=== PATIENT | male | born 1955 | race Caucasian/White ===

== ENCOUNTER → 2016-09-14 | Outpatient (CLI) | payer BC ==
[~2016-09-14] MED LIST: ADVIN25050 INH; ASPI325T45 PO; CHOL2000 PO; GLC/500 PO; LPT10 PO; MULT-506 PO; OMEG10007 PO; TIOTCAP INH
[2016-09-14 07:59] LABS: ESTIMATED AVERAGE GLUCOSE 134 mg/dl; HA1C FLAG Normal (Normal)
[2016-09-14 08:25] LABS: ALT/SGPT 33 U/L (12-78); BLOOD UREA NITROGEN 21 mg/dl (7-18); CALCIUM 9.3 mg/dl (8.5-10.1); CARBON DIOXIDE 31 mmol/L (21-32); CHLORIDE 105 mmol/L (98-107); CHOLESTEROL 154 mg/dl (0-200); GLUCOSE 112 mg/dl (70-99); POTASSIUM 4.3 mmol/L (3.5-5.1); SODIUM 144 mmol/L (136-145); TRIGLYCERIDES 126 mg/dl (0-150); VERY LOW DENSITY LIPOPROT CALC 25 mg/dl
[2016-09-14 08:28] LABS: ALB/GLOB RATIO 1.1 (0.9-2); ALKALINE PHOSPHATASE 72 U/L (45-117); AST/SGOT 24 U/L (15-37); CHOLESTEROL/HDL RATIO 3.9; HDL CHOLESTEROL 39 mg/dl; LDL CHOLESTEROL CALCULATED 90 mg/dl
== END | disposition home or self-care (01) ==
LOC: C.LAB 07:02
PROVIDERS: ATTEND Nurse Practitioner
DX: E11.9 Type 2 diabetes mellitus without complications (principal)

== ENCOUNTER → 2016-10-05 | Outpatient (CLI) | payer BC ==
[2016-10-05 09:06] LABS: BLOOD UREA NITROGEN 22 mg/dl (7-18); BUN/CREATININE RATIO 21.5 (10-20); CALCIUM 9.3 mg/dl (8.5-10.1); CARBON DIOXIDE 30 mmol/L (21-32); CHLORIDE 103 mmol/L (98-107); GLUCOSE 117 mg/dl (70-99); POTASSIUM 4.5 mmol/L (3.5-5.1); SODIUM 143 mmol/L (136-145)
== END | disposition home or self-care (01) ==
LOC: C.LAB 07:56
PROVIDERS: ATTEND Internal Medicine
DX: I10 Essential (primary) hypertension (principal); E11.9 Type 2 diabetes mellitus without complications

== ENCOUNTER → 2016-12-06 | Outpatient (CLI) | payer BC ==
[~2016-12-06] MED LIST changes: +OPTIRAY 320 IV PRN
--- NOTE | 2016-12-06 09:39 | DIAGNOSTIC IMAGING REPORT ---
Renal arterial Doppler DUPLEX RENAL ARTERY CLINICAL HISTORY: HYPERTENSION, PT NEEDS CT AFTER, BUT IS LEAVING COMING BACK hypertension TECHNIQUE: Arterial Doppler COMPARISON STUDY: None FINDINGS: Duplicated arterial structures to the right kidney. Velocity characteristics are unremarkable. Left kidney demonstrates normal arterial velocity characteristics. Impedance characteristics bilaterally are unremarkable. IMPRESSION: No significant stenotic process within the limitations of patient body habitus Electronically signed by: Matthew Rivas M.D. 12/06/2016 9:38 AM Dictated Date/Time: 12/06/2016 9:35 AM
--- NOTE | 2016-12-06 12:21 | DIAGNOSTIC IMAGING REPORT ---
CT SCAN OF THE ABDOMEN AND PELVIS WITH IV CONTRAST CLINICAL HISTORY: Adrenal nodules. COMPARISON STUDY: Abdominal CT dated 11/27/2015 and 07/31/2015. TECHNIQUE: Following the IV administration of 119 cc of Optiray 320, CT scan of the abdomen and pelvis is performed from the lung bases to the proximal femora. Images are reviewed in the axial, sagittal, and coronal planes. IV contrast was administered without complication. Automated dose control exposure was utilized. CT DOSE: 1082.60 mGycm FINDINGS: Lung bases: The heart is normal in size noting trace pericardial effusion. There is lipomatous hypertrophy of the interatrial septum. The lung bases are clear. There is a tiny hiatal hernia. Liver: The contrast-enhanced liver is normal in size, contour, and attenuation. There is no intrahepatic biliary ductal dilatation. The hepatic veins and portal veins are patent. Gallbladder: A calcified gallstone is identified. The gallbladder is otherwise normal as imaged. Spleen: Normal in size and attenuation. Pancreas: Unremarkable. Adrenal glands: There is a 4.2 cm left adrenal nodule and a 1.5 cm right adrenal nodule. These are unchanged from prior studies when differences in measurement technique are taken into account. These are incompletely characterized on today's examination but were previously shown to represent fat-containing adenomas. Kidneys: The contrast enhanced kidneys are normal in size and without hydronephrosis. The kidneys enhance symmetrically. Scattered cortical hypodensities measure up to 11 mm likely represent cysts but are too small for definitive characterization. Cortical scarring is seen in the lower pole of left kidney. Abdominal vasculature: There is advanced atherosclerotic calcification of the abdominal aorta. The patient is status post aortobiiliac stent graft repair of an infrarenal abdominal aortic aneurysm. The residual aneurysm sac measures 5.2 cm in AP diameter and 5.7 cm in transverse diameter. Bowel: A small bowel anastomosis is identified in the anterior abdomen. No bowel obstruction is seen. There are scattered colonic diverticula without CT evidence of acute diverticulitis. Moderate fecal retention is noted in the right colon. The appendix is not identified and reported surgically absent. Peritoneum: There is no intraperitoneal free air or abdominal ascites. Lymphadenopathy: None. Pelvic viscera: The prostate gland is diminutive and heterogeneous, noting coarse calcifications. The bladder wall appears thickened, possibly related to chronic outlet obstruction. Skeletal structures: No lytic or blastic lesions are seen. IMPRESSION: 1. There are no acute infectious or inflammatory findings in the abdomen or pelvis. 2. There are bilateral adrenal nodules, unchanged dating back to 07/31/2015. These were incompletely characterized on today's examination but were previously shown to represent fat-containing adenomas. 3. Mild colonic diverticulosis without CT evidence of acute diverticulitis. 4. There are postoperative changes from aortoiliac stent graft repair of an abdominal aortic aneurysm. The residual aneurysm sac measures 5.2 x 5.7 cm. 5. Cholelithiasis. 6. Additional findings as above. Electronically signed by: Dilip Cook M.D. 12/06/2016 12:19 PM Dictated Date/Time: 12/06/2016 12:12 PM
== END | disposition home or self-care (01) ==
LOC: C.CTS 08:35
PROVIDERS: ATTEND Internal Medicine
DX: I10 Essential (primary) hypertension (principal); E27.9 Disorder of adrenal gland, unspecified; K80.20 Calculus of gallbladder without cholecystitis without obstruction

== ENCOUNTER → 2017-02-04 | Outpatient (CLI) | payer BC ==
[~2017-02-04] MED LIST changes: -OPTIRAY 320 IV PRN
[2017-02-04 09:30] LABS: BASO % 0.5 %; BASO ABS # 0.05 K/uL (0-0.2); COMPLETE YES; EOS % 1.4 %; HEMATOCRIT 48.8 % (42-52); IG% 0.6 %; LYMPH % 16.9 %; LYMPH ABS # 1.82 K/uL (1.2-3.4); MEAN CORPUSCULAR HEMOGLOBIN 31.3 pg (25-34); MONO % 7.6 %; PLATELET COUNT 310 K/uL (130-400); RED BLOOD COUNT 4.98 M/uL (4.7-6.1)
[2017-02-04 09:43] LABS: CHOLESTEROL/HDL RATIO 3.7; PROSTATE SPECIFIC ANTIGEN 0.435 ng/ml (0.000-4.000)
[2017-02-04 09:56] LABS: ESTIMATED AVERAGE GLUCOSE 143 mg/dl; HA1C FLAG Normal (Normal)
== END | disposition home or self-care (01) ==
LOC: C.LAB 07:52
PROVIDERS: ATTEND Internal Medicine
DX: E11.9 Type 2 diabetes mellitus without complications (principal); I10 Essential (primary) hypertension; E78.5 Hyperlipidemia, unspecified; Z12.5 Encounter for screening for malignant neoplasm of prostate

== ENCOUNTER → 2017-06-07 | Outpatient (CLI) | payer BC | END | disposition home or self-care (01) | LOC: C.LAB 07:33 | PROVIDERS: ATTEND Internal Medicine | DX: Z11.59 Encounter for screening for other viral diseases (principal); E11.9 Type 2 diabetes mellitus without complications ==

== ENCOUNTER → 2017-11-25 | Day surgery (SDC) | payer BC ==
[2017-11-04 11:32] VITALS: Ht 180.3 cm; Wt 109.1 kg
[~2017-11-25] VITALS: Ht 180.3 cm; Wt 109.1 kg
[~2017-11-25] MED LIST changes: -ADVIN25050 INH; -ASPI325T45 PO; +ASPI400T11 PO; +ATOR-22 PO; +IRBE1TAB50 PO; +LIDOCAINE HCL 2% 2 ML VIAL (20MG/ML) ONE; -LPT10 PO; +MIDAZOLAM HCL 1 MG/ML 2ML VIAL ONE; +MULT-1093 PO; -MULT-506 PO; +ONDANSETRON INJ 2 MG/ML 2 ML VIAL ONE; +PROPOFOL IV EMULSION 10 MG/ML 20 ML VIAL IV ONE; +SODIUM CHLORIDE 0.9% 500ML 500 ML IV ONE; +SPRIN/30 INH; +SYMIN8045 INH; +TADA20TA PO; -TIOTCAP INH; +TRAM-10 PO
--- NOTE | 2017-11-25 09:54 | Endo History and Physical ---
History & Physical Date of Service: Nov 25, 2017. Chief Complaint: Screening Referring Physician: Dr. Bourgeois History of Present Illness 62 yo CM who presents for screening colonoscopy. Past Medical History Diabetes, High Cholesterol, COPD, Other Past Surgical History Hx Cardiac Surgery: No Hx Internal Defibrillator: No Hx Pacemaker: No Hx Abdominal Surgery: Yes (COLON RESECTION WITH APPY, AAA REPAIR) Hx of Implantable Prosthesis: No Hx Post-Op Nausea and Vomiting: No Hx Cancer Surgery: No Hx Thoracic Surgery: No Hx Orthopedic: Yes (ORIF LEFT ANKLE) Hx Urinary Tract Surgery: No Family History None Social History Smoking Status: Former Smoker Hx Substance Use: No Hx Alcohol Use: Yes (RARELY) Allergies Coded Allergies: No Known Allergies (Verified , 11/25/17) Current Medications Reported Home Medications Medications Dose Route/Sig Max Daily Dose Days Date Category Cialis (Tadalafil) 20 Mg Tab 20 Mg PO UD 11/04/17 Reported Ultram (Tramadol HCl) 50 Mg Tab 50 Mg PO Q8H PRN 11/04/17 Reported Irbesartan 300 Mg Tab 1 Tab PO QAM 11/04/17 Reported Glucophage (Metformin Hcl) 500 Mg Tab 2 Tab PO QPM 11/04/17 Reported Glucophage (Metformin Hcl) 500 Mg Tab 500 Mg PO QAM 11/04/17 Reported Lipitor (Atorvastatin Calcium) 20 Mg Tab 20 Mg PO QPM 11/04/17 Reported [place]-3 (Fish Oil) 1 Ea Cap 1 Cap PO QAM 11/04/17 Reported Vitamin D3 (Cholecalciferol) 2,000 Unit Cap 2 Cap PO QAM 11/04/17 Reported Centrum Silver 50+Men (Multiple Vitamins W/ Minerals) 1 Tab Tab 1 Tab PO QAM 11/04/17 Reported Anacin 400-32 mg (Aspirin-Caffeine) 1 Tab Tab 1 Tab PO QAM 11/04/17 Reported Spiriva Handihaler (Tiotropium Placida) 30 Puff/540 Mcg Aerp 1 Cap INH QAM 11/04/17 Reported Symbicort 80-4.5 Mcg/Act (Budesonide/Formoterol Fumarate) 60 Puffs/Inhaler Aero 2 Puff INH BID 11/04/17 Reported Vital Signs Weight (Kilograms): 109.09 Height (Feet): 5 Height (Inches): 11 Date Time Temp Pulse Resp B/P (MAP) Pulse Ox O2 Delivery O2 Flow Rate FiO2 11/25/17 09:07 36.7 89 18 137/82 (100) 91 Room Air Physical Exam General Appearance: WD/WN, no apparent distress Respiratory/Chest: Auscultation: breath sounds normal Cardiovascular: Heart Auscultation: RRR Abdomen: Bowel Sounds: normal Inspection & Palpation: soft, non-distended, no tenderness, guarding & rebound Assessment and Plan Assessment: 62 yo CM who presents for screening colonoscopy. Plan: Proceed with colonoscopy.
--- NOTE | 2017-11-25 10:26 | Discharge Instructions ---
Endoscopy Patient Instructions Date / Procedure(s) Performed Nov 25, 2017. Colonoscopy Allergy Information Coded Allergies: No Known Allergies (Verified , 11/25/17) Discharge Date / Findings Nov 25, 2017. Colon polyp Internal hemorrhoids Medication Instructions Stopped Medication(s): METFORMIN OK to resume all medications today as prescribed Reported Home Medications Medications Dose Route/Sig Max Daily Dose Days Date Category Cialis (Tadalafil) 20 Mg Tab 20 Mg PO UD 11/04/17 Reported Ultram (Tramadol HCl) 50 Mg Tab 50 Mg PO Q8H PRN 11/04/17 Reported Irbesartan 300 Mg Tab 1 Tab PO QAM 11/04/17 Reported Glucophage (Metformin Hcl) 500 Mg Tab 2 Tab PO QPM 11/04/17 Reported Glucophage (Metformin Hcl) 500 Mg Tab 500 Mg PO QAM 11/04/17 Reported Lipitor (Atorvastatin Calcium) 20 Mg Tab 20 Mg PO QPM 11/04/17 Reported [place]-3 (Fish Oil) 1 Ea Cap 1 Cap PO QAM 11/04/17 Reported Vitamin D3 (Cholecalciferol) 2,000 Unit Cap 2 Cap PO QAM 11/04/17 Reported Centrum Silver 50+Men (Multiple Vitamins W/ Minerals) 1 Tab Tab 1 Tab PO QAM 11/04/17 Reported Anacin 400-32 mg (Aspirin-Caffeine) 1 Tab Tab 1 Tab PO QAM 11/04/17 Reported Spiriva Handihaler (Tiotropium Gilbert) 30 Puff/540 Mcg Aerp 1 Cap INH QAM 11/04/17 Reported Symbicort 80-4.5 Mcg/Act (Budesonide/Formoterol Fumarate) 60 Puffs/Inhaler Aero 2 Puff INH BID 11/04/17 Reported Provider Instructions Activity Restrictions - No exercising or heavy lifting for 24 hours. - Do not drink alcohol the day of the procedure. - Do not drive a car or operate machinery until the day after the procedure. - Do not make any important decisions or sign important papers in 24 hours after the procedure. Following Day: - Return to full activity which may include returning to work/school. Diet Start your diet with liquids and light foods (jello, soup, juice, toast). Then eat your usual diet if not nauseated. Treatment For Common After Affects For mild abdominal pain, bloating, or excessive gas: - Rest - Eat lightly - Lie on right side Follow-Up Information Follow-up with Dr. Bourgeois as scheduled Anesthesia Information What You Should Know You have had a procedure that required some medicine to reduce anxiety and discomfort. This treatment is called moderate sedation. After receiving the treatment, you may be sleepy, but you will be able to breathe on your own. The effects of the treatment may last for several hours. Follow these instructions along with Activity/Diet recommendations noted above: * Do NOT do anything where dizziness or clumsiness would be dangerous. * Rest quietly at home today, then you can be up and about tomorrow. * Have a responsible person stay with you the rest of today. * You may have had an I.V. today. If so, you may take the dressing off later today. Recommendations Call your doctor if: * Trouble breathing * Continuous vomiting for more than 24 hours * Temperature above 101 degrees * Severe abdominal pain or bloating * Pain not relieved by pain medicine ordered * There is increased drainage or redness from any incision * A large amount of rectal bleeding greater than 2-3 tablespoons. (If you had a polyp/s removed or have hemorrhoids, a small amount of blood - from the rectum is to be expected.) * You have any unanswered questions or concerns. IN THE EVENT OF A SERIOUS EMERGENCY, GO TO THE NEAREST EMERGENCY ROOM Your discharge instructions were prepared by provider Nicholas Campbell. Patient Instructions Signature Page Tyree Caldwell Patient (or Guardian) Signature/Date: I have read and understand the instructions given to me by my caregivers. Caregiver/RN/Doctor Signature/Date: The above-named patient and/or guardian has received patient instructions on this date. + Original Patient Signature Page (only) stays with chart. Please make copy for patient.
--- NOTE | 2017-11-25 10:34 | GI REPORT ---
Procedure Date: 11/25/2017 9:39 AM Procedure: Colonoscopy Indications: Screening for colorectal malignant neoplasm Medicines: Monitored Anesthesia Care Complications: No immediate complications. Estimated Blood Loss: Estimated blood loss: none. Procedure: Pre-Anesthesia Assessment: - Prior to the procedure, a History and Physical was performed, and patient medications and allergies were reviewed. The patient's tolerance of previous anesthesia was also reviewed. The risks and benefits of the procedure and the sedation options and risks were discussed with the patient. All questions were answered, and informed consent was obtained. Prior Anticoagulants: The patient has taken aspirin, last dose was 1 day prior to procedure. ASA Grade Assessment: III - A patient with severe systemic disease. After reviewing the risks and benefits, the patient was deemed in satisfactory condition to undergo the procedure. After I obtained informed consent, the scope was passed under direct vision. Throughout the procedure, the patient's blood pressure, pulse, and oxygen saturations were monitored continuously. The Scope was introduced through the anus and advanced to the terminal ileum. The colonoscopy was performed without difficulty. The patient tolerated the procedure well. The quality of the bowel preparation was good. The terminal ileum, ileocecal valve, appendiceal orifice, and rectum were photographed. Findings: The perianal and digital rectal examinations were normal. A 18 mm polyp was found in the sigmoid colon. The polyp was pedunculated. The polyp was removed with a hot snare. Resection and retrieval were complete. Non-bleeding internal hemorrhoids were found during retroflexion. The hemorrhoids were small. Impression: - One 18 mm polyp in the sigmoid colon, removed with a hot snare. Resected and retrieved. - Non-bleeding internal hemorrhoids. Recommendation: - Resume previous diet. - Continue present medications. - Repeat colonoscopy for surveillance based on pathology results. - Return to primary care physician as previously scheduled. Nicholas Campbell DO 11/25/2017 10:34:05 AM This report has been signed electronically. Note Initiated On: 11/25/2017 9:39 AM I attest to the content of the Intraoperative Record and orders documented therein, exceptions below
[2017-11-25 10:56] VITALS: BP 138/76; PULSE 79; O2SAT 93
--- NOTE | 2017-11-25 10:58 | Anesthesiology Progress Note ---
Anesthesia Post Op Note Date & Time Nov 25, 2017 at 10:58 Vital Signs Pain Intensity: 0 Vital Signs Past 12 Hours Date Time Temp Pulse Resp B/P (MAP) Pulse Ox O2 Delivery O2 Flow Rate FiO2 11/25/17 10:56 79 18 138/76 (96) 93 Room Air 11/25/17 10:40 85 18 97/67 (77) 93 Room Air 11/25/17 10:27 36.7 84 16 97/51 (66) 95 Room Air 11/25/17 09:07 36.7 89 18 137/82 (100) 91 Room Air Notes Mental Status: alert / awake / arousable, participated in evaluation Pt Amnestic to Procedure: Yes Nausea / Vomiting: adequately controlled Pain: adequately controlled Airway Patency, RR, SpO2: stable & adequate BP & HR: stable & adequate Hydration State: stable & adequate Anesthetic Complications: no major complications apparent
== END | disposition home or self-care (01) ==
LOC: C.GI 08:23
PROVIDERS: ATTEND Internal Medicine
DX: Z12.11 Encounter for screening for malignant neoplasm of colon (principal); D12.5 Benign neoplasm of sigmoid colon; K64.8 Other hemorrhoids; I10 Essential (primary) hypertension; J44.9 Chronic obstructive pulmonary disease, unspecified; E11.9 Type 2 diabetes mellitus without complications; Z90.89 Acquired absence of other organs; Z90.49 Acquired absence of other specified parts of digestive tract; Z98.890 Other specified postprocedural states; Z87.891 Personal history of nicotine dependence; Z79.899 Other long term (current) drug therapy; Z79.82 Long term (current) use of aspirin

== ENCOUNTER → 2017-12-13 | Outpatient (CLI) | payer BC ==
[~2017-12-13] MED LIST changes: -LIDOCAINE HCL 2% 2 ML VIAL (20MG/ML) ONE; -MIDAZOLAM HCL 1 MG/ML 2ML VIAL ONE; -ONDANSETRON INJ 2 MG/ML 2 ML VIAL ONE; -PROPOFOL IV EMULSION 10 MG/ML 20 ML VIAL IV ONE; -SODIUM CHLORIDE 0.9% 500ML 500 ML IV ONE
[2017-12-13 09:15] LABS: ALBUMIN 3.7 gm/dl (3.4-5.0); ALT/SGPT 29 U/L (12-78); BLOOD UREA NITROGEN 20 mg/dl (7-18); CALCIUM 9.3 mg/dl (8.5-10.1); CARBON DIOXIDE 28 mmol/L (21-32); CHOLESTEROL 140 mg/dl (0-200); CREATININE 0.97 mg/dl (0.60-1.40); GLUCOSE 109 mg/dl (70-99); POTASSIUM 4.2 mmol/L (3.5-5.1); SODIUM 140 mmol/L (136-145)
[2017-12-13 09:18] LABS: ALKALINE PHOSPHATASE 78 U/L (45-117); AST/SGOT 17 U/L (15-37); LDL CHOLESTEROL CALCULATED 74 mg/dl; TOTAL PROTEIN 7.4 gm/dl (6.4-8.2)
[2017-12-13 09:48] LABS: HEMOGLOBIN A1C 6.5 % (4.5-5.6)
== END | disposition home or self-care (01) ==
LOC: C.LAB 07:24
PROVIDERS: ATTEND Nurse Practitioner
DX: E11.9 Type 2 diabetes mellitus without complications (principal)

== ENCOUNTER → 2018-01-26 | Outpatient (CLI) | payer BC ==
[~2018-01-26] MED LIST changes: +OPTIRAY 320 IV PRN
--- NOTE | 2018-01-26 09:57 | DIAGNOSTIC IMAGING REPORT ---
ABDOMEN AND PELVIS CT WITH IV AND ORAL CONTRAST CT DOSE: 1385.52 mGy.cm HISTORY: E27.9 Adrenal nodule [id number] TECHNIQUE: Multiaxial CT images of the abdomen and pelvis were performed following the use of intravenous and oral contrast. A dose lowering technique was utilized adhering to the principles of ALARA. COMPARISON STUDY: Abdomen and pelvis CT 12/06/2016 and 07/31/2015. FINDINGS: No change in size or appearance of the 4.0 x 2.8 cm left adrenal gland mass. This is indeterminate on this single phase study. Mild nodular thickening of the right adrenal gland remains unchanged. Mild dependent changes at the lung bases. No pneumoperitoneum. No pneumatosis. There are few small gallstones. The liver, spleen, and pancreas are unremarkable. Focal scarring within the lower pole of the left kidney. No hydronephrosis. Subcentimeter hypodense lesions within the kidneys are too small to characterize but favor cysts. These remain unchanged. No retroperitoneal lymphadenopathy. There is again noted aortobiiliac stent graft repair of an abdominal aortic aneurysm. The aneurysm sac measures up to 5.0 x 5.0 cm. This has decreased in size in the interval. The bladder is unremarkable. Colonic diverticulosis. No bowel wall thickening or obstruction. IMPRESSION: 1. No change in the 4.0 x 2.8 cm left adrenal gland mass. This is indeterminate on this study but was previously described as a benign adenoma. 2. Slight decrease in size in the abdominal aortic aneurysm status post aortobiiliac stent graft repair. 3. No bowel wall thickening or obstruction. 4. Cholelithiasis. 5. Colonic diverticulosis. Electronically signed by: Neil Martin M.D. 01/26/2018 9:55 AM Dictated Date/Time: 01/26/2018 9:44 AM
== END | disposition home or self-care (01) ==
LOC: C.CTS 09:05
PROVIDERS: ATTEND Internal Medicine
DX: E27.9 Disorder of adrenal gland, unspecified (principal); K80.20 Calculus of gallbladder without cholecystitis without obstruction; K57.30 Diverticulosis of large intestine without perforation or abscess without bleeding

== ENCOUNTER → 2018-04-27 | Outpatient (CLI) | payer BC ==
[~2018-04-27] MED LIST changes: -OPTIRAY 320 IV PRN
[2018-04-27 16:35] LABS: BASO % 0.3 %; BASO ABS # 0.03 K/uL (0-0.2); EOS % 1.1 %; EOS ABS # 0.11 K/uL (0-0.5); HEMATOCRIT 47.6 % (42-52); HEMOGLOBIN 15.7 g/dL (14.0-18.0); IG# 0.05 K/uL (0.00-0.02); LYMPH % 23.8 %; LYMPH ABS # 2.39 K/uL (1.2-3.4); MEAN CELL VOLUME 96.6 fL (80-100); MEAN CORPUSCULAR HEMOGLOBIN 31.8 pg (25-34); MEAN PLATELET VOLUME 10.2 fL (7.4-10.4); MONO % 7.9 %; MONO ABS # 0.79 K/uL (0.11-0.59); NEUT % 66.4 %; NEUT ABS # 6.69 K/uL (1.4-6.5); PLATELET COUNT 304 K/uL (130-400); RED CELL DISTRIBUTION WIDTH SD 49.6 fL (36.4-46.3); WHITE BLOOD COUNT 10.06 K/uL (4.8-10.8)
[2018-04-27 17:07] LABS: ALBUMIN 3.8 gm/dl (3.4-5.0); ALKALINE PHOSPHATASE 82 U/L (45-117); ALT/SGPT 37 U/L (12-78); AST/SGOT 18 U/L (15-37); BLOOD UREA NITROGEN 24 mg/dl (7-18); CARBON DIOXIDE 28 mmol/L (21-32); GLUCOSE 125 mg/dl (70-99); POTASSIUM 3.8 mmol/L (3.5-5.1); SODIUM 139 mmol/L (136-145); TOTAL PROTEIN 7.5 gm/dl (6.4-8.2)
== END | disposition home or self-care (01) ==
LOC: C.LAB 14:40
PROVIDERS: ATTEND Physician Assistant Medical
DX: E11.9 Type 2 diabetes mellitus without complications (principal); I10 Essential (primary) hypertension

== ENCOUNTER 2022-08-14 17:15 | Observation (INO) ==
--- NOTE | 2022-08-14 17:31 | ED Triage Note ---
Date of Service August 14, 2022 History of Present Illness This patient was briefly evaluated while in triage. An abbreviated physical exam was performed. This patient is a 67-year-old Male with past medical history of COPD who presents to the ED for evaluation of pancreatitis. Pt. was referred by PCP after CT scan and labs and was concerned for gallstone as well as pancreatitis. Physical Exam VITALS: Vitals are noted on the nurse's note and reviewed by myself. GENERAL: This is a 67 year old male, in no acute distress, nondiaphoretic, well- developed well-nourished. SKIN: No obvious rashes, edema, erythema HEAD: Normocephalic atraumatic. EYES: Conjunctivae without injection, sclerae without icterus. NECK: No JVD. LUNGS: No retractions or accessory muscle use. MUSCULOSKELETAL: Normal gait. NEURO: Patient was alert and oriented to person place and time. No focal neurological deficits. Initial orders for labs and / or imaging were placed and patient was placed in the waiting area until a bed is available. Please see further documentation for the full ED course.
[2022-08-14] MEDS ORDERED: SODIUM CHLORIDE 0.9% 1000ML 1,000 ML IV ONE (17:32)
[2022-08-14] MEDS ORDERED: KETOROLAC TROMETHAMINE 15 MG/ML VIAL IV STA (20:20)
[2022-08-14] MEDS ORDERED: ONDANSETRON INJ 2 MG/ML 2 ML VIAL IV STA (20:20)
--- NOTE | 2022-08-14 20:21 | Ultrasound Report ---
US abdomen limited CLINICAL HISTORY: Epigastric pain, cholelithiasis on CT TECHNIQUE: Multiple real-time sonographic images of the right upper quadrant were obtained. Comparison: Comparison is made to CT abdomen pelvis 08/14/2022 FINDINGS: The liver is diffusely echogenic in appearance with poor ultrasound penetration, with normal contour, which is consistent with fatty infiltration. A 1.1 x 1.0 x 1.7 cm hypoechoic area in the left lobe i s noted. No focal mass lesions are seen. No intrahepatic ductal dilatation is seen. Linear hypere choic foci with posterior shadowing are identified layering dependently within the gallbladder, which are consistent with gallstones. The gallbladder wall is not thickened. There is no pericholecystic f luid present. A sonographic Hernandez's sign was not elicited by the battery tester and repairer. The common duct jada sures 0.4 cm in diameter at the level of the hepatic artery. The visualized portions of the pancreas appear normal. The right kidney shows normal echogenicity, cortical thickness and renal contour. The right kidney sh ows no evidence of hydronephrosis or mass. No ascites or free fluid is seen in Chanel's pouch. IMPRESSION: 1. No acute abnormalities and in particular no evidence of acute cholecystitis. 2. Partially visualized left hepatic mass, nonspecific. If further evaluation is desired, nonemergen t CT or MRI liver mass protocol is recommended. ACT 112: Negative or not required by law. Electronically signed by: Karl Ledbetter M.D. 08/14/2022 8:19 PM
--- NOTE | 2022-08-14 21:21 | History & Physical Report ---
Date of Service August 14, 2022 Assessment & Plan (1) Acute pancreatitis: Plan: 67 yo male PMHx DM2, HTN, venous insufficiency of lower extremities, COPD, HLD, AAA s/p stent presents with 2 weeks of abdominal pain. #Acute Pancreatitis -presented with 2 weeks waxing/waning abd discomfort. Sent here by PCP with findings of acute pancreatitis on CT imaging. -Etiology unclear at this time. Suspect possible gallbladder pancreatitis with findings of cholelithiasis without signs of ductal obstruction/dilation. ?furosemide induced since this was newly prescribed 2 months ago and a known cause of drug induced pancreatitis. Very rare alcohol drinker. -WBC 14. Lipase 190. TGs 223. -Abdominal US: no evidence of acute cholecystitis -CT A/P: mild acute pancreatitis, gallbladder distention with cholelithiasis, no associated upstream atrophy or ductal dilation; as a precautionary measure a one month follow-up CT examination is recommended to exclude the less likely possibility of an underlying lesion -1L bolus in ED. Will cont. NSS @ 150mls/hr. -Tylenol and Toradol for pain relief -no abx indicated at this time -consider GI consult if suspicion of gallbladder pancreatitis -will hold home lasix until further evaluation of etiology #DM2 -hold home metformin -hyperglycemic protocol, SSI ordered -repeat A1c pending #HTN -cont. home irbesartan #Venous insufficiency -hold home lasix as above #COPD -cont. home spiriva, symbicort #HLD -cont. home statin #Anxiety/depression -cont. home wellbutrin DVT ppx: lovenox FEN/GI: NPO Code Status: full Dispo: med surg (2) Venous insufficiency of both lower extremities: (3) Type II diabetes mellitus: (4) COPD (chronic obstructive pulmonary disease): (5) AAA (abdominal aortic aneurysm) without rupture: (6) Hyperlipidemia: (7) Hypertension: History of Present Illness Chief Complaint: abdominal pain Primary Care Provider: Jose Martin Bourgeois MD 67 yo male PMHx DM2, HTN, venous insufficiency of lower extremities, COPD, HLD, AAA s/p stent presents with 2 weeks of abdominal pain. He was sent here by his primary care provider with findings of acute pancreatitis on CT imaging. Shortly after Thanksgiving patient started having waxing and waning diffuse abdominal discomfort exacerbated after eating. He was in a lot of pain last night which had improved by this morning. In general he has lost his appetite since symptom onset. He has tried to tolerate liquid broths and advance diet but he been unable to do so without setback. He is passing gas but has had ongoing constipation unresolved with miralax and ducolax. Associated nausea. Denies fevers, chills, fatigue, chest pain, sob, vomiting, blood in stool, diarrhea. Very rare alcohol use, maybe has one beer a year. His mom did have a h/o gallbladder disease with subsequent cholecystectomy. Of note, pt did recently start furosemide in June 2022 for his venous insufficiency. Allergies Allergy/AdvReac Type Severity Reaction Status Date / Time No Known Allergies Allergy Verified 08/14/22 13:34 Home Medications Medication Instructions Recorded Confirmed Type cholecalciferol (vitamin D3) 50 2,000 unit PO QAM 12/23/19 08/14/22 History mcg (2,000 unit) tablet aspirin 81 mg tablet,delayed 81 mg PO QAM 01/08/21 08/14/22 History release metformin 500 mg tablet,extended 500 mg PO .COMPLEX #270 tabs 10/22/21 08/14/22 Rx release 24 hr budesonide-formoterol HFA 80 2 puff inhalation BID #10.2 grams 01/24/22 08/14/22 Rx mcg-4.5 mcg/actuation aerosol inhaler (Symbicort) irbesartan 150 mg tablet 150 mg PO QAM #90 tabs 04/05/22 08/14/22 Rx bupropion HCl 150 mg 24 hr tablet, 150 mg PO QAM #30 tabs 05/06/22 08/14/22 Rx extended release atorvastatin 20 mg tablet 20 mg PO HS #90 tabs 06/10/22 08/14/22 Rx tramadol 50 mg tablet See Rx Instructions PO Q6H PRN 06/10/22 08/14/22 Rx Pain #100 tabs furosemide 40 mg tablet 40 mg PO Q OTHER DAY 08/14/22 08/14/22 History potassium chloride 10 mEq 10 meq PO Q OTHER DAY 08/14/22 08/14/22 History capsule,extended release tiotropium bromide 18 mcg capsule 1 cap inhalation QPM 08/14/22 08/14/22 History with inhalation device (Spiriva with HandiHaler) Past Med/Surg History Medical History Adrenal nodule s/p left adrenalectomy for cortisol secreting adenoma Aneurysm AAA - 2016 - [facility] Chronic obstructive pulmonary disease WELL CONTROLLED Diabetes mellitus, type 2 NIDDM History of aortic aneurysm FOLLOWS WITH DR. GALLARDO Tubular adenoma of colon Type II diabetes mellitus Surgical History History of appendectomy History of bowel resection APPROX 20 yr ago History of cataract surgery Bilateral History of colonoscopy History of open reduction and internal fixation (ORIF) procedure left ankle History of tooth extraction Hx of total adrenalectomy left S/P AAA repair 2015 Family History Aunt Ovarian cancer Mother Diabetes Hypertension Father Diabetes Hypertension Denies family history of Prostate cancer Myocardial infarction Breast cancer Colorectal cancer Social History Smoking Status: Current some day smoker Second Hand Exposure: No; Do You Dip or Chew Tobacco: No; Tobacco Cessation Education Requested by Patient: No Hx Alcohol Use: No Hx Substance Use: No Preferred Language: Armenian Communication Ability: Effective Visual Impairment: No Limitations Corn Grinder Required: No Beliefs That Will Affect Care: None marital status: Current Living Situation: Spouse Other Information That Helps Us Care for You: No Feels Safe at Home: Yes Safety Concerns: Feels Safe At This Time caffeine: Yes Seatbelt Use: always Sunscreen Use: No Assistive Devices: None Review of Systems Review of Systems: All systems reviewed & are unremarkable except as noted in HPI & below Physical Exam Physical Exam: Constitutional: in no acute distress, pleasant, morbidly obese. Vitals as above. HEENT: No scleral injection or discharge.Moist mucous membranes. Clear oropharynx without exudate/erythema. Neck: Supple without lymphadenopathy or thyromegaly. Trachea midline. Lungs: Clear to auscultation bilaterally with good effort. Cardiac: RRR. No murmurs.2+ distal peripheral pulses. No JVD. Abdomen: Bowel sounds present. Soft. Mildly distended. Mild epigastric and RUQ tenderness. Neg [place].No guarding or rebound tenderness. No hepatosplenomegaly. MSK: No cyanosis or clubbing. Extremities motor strength 5/5. Skin: No rashes, warm, dry. Neurologic: No focal deficits. Psych: AOx3 Results & Data Results & Data ([facility]) Vital Signs (Past 12 Hours) Vital Signs Temp Pulse Resp BP Pulse Ox O2 Del Method 08/14/22 17:30 36.9 C 122 H 19 101/64 90 Room Air Laboratory Results Impressions Abdomen Ultrasound 08/14/22 17:32 US abdomen limited CLINICAL HISTORY: Epigastric pain, cholelithiasis on CT TECHNIQUE: Multiple real-time sonographic images of the right upper quadrant w ere obtained. Comparison: Comparison is made to CT abdomen pelvis 08/14/2022 FINDINGS: The liver is diffusely echogenic in appearance with poor ultrasound penetration, with normal contour, which is consistent with fatty infiltration. A 1.1 x 1.0 x 1.7 cm hypoechoic area in the left lobe is noted. No focal mass lesions are seen. No intrahepatic ductal dilatation is seen. Linear hyperechoic foci with posterior shadowing are identified layering dependently within the gallbladder, which are consistent with gallstones. The gallbladder wall is not thickened. There is no pericholecystic fluid present. A sonographic Hernandez's sign was not elicited by the marine habitat resource specialist. The common duct measures 0.4 cm in diameter at the level of the hepatic artery. The visualized portions of the pancreas appear normal. The right kidney shows normal echogenicity, cortical thickness and renal contour. The right kidney shows no evidence of hydronephrosis or mass. No ascites or free fluid is seen in Chanel's pouch. IMPRESSION: 1. No acute abnormalities and in particular no evidence of acute cholecystitis. 2. Partially visualized left hepatic mass, nonspecific. If further evaluation is desired, nonemergent CT or MRI liver mass protocol is recommended. ACT 112: Negative or not required by law. Electronically signed by: Karl Ledbetter M.D. 08/14/2022 8:19 PM Supervising Physician Co-Signing Physician Notes Attending addendum: I have physically seen this patient, have supervised the medical residents activities, and agree with the H&P unless as otherwise noted. Assessment and Plan: Acute pancreatitis- Different etiologies including gallbladder associated, medication induced furosemide Lipase 190 upon admission, follow serially along with LFTs, which were on admission normal Abdominal ultrasound no evidence of acute cholecystitis CT abdomen pelvis shows mild acute pancreatitis gallbladder distention with cholelithiasis Status post 1 L normal saline bolus in the ED and will continue 150 mils per hour MRCP if symptoms persist and/or progress Diabetes mellitus- Hold metformin Patient Accu-Cheks with SSI Hypertension- Continue irbesartan Venous insufficiency- Hold furosemide Remaining orders and notations as noted Resident Activity Tracking Resident Involvement: Resident Care Provided Care Provided: Adult [facility]
[2022-08-14] MEDS ORDERED: ONDANSETRON INJ 2 MG/ML 2 ML VIAL IV PRN (23:01)
[2022-08-14] MEDS ORDERED: GLUCOSE 40% GEL 15 GM TUBE PO PRN (23:01)
[2022-08-14] MEDS ORDERED: ACETAMINOPHEN 325 MG TAB PO PRN (23:01)
[2022-08-14] MEDS ORDERED: KETOROLAC TROMETHAMINE 15 MG/ML VIAL IV PRN (23:01)
[2022-08-14] MEDS ORDERED: CARBOHYDRATES FOR HYPOGLYCEMIA PO PRN (23:01)
[2022-08-14] MEDS ORDERED: DEXTROSE 50% 50 ML SYRINGE IV PRN (23:01)
[2022-08-14] MEDS ORDERED: GLUCAGON FOR INJ 1 MG VIAL SQ PRN (23:01)
[2022-08-14] MEDS ORDERED: GLUCOSE 10 TAB/TUBE PO PRN (23:01)
[2022-08-14] MEDS: SODIUM CHLORIDE 0.9% 1000ML 1,000 ML IV SCH (23:22)
[2022-08-14] MEDS ORDERED: Nursing to Pharmacy Communication SCH (23:30)
[2022-08-15] MEDS: INSULIN ASPART PER UNIT SC SCH ×3 (00:17→14:53)
[2022-08-15] MEDS: ENOXAPARIN INJ 40 MG/0.4 ML SYR SQ SCH ×2 (00:54→21:45)
--- NOTE | 2022-08-15 02:56 | Emergency Department Note ---
History of Present Illness General Chief Complaint: GI Assessment Stated Complaint: PANCREATITIS, REFERRED BY DOC, Time Seen by Provider: 08/14/22 20:16 History of Present Illness Provider Complaint: abdominal pain Onset (ago): 3 day(s) Pain Consistency: constant Location: epigastric Radiation: none Severity: moderate Maximum Pain Intensity: 8 Current Pain Intensity: 8 Quality: + stabbing and + sharp Relieved By: + nothing Exacerbated By: + eating Context: no foreign travel, no possible food poisoning, no sick contacts, no recent antibiotic use, no recent surgery/procedure or no recent injury Associated Symptoms: + nausea; no vomiting, no diarrhea, no fever, no chills, no constipation, no dysuria, no hematemesis, no hematochezia, no hematuria, no anorexia and no headache Home Medications Medication Instructions Recorded Confirmed Type cholecalciferol (vitamin D3) 50 2,000 unit PO QAM 12/23/19 08/14/22 History mcg (2,000 unit) tablet aspirin 81 mg tablet,delayed 81 mg PO QAM 01/08/21 08/14/22 History release metformin 500 mg tablet,extended 500 mg PO .COMPLEX #270 tabs 10/22/21 08/14/22 Rx release 24 hr budesonide-formoterol HFA 80 2 puff inhalation BID #10.2 grams 01/24/22 08/14/22 Rx mcg-4.5 mcg/actuation aerosol inhaler (Symbicort) irbesartan 150 mg tablet 150 mg PO QAM #90 tabs 04/05/22 08/14/22 Rx bupropion HCl 150 mg 24 hr tablet, 150 mg PO QAM #30 tabs 05/06/22 08/14/22 Rx extended release atorvastatin 20 mg tablet 20 mg PO HS #90 tabs 06/10/22 08/14/22 Rx tramadol 50 mg tablet See Rx Instructions PO Q6H PRN 06/10/22 08/14/22 Rx Pain #100 tabs furosemide 40 mg tablet 40 mg PO Q OTHER DAY 08/14/22 08/14/22 History potassium chloride 10 mEq 10 meq PO Q OTHER DAY 08/14/22 08/14/22 History capsule,extended release tiotropium bromide 18 mcg capsule 1 cap inhalation QPM 08/14/22 08/14/22 History with inhalation device (Spiriva with HandiHaler) Allergies Allergy/AdvReac Type Severity Reaction Status Date / Time No Known Allergies Allergy Verified 08/14/22 13:34 Past Med/Surg History Medical History 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 GALLARDO Tubular adenoma of colon Type II diabetes mellitus Surgical History History of appendectomy History of bowel resection APPROX 20 yr ago History of cataract surgery Bilateral History of colonoscopy History of open reduction and internal fixation (ORIF) procedure left ankle History of tooth extraction Hx of total adrenalectomy left S/P AAA repair 2015 Family History Aunt Ovarian cancer Mother Diabetes Hypertension Father Diabetes Hypertension Denies family history of Prostate cancer Myocardial infarction Breast cancer Colorectal cancer Social History Smoking Status: Current some day smoker Second Hand Exposure: No; Do You Dip or Chew Tobacco: No; Tobacco Cessation Education Requested by Patient: No Hx Alcohol Use: No Hx Substance Use: No Preferred Language: Romanian Communication Ability: Effective Visual Impairment: No Limitations Kettle Cook Required: No Beliefs That Will Affect Care: None marital status: Current Living Situation: Spouse Other Information That Helps Us Care for You: No Feels Safe at Home: Yes Safety Concerns: Feels Safe At This Time caffeine: Yes Seatbelt Use: always Sunscreen Use: No Assistive Devices: Denture - Upper and Glasses Review of Systems A total of 10 systems reviewed and were otherwise negative Physical Exam Vital Signs: Vital Signs - 24 hr 08/14/22 17:30 08/14/22 21:16 Temperature 36.9 C Temperature Source Temporal Artery Sc an Pulse Rate 122 H Pulse Rate [Apical ] 110 H Respiratory Rate 19 20 Respiratory Effort / Characteristics Non-Labored Sponta neous Non-Labored Respiratory Depth Normal Normal Blood Pressure 101/64 Blood Pressure [Le ft Arm] 107/74 Blood Pressure Saundra n 76 Blood Pressure Saundra n [Left Arm] 85 Pulse Oximetry 90 99 Oxygen Delivery Me thod Room Air Room Air Sepsis Recent Feve r Within 48 Hours No Sepsis New/Unexpla ined Change in Men nanette Status N/A Sepsis Action Take n by Nursing No Action Required Physical Exam: Physical Exam GENERAL: He is oriented to person, place, and time. He appears well-developed and well-nourished. He does not appear distressed. HENT: Exam performed. - Head: Normocephalic and atraumatic. - Right Ear: External ear normal. No mastoid tenderness. - Left Ear: External ear normal. No mastoid tenderness. - Mouth/Throat: The oropharynx is clear and moist. No trismus in the jaw. No dental abscesses or uvula swelling. No oropharyngeal exudate or tonsillar abscesses. EYES: Conjunctivae and EOM are normal. Pupils are equal, round, and reactive to light. Right eye exhibits no discharge. Left eye exhibits no discharge. No scleral icterus. NECK: Normal range of motion. Neck supple. No JVD present. No spinous process tenderness present. No carotid bruit present. No rigidity. No tracheal deviation and normal range of motion present. No Brudzinski's sign and no Kernig's sign noted. CV: Normal rate, regular rhythm, normal heart sounds and intact distal pulses. There is no peripheral edema. Palpable radial pulses bue. PULM/CHEST: Effort normal and breath sounds normal. No respiratory distress. No stridor. He has no wheezes. He has no rales. - Chest Wall: He exhibits no tenderness. ABD: The abdomen is soft. Bowel sounds are normal. He has no distension. No mass is present. There is no tenderness. There is no rebound, no guarding, no Hernandez's sign and no tenderness at McBurney's point. Rovsig negative. MUSC/SKEL: Normal range of motion. There is no peripheral edema, tenderness or deformity. LYMPH: No cervical adenopathy. NEURO: He is alert and oriented to person, place, and time. He has normal strength. No cranial nerve deficit or sensory deficit. Coordination and gait normal. GCS eye subscore is 4. GCS verbal subscore is 5. GCS motor subscore is 6. Cerebellar tests wnl. SKIN: Skin is warm and dry. He is not diaphoretic. PSYCH: He has a normal mood and affect. Behavior is normal. Judgment and thought content normal. Course Course 2016: The patient was evaluated in room C4. A complete history and physical exam was performed Administered Medications Enoxaparin Sodium (Enoxaparin Inj 40 Mg/0.4 Ml Syr) 40 mg SQ PM ORALIA Stop: 09/13/22 23:00 Last Admin: 08/15/22 00:54 Dose: 40 mg Documented By: DINA Sodium Chloride (Nss 1000ml) 1,000 mls @ 150 mls/hr IV .Q6H40M ORALIA Stop: 09/13/22 20:29 Last Admin: 08/14/22 23:22 Dose: 150 mls/hr Documented By: DINA Insulin Aspart (Insulin Aspart Per Unit) 0 units SC Q6 ORALIA Stop: 09/14/22 00:00 Last Admin: 08/15/22 00:17 Dose: Not Given Documented By: DINA Co-signed By: JOAN Discontinued Medications Sodium Chloride (Nss 1000ml) 1,000 mls @ 999 mls/hr IV .Q1H1M ONE Stop: 08/14/22 18:32 Last Infusion: 08/14/22 23:20 Dose: 0 mls/hr Documented By: Admin: 08/14/22 20:51 Dose: 999 mls/hr Documented By: ISADORA Ketorolac Tromethamine (Ketorolac Tromethamine 15 Mg/Ml Vial) 15 mg IV NOW STA Stop: 08/14/22 20:21 Last Admin: 08/14/22 20:51 Dose: 15 mg Documented By: ISADORA Ondansetron HCl (Ondansetron Inj 2 Mg/Ml 2 Ml Vial) 4 mg IV NOW STA Stop: 08/14/22 20:21 Last Admin: 08/14/22 20:51 Dose: 4 mg Documented By: ISADORA Medical Decision Making Laboratory Data Lab Results 08/14/22 Range/Units 21:35 SARS-CoV-2, RNA, NAAT NEGATIVE (NEGATIVE) Imaging Data Radiologist's Impression: Abdomen Ultrasound 08/14/22 17:32 US abdomen limited CLINICAL HISTORY: Epigastric pain, cholelithiasis on CT TECHNIQUE: Multiple real-time sonographic images of the right upper quadrant were obtained. Comparison: Comparison is made to CT abdomen pelvis 08/14/2022 FINDINGS: The liver is diffusely echogenic in appearance with poor ultrasound penetration, with normal contour, which is consistent with fatty infiltration. A 1.1 x 1.0 x 1.7 cm hypoechoic area in the left lobe is noted. No focal mass lesions are seen. No intrahepatic ductal dilatation is seen. Linear hyperechoic foci with posterior shadowing are identified layering dependently within the gallbladder, which are consistent with gallstones. The gallbladder wall is not thickened. There is no pericholecystic fluid present. A sonographic Hernandez's sign was not elicited by the director radio news. The common duct measures 0.4 cm in diameter at the level of the hepatic artery. The visualized portions of the pancreas appear normal. The right kidney shows normal echogenicity, cortical thickness and renal contour. The right kidney shows no evidence of hydronephrosis or mass. No ascites or free fluid is seen in Chanel's pouch. IMPRESSION: 1. No acute abnormalities and in particular no evidence of acute cholecystitis. 2. Partially visualized left hepatic mass, nonspecific. If further evaluation is desired, nonemergent CT or MRI liver mass protocol is recommended. ACT 112: Negative or not required by law. Electronically signed by: Karl Ledbetter M.D. 08/14/2022 8:19 PM [facility] Narrative Cardiac monitoring: An order was placed for continuous cardiac monitoring. The monitor shows a rate of 90 with sinus rhythm EMR reviewed. Patient had lab work done today outpatient today which showed lipase of 190 AST ALT alkaline phosphatase within normal limits. Leukocytosis of 14.29. Patient also had a CT scan of the abdomen which showed pancreatitis. There is gallbladder distention with cholelithiasis no evidence of cholecystitis. [facility]. Impression & Plan Acute pancreatitis Discharge Plan Visit Data Chief Complaint: GI Assessment Stated Complaint: PANCREATITIS, REFERRED BY DOC, ED Provider: Jim Henry Discharge Problem: Acute pancreatitis Patient Disposition: Admitted As Inpatient Discharge Instructions Interventions: ED Discharge Assessment Last Done: 08/14/22 22:56 : Acute pancreatitis Qualifiers: Pancreatitis type: unspecified pancreatitis type Acute pancreatitis complication: unspecified Qualified Code(s): K85.90 - Acute pancreatitis without necrosis or infection, unspecified
[2022-08-15 06:08] LABS: Basophils # (auto) 0.05 K/uL (0-0.2); Basophils % (auto) 0.5 %; Eosinophils % (auto) 0.9 %; Hematocrit (blood only) 54.3 % (40.1-51.0); Hemoglobin 17.8 g/dl (14.0-18.0); Immature Granulocytes # (auto) 0.06 K/uL (0.00-0.02); Immature Granulocytes % (auto) 0.6 %; Lymphocytes # (auto) 1.79 K/uL (1.2-3.4); Lymphocytes % (auto) 16.9 %; Mean Corpuscular Hemoglobin 30.6 pg (25.0-34.0); Mean Corpuscular Hgb Conc 32.8 g/dL (32.0-36.0); Mean Corpuscular Volume 93.3 fL (80.0-100.0); Mean Platelet Volume 9.5 fL (9.4-12.4); Monocytes # (auto) 0.97 K/uL (0.24-0.82); Monocytes % (auto) 9.2 %; Neutrophils # (auto) 7.62 K/uL (1.4-6.5); Neutrophils % (auto) 71.9 %; Platelet Count 261 K/uL (130-400); RDW Coefficient of Variation 14.2 % (11.5-14.5); RDW Standard Deviation 48.9 fL (36.4-46.3); Red Blood Count 5.82 M/uL (4.63-6.08); White Blood Count 10.59 K/ul (4.8-10.8)
[2022-08-15] MEDS: SODIUM CHLORIDE 0.9% 1000ML 1,000 ML IV SCH ×2 (06:12→12:57)
[2022-08-15 06:31] LABS: Albumin Globulin Ratio 1.3 (0.9-2); BUN Creatinine Ratio 26.6 (10-20); Bilirubin,Total 0.8 mg/dl (0.2-1.0); Calcium 9.6 mg/dl (8.5-10.1); Creatinine Clr Calc Pharmacy 83.6 ml/min; Est GFR (African American) 82.1 ml/min; Est GFR (Non-African American) 70.9 ml/min; Globulin 3.1 gm/dl (2.5-4.0); Potassium 4.5 mmol/L (3.5-5.1); Total Protein 7.1 gm/dl (6.0-8.3)
[2022-08-15] MEDS ORDERED: INSULIN ASPART PER UNIT SC SCH (07:30)
[2022-08-15 08:00] LABS: Estimated Average Glucose 157 mg/dl; Hemoglobin A1C 7.1 % (4.5-5.6)
[2022-08-15] MEDS: buPROPion XL 150 MG TABCR PO SCH (09:35)
[2022-08-15] MEDS: IRBESARTAN 150 MG TAB PO SCH (09:36)
[2022-08-15] MEDS: UMECLIDINIUM BROMIDE 62.5MCG/BLISTER 7 PUFFS/INHALER INH SCH (11:31)
[2022-08-15] MEDS: FLUTICASONE/VILANTEROL 100/25MCG 14 PUFFS/INHALER INH SCH (11:31)
--- NOTE | 2022-08-15 15:14 | Hospitalist Progress Note ---
Date of Service August 15, 2022 Assessment & Plan (1) Acute pancreatitis: Plan: Mild elevation of lipase to 180. Start full liquid diet. Expect discharge by tomorrow Constipation new onsetcontinue MiraLAX at home. Admits to not eating fibers much. Will start now (2) Type II diabetes mellitus: Plan: Stop sliding scale insulin blood sugars 103, 108. Start metformin extended release 500 mg daily which is home dose (3) COPD (chronic obstructive pulmonary disease): Plan: Oxygen saturations marginal at 91%. Not needing oxygen. Continue home inhalers (4) Hypertension: Plan: Well-controlled on irbesartan On Lasix 40 mg every other day since June after seen by cardiology for venous insufficiency of his legs. Continue. Normal renal function (5) Hyperlipidemia: Plan: fasting lipid panel : 07/26,Triglycerides 223 LDL 70 (6) Nicotine dependence: Plan: Counseled to stop smoking. Says he smokes when he is stressed but since skilled nursing, the stress has gone down. denies depressed mood. Will readdress at discharge Plan Anticipate discharge by tomorrow afternoon. Admission and Anticipated Discharge Date Admission Date: August 14, 2022 Subjective seen at 1330 h No complaints. Complains of being thirsty. Denies abdominal pain.excited about plan to start liquids. Had had abdominal pain for over 10 days and was attributing it to constipation. Took MiraLAX and Dulcolax suppository at home which caused to him to have a bowel movement. Usually not constipated. Does not drink any alcohol. Smokes 5 to 6 cigarettes a day. Denies any shortness of breath/dizziness/nausea or vomiting. No chest pain. Physical Exam Physical Exam: Pleasant alert male, cheerful and conversant, looks well, obese Head and neck moist oral mucosa, anicteric sclerae Chest is clear to auscultation Abdomen distended, nontender [employer] grossly intact Extremities no edema Results & Data Results & Data ([facility]) Vital Signs (Past 12 Hours) Vital Signs Temp Pulse Resp BP BP Pulse Ox O2 Del Method 08/15/22 12:44 36.6 C 80 18 122/64 92 Room Air 08/15/22 11:00 36.7 C 90 18 111/62 91 Room Air 08/15/22 09:50 Room Air 08/15/22 07:29 36.6 C 86 20 115/71 90 Room Air Laboratory Results Abnormal lab results 08/14/22 08/15/22 08/15/22 Range/Units 23:52 05:45 05:45 Hct 54.3 H (40.1-51.0) % RDW Std Deviation 48.9 H (36.4-46.3) fL Neut # (Auto) 7.62 H (1.4-6.5) K/uL [place] # (Auto) 0.97 H (0.24-0.82) K/uL Immature Gran # (Auto) 0.06 H (0.00-0.02) K/uL Sodium 135 L (136-145) mmol/L BUN 29 H (6-23) mg/dl BUN/Creatinine Ratio 26.6 H (10-20) Glucose 105 H (70-99(Fasting)) mg/dl POC Glucose 103 H (70-99) mg/dl Hemoglobin A1c (4.5-5.6) % Lipase 188 H (11-82) U/L 08/15/22 08/15/22 Range/Units 05:45 06:03 Hct (40.1-51.0) % RDW Std Deviation (36.4-46.3) fL Neut # (Auto) (1.4-6.5) K/uL [place] # (Auto) (0.24-0.82) K/uL Immature Gran # (Auto) (0.00-0.02) K/uL Sodium (136-145) mmol/L BUN (6-23) mg/dl BUN/Creatinine Ratio (10-20) Glucose (70-99(Fasting)) mg/dl POC Glucose 103 H (70-99) mg/dl Hemoglobin A1c 7.1 H (4.5-5.6) % Lipase (11-82) U/L Medications Administered Home Medications Medication Instructions Recorded Confirmed Last Taken cholecalciferol (vitamin D3) 50 2,000 unit PO QAM 12/23/19 08/14/22 01/13/21 mcg (2,000 unit) tablet aspirin 81 mg tablet,delayed 81 mg PO QAM 01/08/21 08/14/22 01/12/21 release metformin 500 mg tablet,extended 500 mg PO .COMPLEX #270 tabs 10/22/21 08/14/22 Unknown release 24 hr budesonide-formoterol HFA 80 2 puff inhalation BID #10.2 grams 01/24/22 08/14/22 Unknown mcg-4.5 mcg/actuation aerosol inhaler (Symbicort) irbesartan 150 mg tablet 150 mg PO QAM #90 tabs 04/05/22 08/14/22 Unknown bupropion HCl 150 mg 24 hr tablet, 150 mg PO QAM #30 tabs 05/06/22 08/14/22 Unknown extended release atorvastatin 20 mg tablet 20 mg PO HS #90 tabs 06/10/22 08/14/22 Unknown tramadol 50 mg tablet See Rx Instructions PO Q6H PRN 06/10/22 08/14/22 Unknown Pain #100 tabs furosemide 40 mg tablet 40 mg PO Q OTHER DAY 08/14/22 08/14/22 Unknown potassium chloride 10 mEq 10 meq PO Q OTHER DAY 08/14/22 08/14/22 Unknown capsule,extended release tiotropium bromide 18 mcg capsule 1 cap inhalation QPM 08/14/22 08/14/22 Unknown with inhalation device (Spiriva with HandiHaler) Active Medications Generic Name Dose Route Start Last Admin Trade Name Freq PRN Reason Stop Dose Admin Bupropion HCl 150 mg 08/15/22 09:00 08/15/22 09:35 Bupropion Xl 150 Mg Tabcr PO 09/14/22 08:59 150 mg QAM ORALIA Administration Enoxaparin Sodium 40 mg 08/14/22 23:45 08/15/22 00:54 Enoxaparin Inj 40 Mg/0.4 Ml Syr SQ 09/13/22 23:00 40 mg PM ORALIA Administration Fluticasone/Vilanterol 1 puffs 08/15/22 09:00 08/15/22 11:31 Fluticasone/Vilanterol 100/25mcg 14 Puffs/Inhaler INH 09/14/22 08:59 Not Given DAILY ORALIA Irbesartan 150 mg 08/15/22 09:00 08/15/22 09:36 Irbesartan 150 Mg Tab PO 09/14/22 08:59 150 mg QAM ORALIA Administration Umeclidinium [place] 1 puffs 08/15/22 09:00 08/15/22 11:31 Umeclidinium [place] 62.5mcg/Blister 7 Puffs/Inhaler INH 09/14/22 08:59 Not Given QAM ORALIA PG Care Time/CCT Total # of Minutes Spent Total Time Spent with Patient: Total time spent is greater than 50% in coordination of care (as documented) at patient's floor/unit and/or counseling patient: Coding Level of Care Code 36802 Subseq Hosp Care Lvl 3 Diagnoses Acute pancreatitis K85.90 Acute pancreatitis complication: unspecified Pancreatitis type: unspecified pancreatitis type Type II diabetes mellitus E11.9 COPD (chronic obstructive pulmonary disease) J44.9 Hypertension I10 Hyperlipidemia E78.5 Nicotine dependence F17.200 (1) Acute pancreatitis Acute pancreatitis complication: unspecified Pancreatitis type: unspecified pancreatitis type Qualified Code(s): K85.90 - Acute pancreatitis without necrosis or infection, unspecified
[2022-08-15] MEDS: metFORMIN HCL ER 500 MG TABCR PO SCH (17:39)
[2022-08-15] MEDS ORDERED: ATORVASTATIN 20 MG TAB PO SCH (21:00)
--- NOTE | 2022-08-15 22:55 | Billing Data ---
Date of Service August 15, 2022 Coding Level of Care Code INT OBSERVATION CARE 70M LVL 3
[2022-08-16] MEDS: IRBESARTAN 150 MG TAB PO SCH (08:06)
[2022-08-16] MEDS: buPROPion XL 150 MG TABCR PO SCH (08:06)
[2022-08-16] MEDS: UMECLIDINIUM BROMIDE 62.5MCG/BLISTER 7 PUFFS/INHALER INH SCH (08:07)
[2022-08-16] MEDS: FLUTICASONE/VILANTEROL 100/25MCG 14 PUFFS/INHALER INH SCH (08:08)
[2022-08-16] MEDS: metFORMIN HCL ER 500 MG TABCR PO SCH (16:47)
--- NOTE | 2022-08-16 16:47 | Discharge Summary ---
Date of Service August 16, 2022 Admission HPI Per Admitting Provider 67 yo male PMHx DM2, HTN, venous insufficiency of lower extremities, COPD, HLD, AAA s/p stent presents with 2 weeks of abdominal pain. He was sent here by his primary care provider with findings of acute pancreatitis on CT imaging. Shortly after Thanksgiving patient started having waxing and waning diffuse abdominal discomfort exacerbated after eating. He was in a lot of pain last night which had improved by this morning. In general he has lost his appetite since symptom onset. He has tried to tolerate liquid broths and advance diet but he been unable to do so without setback. He is passing gas but has had ongoing constipation unresolved with miralax and ducolax. Associated nausea. Denies fevers, chills, fatigue, chest pain, sob, vomiting, blood in stool, diarrhea. Very rare alcohol use, maybe has one beer a year. His mom did have a h/o gallbladder disease with subsequent cholecystectomy. Of note, pt did recently start furosemide in June 2022 for his venous insufficiency. Principal Diagnosis Acute pancreatitis mild Discharge Exam seen at 10:30 AM and then again around 4 PM after lunch. He had tolerated lunch well. He has been ambulating. No nausea/vomiting or abdominal pain. Has no baseline dyspnea on exertion. And neck moist tongue Chest clear to auscultation Extremities no edema Abdomen obese, distended nontender Discharge Data Allergies Allergy/AdvReac Type Severity Reaction Status Date / Time No Known Allergies Allergy Verified 08/14/22 13:34 Consultations 08/14/22 20:39 ED Decision to Admit Stat Ordered Studies 08/14/22 17:32 US abdomen limited Stat Hospital Course (1) Acute pancreatitis: 67 yo male PMHx DM2, HTN, venous insufficiency of lower extremities, COPD, HLD, AAA s/p stent presents with 2 weeks of abdominal pain. #Acute Pancreatitis -presented with 2 weeks waxing/waning abd discomfort. Sent here by PCP with findings of acute pancreatitis on CT imaging. -Etiology unclear at this time. Suspect possible gallbladder pancreatitis with findings of cholelithiasis without signs of ductal obstruction/dilation. ?furosemide induced since this was newly prescribed 2 months ago and a known cause of drug induced pancreatitis. Very rare alcohol drinker. -WBC 14. Lipase 190. TGs 223. -Abdominal US: no evidence of acute cholecystitis -CT A/P: mild acute pancreatitis, gallbladder distention with cholelithiasis, no associated upstream atrophy or ductal dilation; as a precautionary measure a one month follow-up CT examination is recommended to exclude the less likely possibility of an underlying lesion -1L bolus in ED. Will cont. NSS @ 150mls/hr. #DM2 Home metformin resumed this /9 Hemoglobin A1c 7.1% #HTN -cont. home irbesartan #Venous insufficiency Home Lasix resumed at discharge #COPD -cont. home spiriva, symbicort Denies dyspnea on exertion with daily activities #HLD -cont. home statin Last lipid profile was in July with triglycerides about 220 #Anxiety/depression -cont. home wellbutrin # Nicotine dependence (2) Venous insufficiency of both lower extremities: (3) Type II diabetes mellitus: (4) COPD (chronic obstructive pulmonary disease): (5) AAA (abdominal aortic aneurysm) without rupture: (6) Hyperlipidemia: (7) Hypertension: Plan As above I spoke with him about smoking cessation. He stated that he was under stress and smokes 2 cigarettes a day. His PCP is aware. Does not want to discuss smoking. Does not drink alcohol at all. No illicit drug use Total Time Total Time Spent Total Time Spent (In Minutes): 45 Discharge Plan Discharge Items Patient Disposition: Home - Self-Care Reason For Visit: ACUTE PANCREATITIS Discharge Diagnosis: Acute pancreatitis Activity: Resume your previous activity Non-emergency contact: Primary Care Provider Call non-emergency contact if: you have any medication questions Follow-up/Referrals: Jose Martin Bourgeois MD [Primary Care Provider] - Diet: Carb Consistent or DM2 and Heart Healthy Addtl Attending Provider Instructions: See your PCP in 1 week to 10 days Pending Studies at Discharge: No Stand-Alone Forms: Smoking Cessation Medications and DC Order Prescriptions: Continued metformin 500 mg tablet extended release 24 hr 500 mg PO .COMPLEX Qty: 270 3RF Rx Instructions: 500 mg PO ; Take one tablet in the morning and then 2 tablets in the evening Symbicort 80-4.5 mcg/actuation HFA aerosol inhaler 2 puff INHALATION BID Qty: 10.2 5RF irbesartan 150 mg tablet 150 mg PO QAM Qty: 90 3RF bupropion HCl 150 mg tablet extended release 24 hr 150 mg PO QAM Qty: 30 5RF atorvastatin 20 mg tablet 20 mg PO HS Qty: 90 3RF tramadol 50 mg tablet See Rx Instructions PO Q6H PRN (Reason: Pain) Qty: 100 3RF Dose Instruction: 1-2 tablets PO Q6H PRN; Rx Instructions: 1-2 tablets PO Q6H PRN; cholecalciferol (vitamin D3) 50 mcg (2,000 unit) tablet 2,000 unit PO QAM aspirin 81 mg Tablet,Delayed Release (Dr/Ec) 81 mg PO QAM furosemide 40 mg tablet 40 mg PO Q OTHER DAY Rx Instructions: today is day to be taken but did not have it potassium chloride 10 mEq capsule, extended release 10 meq PO Q OTHER DAY Rx Instructions: Take every other day on days that lasix is taken. Spiriva with HandiHaler 18 mcg capsule, w/inhalation device 1 cap INH QPM Rx Instructions: puncture 1 cap using device; one dose = 2 inhalations Discharge Orders: Discharge Order (Routine); Ordered 08/16/22 Ordered By: Roc Foss/Other Patient Handouts: Managing Type 2 Diabetes Admission Data Admit Date/Time: 08/14/22 21:39 Attending Provider: Roc Hough Admit Provider: Jad Coffey Primary Care Provider: Jose Martin Bourgeois Other Providers: Danielito Blackwell Coding Level of Care Code D/C DAY MANAGEMENT >30 MINS Diagnoses Acute pancreatitis K85.90 Acute pancreatitis complication: unspecified Pancreatitis type: unspecified pancreatitis type Venous insufficiency of both lower extremities I87.2 Type II diabetes mellitus E11.9 COPD (chronic obstructive pulmonary disease) J44.9 AAA (abdominal aortic aneurysm) without rupture I71.4 Hyperlipidemia E78.5 Hypertension I10
== END 2022-08-16 18:22 | disposition home or self-care (01) ==
LOC: 3N 17:15 → ED 17:15 → SUATTDRO 21:39 → 3N 22:56

== ENCOUNTER 2023-01-23 20:42 | Inpatient (IN) ==
[2023-01-23] MEDS ORDERED: NITROGLYCERIN 2% OINTMENT 30GM TUBE EXT STA (21:02)
[2023-01-23] MEDS ORDERED: ALBUT/IPRATROP 3MG/0.5MG NEB 3 ML VIAL NEB STA (21:02)
[2023-01-23] MEDS ORDERED: CEFEPIME 2,000 MG/20 ML VIAL IV STA (21:02)
[2023-01-23] MEDS ORDERED: FUROSEMIDE 40 MG/4 ML VIAL IV ONE (21:02)
[2023-01-23] MEDS ORDERED: methylPREDNISolone 125 MG/2 ML VIAL IV STA (21:07)
--- NOTE | 2023-01-23 21:07 | Emergency Department Note ---
Impression & Plan Hypoxia, CHF (congestive heart failure), SOB (shortness of breath), Edema, Hypomagnesemia, Hypocalcemia ED Provider Note NAME: MERCEDES FARMER AGE: 67 SEX: M : 1955 ARRIVES VIA: Walk-In INFORMANT: [Patient] ED PROVIDER(S): [Dilip Manjarrez MD] CHIEF COMPLAINT: Short of breath HISTORY OF PRESENT ILLNESS: The patient is a 67-year-old male with COPD. He does not wear oxygen. The patient states that he had the flu a few weeks ago and seemed to recover. In the last week, he has noticed some increasing shortness of breath with exertion and even at rest. His legs are more swollen and now his abdomen is swollen. He has not really been coughing more. There has been no fever. The patient is taking his medications as prescribed. The patient states that this is the worst swelling he has ever had to his legs. He states he has never had abdominal swelling. The patient was wondering if he might have pneumonia. PMHx/PSHx: See Below SOCIAL HISTORY: See Below. PHYSICAL EXAM: GENERAL: Patient is in moderate respiratory distress. HEENT: No acute trauma, normocephalic atraumatic, mucous membranes moist, no nasal congestion. NECK: No stridor, no adenopathy, no meningismus, trachea is midline. LUNGS: Moderate respiratory distress, increased respiratory rate, speaks in short sentences. Markedly diminished breath sounds bilaterally with some crackles and wheeze bilaterally. HEART: Distant heart tones, mildly tachycardic, no obvious murmur. Regular rhythm. ABDOMEN: Soft, nontender, bowel sounds positive, no peritonitis. There is some abdominal wall edema seen. EXTREMITIES: No cyanosis. Marked bilateral pedal edema with some bilateral lower leg erythema/warmth. No drainage. NEUROLOGIC: Oriented x 3, no acute motor or sensory deficits, no focal weakness. SKIN: No jaundice, no diaphoresis. DIFFERENTIAL DIAGNOSIS: CHF, pneumonia, bronchitis, exacerbation of COPD, fluid overload, renal failure, anemia, RI, cellulitis, bacteremia, among others. EMERGENCY DEPARTMENT COURSE/PROCEDURES: Prior/Outside records reviewed: None. ECG per my interpretation: Indication was shortness of breath. The ECG shows what appears to be a sinus tachycardia with significant baseline artifact. The rate is 103. There is an incomplete right bundle branch block. No obvious ST elevation, no PVCs. The QTc is 429. Compared to an ECG from 23 August 2015, significant changes have occurred. Continuous Cardiac Monitoring per my interpretation: An order was placed for continuous cardiac monitoring. The monitor shows a rate of 102 with sinus tachycardia. Critical Care Note: I have personally spent 55 minutes of critical care time in the direct management of this patient. This includes bedside care, interpretation of diagnostic studies, and testing, discussion with consultants, patient, and family members, and other required patient management activities. This 55 minutes is in excess of all separately billable procedures. MEDICAL DECISION MAKING: There is no leukocytosis. No anemia. Platelet count was normal at 278. INR slightly high at 1.2. No renal failure. Lactic acid level was not elevated making severe sepsis less likely. Calcium and magnesium were both quite low. No worrisome liver enzyme elevation. BNP was elevated consistent with CHF and fluid overload. Chest x-ray per my review does show CHF. No pneumothorax or pneumonia. ECG shows significant artifact but the rhythm appears to be sinus. Cardiac enzyme testing x1 is not consistent with acute cardiac injury. Urinalysis does not show infection. Respiratory bio fire was completely negative. On exam, the patient appeared quite short of breath. He had diminished breath sounds. There was marked bilateral pedal edema and some abdominal edema. The patient was aggressively managed. He was given nitroglycerin paste, IV So keturah-Medrol, IV Lasix. He received IV cefepime. He was given a DuoNeb. He received IV calcium and IV magnesium. The patient is improved, he seems more comfortable. He is in need of a hospital stay given his findings. I spoke with the patient and his family, I spoke with case management, the on-c all hospitalist was consulted. In short, the dyspnea seems primarily to be secondary to CHF and fluid overload. I do think the fluid has flared his COPD. DISPOSITION: The patient's presentation and findings warrant a hospital stay. 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 GALLARDO Tubular adenoma of colon Type II diabetes mellitus Surgical History History of appendectomy History of bowel resection APPROX 20 yr ago History of cataract surgery Bilateral History of colonoscopy History of open reduction and internal fixation (ORIF) procedure left ankle History of tooth extraction Hx of total adrenalectomy left S/P AAA repair 2016 Family History Aunt Ovarian cancer Mother Diabetes Hypertension Father Diabetes Hypertension Denies family history of Prostate cancer Myocardial infarction Breast cancer Colorectal cancer Social History Smoking Status: Former smoker Second Hand Exposure: No; Do You Dip or Chew Tobacco: No; Hx Alcohol Use: No Hx Substance Use: No Preferred Language: Macedonian Communication Ability: Effective Visual Impairment: No Limitations 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 Beliefs That Will Affect Care: None marital status: Current Living Situation: Spouse Feels Safe at Home: Yes Diet: regular caffeine: Yes Seatbelt Use: always Sunscreen Use: No Assistive Devices: None Allergies Allergies Allergy/AdvReac Type Severity Reaction Status Date / Time No Known Allergies Allergy Verified 01/23/23 22:15 Home Meds Home Medications Medication Instructions Recorded Confirmed cholecalciferol (vitamin D3) 50 2,000 unit PO QAM 12/23/19 01/23/23 mcg (2,000 unit) tablet aspirin 81 mg tablet,delayed 81 mg PO QAM 01/08/21 01/23/23 release furosemide 40 mg tablet 40 mg PO Q OTHER DAY 08/14/22 01/23/23 potassium chloride 10 mEq 10 meq PO Q OTHER DAY 08/14/22 01/23/23 capsule,extended release tramadol 50 mg tablet 50 - 100 mg PO Q6H PRN Pain 01/23/23 01/23/23 Previous Rx's Medication Instructions Recorded irbesartan 150 mg tablet 150 mg PO QAM #90 tabs 04/05/22 atorvastatin 20 mg tablet 20 mg PO HS #90 tabs 06/10/22 fluticasone fur. 200 mcg-umeclid 1 inh inhalation DAILY #1 inhaler 10/21/22 62.5 mcg-vilant 25 mcg inhalat.powder (Trelegy Ellipta) metformin 500 mg tablet,extended 500 mg PO .COMPLEX #270 tabs 11/11/22 release 24 hr bupropion HCl 150 mg 24 hr tablet, 150 mg PO QAM #30 tabs 11/12/22 extended release empagliflozin 10 mg tablet 10 mg PO DAILY #30 tabs 11/19/22 (Jardiance) Results & Data (ED) Vital Signs Vital Signs - 24 hr 01/23/23 20:45 01/23/23 21:06 01/23/23 21:21 Temperature 36.7 C Temperature Source Temporal Artery Scan Pulse Rate 112 H 101 H Pulse Rate from SpO2 Sensor Respiratory Rate 22 Respiratory Effort / Characteristics Non-Labored Spontaneous Respiratory Depth Normal Respiratory Pattern Blood Pressure 128/75 Blood Pressure Mean 92 Blood Pressure Position Sitting Pulse Oximetry 73 L 95 Oxygen Delivery Method Room Air Oxymask Oxygen Flow Rate 6 Sepsis Recent Fever Within 48 Hours No Sepsis New/Unexplained Change in Mental Status No Sepsis Action Taken by Nursing Physician Notified 01/23/23 21:02 01/23/23 21:02 01/23/23 21:04 Temperature Temperature Source Pulse Rate 102 H Pulse Rate from SpO2 Sensor 102 H Respiratory Rate 30 H Respiratory Effort / Characteristics Accessory Muscle Use Labored Short of Breath Respiratory Depth Respiratory Pattern Tachypnea Blood Pressure Blood Pressure Mean Blood Pressure Position Pulse Oximetry 96 Oxygen Delivery Method Room Air Nasal Cannula Oxymask Oxygen Flow Rate 6 Sepsis Recent Fever Within 48 Hours Sepsis New/Unexplained Change in Mental Status Sepsis Action Taken by Nursing 01/23/23 21:11 01/23/23 21:11 01/23/23 21:15 Temperature Temperature Source Pulse Rate 101 H Pulse Rate from SpO2 Sensor 101 H Respiratory Rate 25 H Respiratory Effort / Characteristics Respiratory Depth Respiratory Pattern Blood Pressure 107/82 122/72 Blood Pressure Mean 90 88 Blood Pressure Position Pulse Oximetry 97 Oxygen Delivery Method Oxygen Flow Rate Sepsis Recent Fever Within 48 Hours Sepsis New/Unexplained Change in Mental Status Sepsis Action Taken by Nursing 01/23/23 21:15 01/23/23 21:30 01/23/23 21:30 Temperature Temperature Source Pulse Rate 108 H 91 H Pulse Rate from SpO2 Sensor 100 H 92 H Respiratory Rate 25 H 25 H Respiratory Effort / Characteristics Respiratory Depth Respiratory Pattern Blood Pressure 114/73 Blood Pressure Mean 86 Blood Pressure Position Pulse Oximetry 96 97 Oxygen Delivery Method Oxygen Flow Rate Sepsis Recent Fever Within 48 Hours Sepsis New/Unexplained Change in Mental Status Sepsis Action Taken by Nursing 01/23/23 21:45 01/23/23 21:45 01/23/23 22:00 Temperature Temperature Source Pulse Rate 88 Pulse Rate from SpO2 Sensor 91 H Respiratory Rate 17 Respiratory Effort / Characteristics Respiratory Depth Respiratory Pattern Blood Pressure 114/73 114/74 Blood Pressure Mean 86 87 Blood Pressure Position Pulse Oximetry 96 Oxygen Delivery Method Oxygen Flow Rate Sepsis Recent Fever Within 48 Hours Sepsis New/Unexplained Change in Mental Status Sepsis Action Taken by Nursing 01/23/23 22:00 01/23/23 22:15 01/23/23 22:15 Temperature Temperature Source Pulse Rate 93 H 86 Pulse Rate from SpO2 Sensor 93 H 87 Respiratory Rate 26 H 21 Respiratory Effort / Characteristics Respiratory Depth Respiratory Pattern Blood Pressure 121/72 Blood Pressure Mean 88 Blood Pressure Position Pulse Oximetry 96 96 Oxygen Delivery Method Oxygen Flow Rate Sepsis Recent Fever Within 48 Hours Sepsis New/Unexplained Change in Mental Status Sepsis Action Taken by Nursing 01/23/23 22:30 01/23/23 22:30 01/23/23 22:45 Temperature Temperature Source Pulse Rate 85 Pulse Rate from SpO2 Sensor 86 Respiratory Rate 19 Respiratory Effort / Characteristics Respiratory Depth Respiratory Pattern Blood Pressure 115/69 131/84 Blood Pressure Mean 84 99 Blood Pressure Position Pulse Oximetry 96 Oxygen Delivery Method Oxygen Flow Rate Sepsis Recent Fever Within 48 Hours Sepsis New/Unexplained Change in Mental Status Sepsis Action Taken by Nursing 01/23/23 22:45 01/23/23 23:00 01/23/23 23:00 Temperature Temperature Source Pulse Rate 86 89 Pulse Rate from SpO2 Sensor 86 86 Respiratory Rate 22 27 H Respiratory Effort / Characteristics Respiratory Depth Respiratory Pattern Blood Pressure 133/75 Blood Pressure Mean 94 Blood Pressure Position Pulse Oximetry 92 98 Oxygen Delivery Method Oxygen Flow Rate Sepsis Recent Fever Within 48 Hours Sepsis New/Unexplained Change in Mental Status Sepsis Action Taken by Nursing 01/23/23 23:15 01/23/23 23:15 01/23/23 23:30 Temperature Temperature Source Pulse Rate 92 H Pulse Rate from SpO2 Sensor 90 Respiratory Rate 23 Respiratory Effort / Characteristics Respiratory Depth Respiratory Pattern Blood Pressure 128/82 145/96 H Blood Pressure Mean 97 112 Blood Pressure Position Pulse Oximetry 93 Oxygen Delivery Method Oxygen Flow Rate Sepsis Recent Fever Within 48 Hours Sepsis New/Unexplained Change in Mental Status Sepsis Action Taken by Nursing 01/23/23 23:30 01/23/23 23:45 01/23/23 23:45 Temperature Temperature Source Pulse Rate 97 H 88 Pulse Rate from SpO2 Sensor 93 H 93 H Respiratory Rate 22 23 Respiratory Effort / Characteristics Respiratory Depth Respiratory Pattern Blood Pressure 126/79 Blood Pressure Mean 94 Blood Pressure Position Pulse Oximetry 93 90 Oxygen Delivery Method Oxygen Flow Rate Sepsis Recent Fever Within 48 Hours Sepsis New/Unexplained Change in Mental Status Sepsis Action Taken by Nursing 01/24/23 00:00 01/24/23 00:00 Temperature Temperature Source Pulse Rate 97 H Pulse Rate from SpO2 Sensor 97 H Respiratory Rate 25 H Respiratory Effort / Characteristics Respiratory Depth Respiratory Pattern Blood Pressure 142/88 H Blood Pressure Mean 106 Blood Pressure Position Pulse Oximetry 92 Oxygen Delivery Method Oxygen Flow Rate Sepsis Recent Fever Within 48 Hours Sepsis New/Unexplained Change in Mental Status Sepsis Action Taken by Care Home Medications Current Medication List: was personally reviewed by me Laboratory Data Attestation: I reviewed the patient's lab results. 01/23/23 21:10 01/23/23 22:30 Lab Results 01/23/23 01/23/23 01/23/23 Range/Units 21:10 21:10 21:10 WBC 8.97 (4.8-10.8) K/ul RBC 6.06 (4.70-6.10) M/uL Hgb 17.5 (14.0-18.0) g/dl POC Hgb (14.0-18.0) g/dl Hct 57.8 H (42.0-52.0) % POC Hct (42-52) % MCV 95.4 (80.0-100.0) fL MCH 28.9 (25.0-34.0) pg MCHC 30.3 L (32.0-36.0) g/dL RDW Std Deviation 53.3 H (36.4-46.3) fL RDW Coeff of Brooks 15.7 H (11.5-14.5) % Plt Count 278 (130-400) K/uL MPV 9.6 (9.4-12.4) fL Immature Gran % (Auto) 0.2 % Neut % (Auto) 80.8 % Lymph % (Auto) 8.9 % [place] % (Auto) 9.4 % Eos % (Auto) 0.4 % Baso % (Auto) 0.3 % Neut # (Auto) 7.24 H (1.40-6.50) K/uL Lymph # (Auto) 0.80 L (1.2-3.4) K/uL [place] # (Auto) 0.84 H (0.11-0.59) K/uL Eos # (Auto) 0.04 (0-0.50) K/uL Baso # (Auto) 0.03 (0-0.2) K/uL Immature Gran # (Auto) 0.02 (0.01-0.20) K/uL PT INR APTT PTT Ratio POC Sodium (135-144) mmol/L Sodium Cancelled POC Potassium (3.3-5.0) mmol/L Potassium Cancelled POC Chloride (101-112) mmol/L Chloride Cancelled Carbon Dioxide Cancelled POC Total CO2 (24-31) mmol/L Anion Gap Cancelled POC Anion Gap (16-25) mmol/L POC BUN (7-18) mg/dl BUN Cancelled Creatinine Cancelled POC Creatinine (0.6-1.3) mg/dl Est Cr Clr Drug Dosing Cancelled Est GFR ( Amer) Cancelled Est GFR (Non-Af Amer) Cancelled BUN/Creatinine Ratio Cancelled Glucose Cancelled POC Glucose (other) (70-99) mg/dl Lactate (0.4-2.0) mmol/L Calcium Cancelled POC Ioniz Calcium Sasha (1.12-1.32) mmol/l Magnesium Cancelled Total Bilirubin Cancelled AST Cancelled ALT Cancelled Alkaline Phosphatase Cancelled Troponin I High Sens Cancelled B-Natriuretic Peptide 644 H (0-100) pg/ml Total Protein Cancelled Albumin Cancelled Globulin Cancelled Albumin/Globulin Ratio Cancelled Urine Color Urine Appearance (Clear) Urine pH (4.5-7.5) Ur Specific [place] (1.000-1.030) Urine Protein (Negative) Urine Glucose (UA) (Negative) Urine Ketones (Negative) Urine Blood (Negative) Urine Nitrite (Negative) Urine Bilirubin (Negative) Urine Urobilinogen (Negative) Ur Leukocyte Esterase (Negative) Urine WBC (Auto) (0-5) /hpf Urine RBC (Auto) (0-4) /hpf U Hyaline Cast (Auto) (0-5) /lpf U Epithel Cells (Auto) (0-5) /lpf Urine Bacteria (Auto) (Negative) Adenovirus (PCR) (NotDetected) B. pertussis DNA (PCR) (NotDetected) B.parapertussis DNA PCR (NotDetected) C. pneumoniae DNA (PCR) (NotDetected) Coronavirus OC43 (PCR) (NotDetected) Coronavirus HKU1 (PCR) (NotDetected) Coronavirus 229E (PCR) (NotDetected) SARS-CoV-2 (PCR) (NotDetected) Coronavirus NL63 (PCR) (NotDetected) Human Metapneumovir PCR (NotDetected) Influenza Type A (PCR) (NotDetected) Influenza Type B (PCR) (NotDetected) M. pneumoniae (PCR) (NotDetected) Parainfluenza 1 (PCR) (NotDetected) Parainfluenza 2 (PCR) (NotDetected) Parainfluenza 3 (PCR) (NotDetected) Parainfluenza 4 (PCR) (NotDetected) RSV (PCR) (NotDetected) Entero/Rhino (PCR) (NotDetected) 01/23/23 01/23/23 01/23/23 Range/Units 21:10 21:10 21:11 WBC (4.8-10.8) K/ul RBC (4.70-6.10) M/uL Hgb (14.0-18.0) g/dl POC Hgb (14.0-18.0) g/dl Hct (42.0-52.0) % POC Hct (42-52) % MCV (80.0-100.0) fL MCH (25.0-34.0) pg MCHC (32.0-36.0) g/dL RDW Std Deviation (36.4-46.3) fL RDW Coeff of Brooks (11.5-14.5) % Plt Count (130-400) K/uL MPV (9.4-12.4) fL Immature Gran % (Auto) % Neut % (Auto) % Lymph % (Auto) % [place] % (Auto) % Eos % (Auto) % Baso % (Auto) % Neut # (Auto) (1.40-6.50) K/uL Lymph # (Auto) (1.2-3.4) K/uL [place] # (Auto) (0.11-0.59) K/uL Eos # (Auto) (0-0.50) K/uL Baso # (Auto) (0-0.2) K/uL Immature Gran # (Auto) (0.01-0.20) K/uL PT Cancelled INR Cancelled APTT Cancelled PTT Ratio Cancelled POC Sodium (135-144) mmol/L Sodium POC Potassium (3.3-5.0) mmol/L Potassium POC Chloride (101-112) mmol/L Chloride Carbon Dioxide POC Total CO2 (24-31) mmol/L Anion Gap POC Anion Gap (16-25) mmol/L POC BUN (7-18) mg/dl BUN Creatinine POC Creatinine (0.6-1.3) mg/dl Est Cr Clr Drug Dosing Est GFR ( Amer) Est GFR (Non-Af Amer) BUN/Creatinine Ratio Glucose POC Glucose (other) (70-99) mg/dl Lactate 1.9 (0.4-2.0) mmol/L Calcium POC Ioniz Calcium Sasha (1.12-1.32) mmol/l Magnesium Total Bilirubin AST ALT Alkaline Phosphatase Troponin I High Sens B-Natriuretic Peptide (0-100) pg/ml Total Protein Albumin Globulin Albumin/Globulin Ratio Urine Color Urine Appearance (Clear) Urine pH (4.5-7.5) Ur Specific [place] (1.000-1.030) Urine Protein (Negative) Urine Glucose (UA) (Negative) Urine Ketones (Negative) Urine Blood (Negative) Urine Nitrite (Negative) Urine Bilirubin (Negative) Urine Urobilinogen (Negative) Ur Leukocyte Esterase (Negative) Urine WBC (Auto) (0-5) /hpf Urine RBC (Auto) (0-4) /hpf U Hyaline Cast (Auto) (0-5) /lpf U Epithel Cells (Auto) (0-5) /lpf Urine Bacteria (Auto) (Negative) Adenovirus (PCR) Not Detected (NotDetected) B. pertussis DNA (PCR) Not Detected (NotDetected) B.parapertussis DNA PCR Not Detected (NotDetected) C. pneumoniae DNA (PCR) Not Detected (NotDetected) Coronavirus OC43 (PCR) Not Detected (NotDetected) Coronavirus HKU1 (PCR) Not Detected (NotDetected) Coronavirus 229E (PCR) Not Detected (NotDetected) SARS-CoV-2 (PCR) Not Detected (NotDetected) Coronavirus NL63 (PCR) Not Detected (NotDetected) Human Metapneumovir PCR Not Detected (NotDetected) Influenza Type A (PCR) Not Detected (NotDetected) Influenza Type B (PCR) Not Detected (NotDetected) M. pneumoniae (PCR) Not Detected (NotDetected) Parainfluenza 1 (PCR) Not Detected (NotDetected) Parainfluenza 2 (PCR) Not Detected (NotDetected) Parainfluenza 3 (PCR) Not Detected (NotDetected) Parainfluenza 4 (PCR) Not Detected (NotDetected) RSV (PCR) Not Detected (NotDetected) Entero/Rhino (PCR) Not Detected (NotDetected) 01/23/23 01/23/23 01/23/23 Range/Units 22:30 22:45 23:01 WBC (4.8-10.8) K/ul RBC (4.70-6.10) M/uL Hgb (14.0-18.0) g/dl POC Hgb 19.4 H (14.0-18.0) g/dl Hct (42.0-52.0) % POC Hct 57 H (42-52) % MCV (80.0-100.0) fL MCH (25.0-34.0) pg MCHC (32.0-36.0) g/dL RDW Std Deviation (36.4-46.3) fL RDW Coeff of Brooks (11.5-14.5) % Plt Count (130-400) K/uL MPV (9.4-12.4) fL Immature Gran % (Auto) % Neut % (Auto) % Lymph % (Auto) % [place] % (Auto) % Eos % (Auto) % Baso % (Auto) % Neut # (Auto) (1.40-6.50) K/uL Lymph # (Auto) (1.2-3.4) K/uL [place] # (Auto) (0.11-0.59) K/uL Eos # (Auto) (0-0.50) K/uL Baso # (Auto) (0-0.2) K/uL Immature Gran # (Auto) (0.01-0.20) K/uL PT INR APTT PTT Ratio POC Sodium 137 (135-144) mmol/L Sodium 142 POC Potassium 4.8 (3.3-5.0) mmol/L Potassium 3.0 L POC Chloride 98 L (101-112) mmol/L Chloride 115 H Carbon Dioxide 25 POC Total CO2 30 (24-31) mmol/L Anion Gap 2 L POC Anion Gap 15.0 L (16-25) mmol/L POC BUN 30 H (7-18) mg/dl BUN 23 Creatinine 0.66 POC Creatinine 1.1 (0.6-1.3) mg/dl Est Cr Clr Drug Dosing Not Reportable Est GFR ( Amer) 117.6 Est GFR (Non-Af Amer) 101.5 BUN/Creatinine Ratio 34.8 H Glucose 76 POC Glucose (other) 102 H (70-99) mg/dl Lactate (0.4-2.0) mmol/L Calcium 5.0 L* POC Ioniz Calcium Sasha 1.12 (1.12-1.32) mmol/l Magnesium 0.9 L* Total Bilirubin 0.5 AST 12 L ALT 12 Alkaline Phosphatase 54 Troponin I High Sens 7.8 B-Natriuretic Peptide (0-100) pg/ml Total Protein 3.4 L Albumin 1.9 L Globulin 1.5 L Albumin/Globulin Ratio 1.3 Urine Color Yellow Urine Appearance Clear (Clear) Urine pH 5.5 (4.5-7.5) Ur Specific [place] 1.016 (1.000-1.030) Urine Protein 1+ H (Negative) Urine Glucose (UA) Negative (Negative) Urine Ketones Negative (Negative) Urine Blood Negative (Negative) Urine Nitrite Negative (Negative) Urine Bilirubin Negative (Negative) Urine Urobilinogen Negative (Negative) Ur Leukocyte Esterase 1+ H (Negative) Urine WBC (Auto) 5-10 H (0-5) /hpf Urine RBC (Auto) 0-4 (0-4) /hpf U Hyaline Cast (Auto) 1-5 (0-5) /lpf U Epithel Cells (Auto) 5-10 H (0-5) /lpf Urine Bacteria (Auto) Negative (Negative) Adenovirus (PCR) (NotDetected) B. pertussis DNA (PCR) (NotDetected) B.parapertussis DNA PCR (NotDetected) C. pneumoniae DNA (PCR) (NotDetected) Coronavirus OC43 (PCR) (NotDetected) Coronavirus HKU1 (PCR) (NotDetected) Coronavirus 229E (PCR) (NotDetected) SARS-CoV-2 (PCR) (NotDetected) Coronavirus NL63 (PCR) (NotDetected) Human Metapneumovir PCR (NotDetected) Influenza Type A (PCR) (NotDetected) Influenza Type B (PCR) (NotDetected) M. pneumoniae (PCR) (NotDetected) Parainfluenza 1 (PCR) (NotDetected) Parainfluenza 2 (PCR) (NotDetected) Parainfluenza 3 (PCR) (NotDetected) Parainfluenza 4 (PCR) (NotDetected) RSV (PCR) (NotDetected) Entero/Rhino (PCR) (NotDetected) 01/23/23 Range/Units 23:06 WBC (4.8-10.8) K/ul RBC (4.70-6.10) M/uL Hgb (14.0-18.0) g/dl POC Hgb (14.0-18.0) g/dl Hct (42.0-52.0) % POC Hct (42-52) % MCV (80.0-100.0) fL MCH (25.0-34.0) pg MCHC (32.0-36.0) g/dL RDW Std Deviation (36.4-46.3) fL RDW Coeff of Brooks (11.5-14.5) % Plt Count (130-400) K/uL MPV (9.4-12.4) fL Immature Gran % (Auto) % Neut % (Auto) % Lymph % (Auto) % [place] % (Auto) % Eos % (Auto) % Baso % (Auto) % Neut # (Auto) (1.40-6.50) K/uL Lymph # (Auto) (1.2-3.4) K/uL [place] # (Auto) (0.11-0.59) K/uL Eos # (Auto) (0-0.50) K/uL Baso # (Auto) (0-0.2) K/uL Immature Gran # (Auto) (0.01-0.20) K/uL PT 13.2 H INR 1.2 H APTT 27.9 PTT Ratio 1.0 POC Sodium (135-144) mmol/L Sodium POC Potassium (3.3-5.0) mmol/L Potassium POC Chloride (101-112) mmol/L Chloride Carbon Dioxide POC Total CO2 (24-31) mmol/L Anion Gap POC Anion Gap (16-25) mmol/L POC BUN (7-18) mg/dl BUN Creatinine POC Creatinine (0.6-1.3) mg/dl Est Cr Clr Drug Dosing Est GFR ( Amer) Est GFR (Non-Af Amer) BUN/Creatinine Ratio Glucose POC Glucose (other) (70-99) mg/dl Lactate (0.4-2.0) mmol/L Calcium POC Ioniz Calcium Sasha (1.12-1.32) mmol/l Magnesium Total Bilirubin AST ALT Alkaline Phosphatase Troponin I High Sens B-Natriuretic Peptide (0-100) pg/ml Total Protein Albumin Globulin Albumin/Globulin Ratio Urine Color Urine Appearance (Clear) Urine pH (4.5-7.5) Ur Specific [place] (1.000-1.030) Urine Protein (Negative) Urine Glucose (UA) (Negative) Urine Ketones (Negative) Urine Blood (Negative) Urine Nitrite (Negative) Urine Bilirubin (Negative) Urine Urobilinogen (Negative) Ur Leukocyte Esterase (Negative) Urine WBC (Auto) (0-5) /hpf Urine RBC (Auto) (0-4) /hpf U Hyaline Cast (Auto) (0-5) /lpf U Epithel Cells (Auto) (0-5) /lpf Urine Bacteria (Auto) (Negative) Adenovirus (PCR) (NotDetected) B. pertussis DNA (PCR) (NotDetected) B.parapertussis DNA PCR (NotDetected) C. pneumoniae DNA (PCR) (NotDetected) Coronavirus OC43 (PCR) (NotDetected) Coronavirus HKU1 (PCR) (NotDetected) Coronavirus 229E (PCR) (NotDetected) SARS-CoV-2 (PCR) (NotDetected) Coronavirus NL63 (PCR) (NotDetected) Human Metapneumovir PCR (NotDetected) Influenza Type A (PCR) (NotDetected) Influenza Type B (PCR) (NotDetected) M. pneumoniae (PCR) (NotDetected) Parainfluenza 1 (PCR) (NotDetected) Parainfluenza 2 (PCR) (NotDetected) Parainfluenza 3 (PCR) (NotDetected) Parainfluenza 4 (PCR) (NotDetected) RSV (PCR) (NotDetected) Entero/Rhino (PCR) (NotDetected) Administered Medications Magnesium Sulfate/Dextrose (Magnesium Sulfate / D5w) 1 gm in 100 mls @ 100 mls/hr IV Q1H ORALIA Stop: 01/24/23 01:36 Last Admin: 01/23/23 23:51 Dose: 100 mls/hr Documented By: ISADORA Discontinued Medications Albuterol (Albut/Ipratrop 3mg/0.5mg Neb 3 Ml Vial) 3 ml NEB NOW STA; Protocol Stop: 01/23/23 21:03 Last Admin: 01/23/23 21:15 Dose: 3 ml Documented By: ISADORA Furosemide (Furosemide 40 Mg/4 Ml Vial) 40 mg IV ONE ONE Stop: 01/23/23 21:03 Last Admin: 01/23/23 22:48 Dose: 40 mg Documented By: ISADORA Cefepime HCl (Maxipime) 2,000 mg in 20 mls @ 5 mls/min IV NOW STA; Protocol Stop: 01/23/23 21:05 Last Admin: 01/23/23 21:15 Dose: 5 mls/min Documented By: ISADORA Calcium Gluconate () 1,000 mg in 60 mls @ 240 mls/hr IV NOW STA Stop: 01/23/23 23:50 Last Infusion: 01/24/23 00:07 Dose: 0 mls/hr Documented By: Admin: 01/23/23 23:51 Dose: 240 mls/hr Documented By: ISADORA Methylprednisolone (Methylprednisolone 125 Mg/2 Ml Vial) 60 mg IV NOW STA Stop: 01/23/23 21:08 Last Admin: 01/23/23 21:15 Dose: 60 mg Documented By: ISADORA Nitroglycerin (Nitroglycerin 2% Ointment 30gm Tube) 1 inch EXT NOW STA Stop: 01/23/23 21:03 Last Admin: 01/23/23 21:14 Dose: 1 inch Documented By: ISADORA Imaging Data Attestation: I personally reviewed and interpreted this imaging study as follows: My Impression: Chest x-ray: Per my review, there is CHF. No pneumonia or pneumothorax. Discharge Plan Visit Data Chief Complaint: Shortness of Breath/Dyspnea Stated Complaint: LOW O2,LEGS ARE SWELLING ED Provider: Dilip Manjarrez Discharge Problem: Hypoxia, CHF (congestive heart failure), SOB (shortness of breath), Edema, H ypomagnesemia, Hypocalcemia Patient Disposition: Admitted As Inpatient Condition: Serious Forms Stand Alone Forms: My [facility] Prescriptions Prescriptions: No Action irbesartan 150 mg tablet 150 mg PO QAM Qty: 90 3RF atorvastatin 20 mg tablet 20 mg PO HS Qty: 90 3RF Trelegy Ellipta 200-62.5-25 mcg blister with device 1 inh inhalation DAILY Qty: 1 5RF metformin 500 mg tablet extended release 24 hr 500 mg PO .COMPLEX Qty: 270 3RF Hold Instructions: due to pancreatitis Rx Instructions: 500 mg PO ; Take one tablet in the morning and then 2 tablets in the evening bupropion HCl 150 mg tablet extended release 24 hr 150 mg PO QAM Qty: 30 5RF Jardiance 10 mg tablet 10 mg PO DAILY Qty: 30 5RF Rx Instructions: PER PT "STOPPED TAKING ABOUT A WEEK AGO, ? SIDE EFFECT FROM MED CAUSING LEGS TO SWELL". cholecalciferol (vitamin D3) 50 mcg (2,000 unit) tablet 2,000 unit PO QAM aspirin 81 mg Tablet,Delayed Release (Dr/Ec) 81 mg PO QAM tramadol 50 mg tablet 50 - 100 mg PO Q6H PRN (Reason: Pain) Rx Instructions: 1-2 tablets PO Q6H PRN; furosemide 40 mg tablet 40 mg PO Q OTHER DAY Hold Instructions: due to pancreatitis potassium chloride 10 mEq capsule, extended release 10 meq PO Q OTHER DAY Rx Instructions: Take every other day on days that lasix is taken. Referrals Referrals: Jose Martin Bourgeois MD [Primary Care Provider] -
[2023-01-23 21:40] LABS: Basophils # (auto) 0.03 K/uL (0-0.2); Basophils % (auto) 0.3 %; Eosinophils # (auto) 0.04 K/uL (0-0.50); Eosinophils % (auto) 0.4 %; Hematocrit (blood only) 57.8 % (42.0-52.0); Hemoglobin 17.5 g/dl (14.0-18.0); Immature Granulocytes # (auto) 0.02 K/uL (0.01-0.20); Immature Granulocytes % (auto) 0.2 %; Lymphocytes % (auto) 8.9 %; Mean Corpuscular Hemoglobin 28.9 pg (25.0-34.0); Mean Corpuscular Hgb Conc 30.3 g/dL (32.0-36.0); Mean Corpuscular Volume 95.4 fL (80.0-100.0); Mean Platelet Volume 9.6 fL (9.4-12.4); Monocytes # (auto) 0.84 K/uL (0.11-0.59); Monocytes % (auto) 9.4 %; Neutrophils # (auto) 7.24 K/uL (1.40-6.50); Neutrophils % (auto) 80.8 %; Platelet Count 278 K/uL (130-400); RDW Coefficient of Variation 15.7 % (11.5-14.5); RDW Standard Deviation 53.3 fL (36.4-46.3); Red Blood Count 6.06 M/uL (4.70-6.10); White Blood Count 8.97 K/ul (4.8-10.8)
[2023-01-23 22:31] LABS: Adenovirus PCR Not Detected (NotDetected); Bordetella parapertussis PCR Not Detected (NotDetected); Bordetella pertussis PCR Not Detected (NotDetected); Chlamydia pneumoniae PCR Not Detected (NotDetected); Coronavirus 229E PCR Not Detected (NotDetected); Coronavirus CoV-2 (COVID19)PCR Not Detected (NotDetected); Coronavirus HKU1 PCR Not Detected (NotDetected); Coronavirus NL63 PCR Not Detected (NotDetected); Coronavirus OC43PCR Not Detected (NotDetected); Human Metapneumovirus PCR Not Detected (NotDetected); Influenza A PCR Not Detected (NotDetected); Influenza B PCR Not Detected (NotDetected); Mycoplasma pneumoniae PCR Not Detected (NotDetected); Parainfluenza Virus 1 PCR Not Detected (NotDetected); Parainfluenza Virus 2 PCR Not Detected (NotDetected); Parainfluenza Virus 3 PCR Not Detected (NotDetected); Parainfluenza Virus 4 PCR Not Detected (NotDetected); Respiratory Syncytial VirusPCR Not Detected (NotDetected); Rhinovirus/Enterovirus PCR Not Detected (NotDetected)
[2023-01-23 23:14] LABS: iSTAT Creatinine 1.1 mg/dl (0.6-1.3); iSTAT Hemoglobin 19.4 g/dl (14.0-18.0); iSTAT Ionized Calcium 1.12 mmol/l (1.12-1.32); iSTAT Potassium 4.8 mmol/L (3.3-5.0)
[2023-01-23 23:28] LABS: Appearance Urine Clear (Clear); Bacteria Urine Automated Negative (Negative); Bilirubin Urine Negative (Negative); Blood Urine Negative (Negative); Color Urine Yellow; Glucose Urine UA Negative (Negative); Ketones Urine Negative (Negative); Leukocyte Esterase Urine 1+ (Negative); Nitrite Urine Negative (Negative); Protein Urine 1+ (Negative); RBC Urine Automated 0-4 /hpf (0-4); Specific Gravity Urine 1.016 (1.000-1.030); Urobilinogen Urine Negative (Negative); pH Urine 5.5 (4.5-7.5)
[2023-01-23 23:29] LABS: Alanine Aminotransferase 12 U/L (7-52); Albumin Globulin Ratio 1.3 (0.9-2); Albumin Level 1.9 gm/dl (3.4-5.0); Alkaline Phosphatase 54 U/L (34-104); Anion Gap 2 (3-11); Aspartate Aminotransferase 12 U/L (13-39); BUN Creatinine Ratio 34.8 (10-20); Bilirubin,Total 0.5 mg/dl (0.2-1.0); Blood Urea Nitrogen 23 mg/dl (6-23); Carbon Dioxide 25 mmol/L (21-32); Chloride 115 mmol/L (98-107); Est GFR (African American) 117.6 ml/min; Est GFR (Non-African American) 101.5 ml/min; Globulin 1.5 gm/dl (2.5-4.0); Glucose 76 mg/dl (70-99(Fasting)); Magnesium 0.9 mg/dl (1.7-2.4); Sodium 142 mmol/L (136-145); Total Protein 3.4 gm/dl (6.0-8.3); Troponin I High Sensitivity 7.8 pg/ml (0-20)
[2023-01-23] MEDS ORDERED: CALCIUM GLUCONATE 1,000 MG/60 ML BAG IV STA (23:36)
[2023-01-23 23:51] LABS: INR 1.2 (0.9-1.1); Partial Thromboplastin Time 27.9 Seconds (21.0-31.0); Prothrombin Time 13.2 Seconds (9.0-12.0)
[2023-01-23] MEDS: MAGNESIUM SULFATE / D5W 1 GM/100 ML BAG IV SCH (23:51)
[2023-01-24] MEDS: MAGNESIUM SULFATE / D5W 1 GM/100 ML BAG IV SCH (01:00)
[2023-01-24] MEDS ORDERED: ENOXAPARIN INJ 40 MG/0.4 ML SYR SQ ONE (02:38)
[2023-01-24] MEDS ORDERED: traMADol HCL 50 MG TABLET PO PRN (03:56)
[2023-01-24] MEDS ORDERED: NITROGLYCERIN SL 0.4 MG/TAB TAB SL PRN (03:56)
[2023-01-24] MEDS ORDERED: ALUMINUM/MAGNESIUM SUSP 30 ML UDC PO PRN (03:56)
[2023-01-24] MEDS ORDERED: ACETAMINOPHEN 325 MG TAB PO PRN (03:56)
--- NOTE | 2023-01-24 04:44 | History & Physical Report ---
Date of Service January 24, 2023 Assessment & Plan (1) CHF (congestive heart failure): Plan: Patient presents to ED with complaints of worsening lower extremity edema accompanied by worsening shortness of breath with exertion. Physical examination in the ED shows evidence of volume overload with bilateral lower extremity edema and significant weight gain. proBNP elevated in the ED at 644 Initial troponin not elevated and EKG does not show evidence of acute ischemia. Chest x-ray preliminary report shows evidence of volume overload . Initiate CHF protocol with strict input output monitoring Patient given IV Lasix in the ED to promote diuresis Low-salt diet with close monitoring of input and output check transthoracic echo to assess EF and trend cardiac enzymes Cardiology input and close telemetry monitoring Patient has significant lower extremity with erythema-check Doppler ultrasound bilateral lower extremities to rule out DVT (2) COPD (chronic obstructive pulmonary disease): Plan: Patient presents with acute worsening of exertional dyspnea Patient is underlying history of COPD but has predominant CHF findings with minimal COPD exacerbation findings Continue bronchodilator treatment Patient given IV steroids in ED (3) Hypocalcemia: Plan: Patient found to have significant hypocalcemia with serum calcium level at 5 u maira initial arrival along with low albumin level of 1.9 Patient given IV calcium in the ED and repeat calcium level improved to 9.4 Patient also given magnesium supplement in the ED as well Continue to monitor levels in a.m. (4) Hypomagnesemia: Plan: Patient found to have low magnesium of 0.9 in the ED Patient given IV magnesium for supplementation Recheck levels in a.m. (5) Hypokalemia: Plan: Potassium level upon initial presentation ED was 3 Patient given potassium replacement recheck levels in a.m. With ongoing IV diuretic therapy continue to monitor potassium levels daily (6) Hyperlipidemia: Plan: Continue statin therapy with Lipitor (7) Hypertension: Plan: continue home dose of angiotensin receptor kelsi irbesartan daily Monitor blood pressure trend and titrate meds as tolerated (8) Type II diabetes mellitus: Plan: Patient will be placed on sliding scale coverage with short acting insulin based on fingerstick monitoring Hold oral hypoglycemics while inpatient Check hemoglobin A1c level Admission and Anticipated Discharge Date Admission Date: January 24, 2023 History of Present Illness Chief Complaint: Patient presents to ED with complaints of worsening shortness of breath Primary Care Provider: Jose Martin Bourgeois MD This is a 66-year-old male with past medical history significant for underlying COPD, type 2 diabetes mellitus, hyperlipidemia, hypertension, CHF who presents to the emergency department complaints of worsening shortness of breath over the past week. Patient reports that has been having increasing exertional dyspnea associated with increased swelling in his lower extremities. Patient had reported developing flulike symptoms about 3 to 4 weeks ago and has been recovering subsequent to this. However patient reported that over the last week he developed increasing shortness of breath that worsens with exertion. The lower extremity edema has been involving both his extremities and patient has been having weight gains with fatigue even with minor exertion. The symptoms are worsened over the past 24 hours and hence patient presents to ED for further evaluation. Patient otherwise denies any fevers or chills. No chest pain reported. Patient reports that his lower extremity has been swollen and has been uncomfortable . Patient admits to taking his medications as prescribed. Patient was evaluated in the ED and found to have evidence of bilateral lower extremity edema along with elevated proBNP and was given a dose of IV Lasix along with bronchodilators. Patient being admitted for further management of his acute CHF. Allergies Allergy/AdvReac Type Severity Reaction Status Date / Time No Known Allergies Allergy Verified 01/23/23 22:15 Home Medications Medication Instructions Recorded Confirmed Type cholecalciferol (vitamin D3) 50 2,000 unit PO QAM 12/23/19 01/23/23 History mcg (2,000 unit) tablet aspirin 81 mg tablet,delayed 81 mg PO QAM 01/08/21 01/23/23 History release irbesartan 150 mg tablet 150 mg PO QAM #90 tabs 04/05/22 01/23/23 Rx atorvastatin 20 mg tablet 20 mg PO HS #90 tabs 06/10/22 01/23/23 Rx furosemide 40 mg tablet 40 mg PO Q OTHER DAY 08/14/22 01/23/23 History potassium chloride 10 mEq 10 meq PO Q OTHER DAY 08/14/22 01/23/23 History capsule,extended release fluticasone fur. 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 GALLARDO Tubular adenoma of colon Type II diabetes mellitus Surgical History History of appendectomy History of bowel resection APPROX 20 yr ago History of cataract surgery Bilateral History of colonoscopy History of open reduction and internal fixation (ORIF) procedure left ankle History of tooth extraction Hx of total adrenalectomy left S/P AAA repair 2015 Family History Aunt Ovarian cancer Mother Diabetes Hypertension Father Diabetes Hypertension Denies family history of Prostate cancer Myocardial infarction Breast cancer Colorectal cancer Social History Smoking Status: Current some day smoker Cigarettes Per Day: 1-5; Second Hand Exposure: No; Do You Dip or Chew Tobacco: No; Hx Alcohol Use: No Hx Substance Use: No Preferred Language: Macedonian Communication Ability: Effective Visual Impairment: No Limitations 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 Cardiac-no palpitations, no chest pain, no syncope GI-no nausea, vomiting, diarrhea, melena, hematochezia -no urinary retention, no urinary incontinence, no dysuria, no hematuria Musculoskeletal-no joint pain, no muscle tenderness Skin-no bruising, no rashes, no pruritus Neuro-no isolated weakness, no paresthesia, no weakness Psych-no depression, no anxiety Physical Exam Physical Exam: Head and ENT no thyroid enlargement trachea midline Cardiovascular S1-S2 are normal no S3 Lungs bilateral air entry fair no wheezing Abdomen soft nondistended positive bowel sounds no rebound tenderness Extremity shows 2+ bilateral lower extreme edema extending up to the knee with erythematous changes Neurologically no focal deficits Skin shows no cyanosis Results & Data Results & Data Vital Signs (Past 12 Hours) Vital Signs Temp Pulse Pulse Resp BP BP Pulse Ox 01/24/23 04:09 37 C 99 H 16 145/84 H 92 01/24/23 03:56 37 C 99 H 16 145/84 H 92 01/24/23 03:56 01/24/23 02:45 88 17 94 01/24/23 02:45 123/69 01/24/23 02:30 91 H 16 93 01/24/23 02:30 135/73 01/24/23 02:15 87 19 90 01/24/23 02:15 110/74 01/24/23 02:00 92 H 19 93 01/24/23 02:00 124/71 01/24/23 01:45 89 17 01/24/23 01:45 122/69 01/24/23 01:30 94 H 22 01/24/23 01:30 130/78 01/24/23 01:15 89 19 01/24/23 01:15 122/74 01/24/23 01:00 100 H 24 89 L 01/24/23 01:00 135/91 01/24/23 00:45 93 H 19 91 01/24/23 00:45 125/74 01/24/23 00:30 104 H 17 90 01/24/23 01:04 97 H 01/24/23 00:15 90 23 125/81 93 01/24/23 00:00 97 H 25 H 92 01/24/23 00:00 142/88 H 01/23/23 23:45 88 23 90 01/23/23 23:45 126/79 01/23/23 23:30 97 H 22 93 01/23/23 23:30 145/96 H 01/23/23 23:15 92 H 23 93 01/23/23 23:15 128/82 01/23/23 23:00 89 27 H 98 01/23/23 23:00 133/75 01/23/23 22:45 86 22 92 01/23/23 22:45 131/84 01/23/23 22:30 85 19 96 01/23/23 22:30 115/69 01/23/23 22:15 86 21 96 01/23/23 22:15 121/72 01/23/23 22:00 93 H 26 H 96 01/23/23 22:00 114/74 01/23/23 21:45 88 17 96 01/23/23 21:45 114/73 01/23/23 21:30 91 H 25 H 97 01/23/23 21:30 114/73 01/23/23 21:15 108 H 25 H 96 01/23/23 21:15 122/72 01/23/23 21:11 101 H 25 H 97 01/23/23 21:11 107/82 01/23/23 21:04 102 H 30 H 96 01/23/23 21:02 01/23/23 21:21 95 01/23/23 21:06 101 H 01/23/23 20:45 36.7 C 112 H 22 128/75 73 L Pulse Ox O2 Del Method O2 Del Method O2 Flow Rate O2 Flow Rate 01/24/23 04:09 Oxymask 6 01/24/23 03:56 Nasal Cannula 6 01/24/23 03:56 92 Oxymask 6 01/24/23 02:45 01/24/23 02:45 01/24/23 02:30 01/24/23 02:30 01/24/23 02:15 01/24/23 02:15 01/24/23 02:00 01/24/23 02:00 01/24/23 01:45 01/24/23 01:45 01/24/23 01:30 01/24/23 01:30 01/24/23 01:15 01/24/23 01:15 01/24/23 01:00 01/24/23 01:00 01/24/23 00:45 01/24/23 00:45 01/24/23 00:30 01/24/23 01:04 01/24/23 00:15 01/24/23 00:00 01/24/23 00:00 01/23/23 23:45 01/23/23 23:45 01/23/23 23:30 01/23/23 23:30 01/23/23 23:15 01/23/23 23:15 01/23/23 23:00 01/23/23 23:00 01/23/23 22:45 01/23/23 22:45 01/23/23 22:30 01/23/23 22:30 01/23/23 22:15 01/23/23 22:15 01/23/23 22:00 01/23/23 22:00 01/23/23 21:45 01/23/23 21:45 01/23/23 21:30 01/23/23 21:30 01/23/23 21:15 01/23/23 21:15 01/23/23 21:11 01/23/23 21:11 01/23/23 21:04 01/23/23 21:02 Room Air, Nasal Cannula, Oxymask 6 01/23/23 21:21 Oxymask 6 01/23/23 21:06 01/23/23 20:45 Room Air Laboratory Results Short CBC 01/23/23 Range/Units 21:10 WBC 8.97 (4.8-10.8) K/ul Hgb 17.5 (14.0-18.0) g/dl Hct 57.8 H (42.0-52.0) % Plt Count 278 (130-400) K/uL BMP 01/23/23 01/23/23 21:10 22:30 Sodium Cancelled 142 Potassium Cancelled 3.0 L Chloride Cancelled 115 H Carbon Dioxide Cancelled 25 BUN Cancelled 23 Creatinine Cancelled 0.66 Glucose Cancelled 76 Calcium Cancelled 5.0 L* Liver Function 01/23/23 01/23/23 Range/Units 21:10 22:30 Total Bilirubin Cancelled 0.5 AST Cancelled 12 L ALT Cancelled 12 Alkaline Phosphatase Cancelled 54 Albumin Cancelled 1.9 L Urine 01/23/23 Range/Units 22:45 Urine Color Yellow Urine Appearance Clear (Clear) Urine pH 5.5 (4.5-7.5) Ur Specific [place] 1.016 (1.000-1.030) Urine Protein 1+ H (Negative) Urine Glucose (UA) Negative (Negative) Diagnostic Findings Chest x-ray preliminary report shows evidence of pulmonary vascular congestion Code Status & VTE Plan VTE Prophylaxis Plan VTE Prophylaxis will be ordered: Yes PG Care Time/CCT Total # of Minutes Spent Total Time Spent with Patient: Total time spent is greater than 50% in coordination of care (as documented) at patient's floor/unit and/or counseling patient: Coding Level of Care Code 31947 INT INP/OBS CARE 2MIN Diagnoses CHF (congestive heart failure) I50.9 Heart failure chronicity: acute Heart failure type: unspecified COPD (chronic obstructive pulmonary disease) J44.9 Hypocalcemia E83.51 Hypomagnesemia E83.42 Hypokalemia E87.6 Hyperlipidemia E78.5 Hypertension I10 Type II diabetes mellitus E11.9 (1) CHF (congestive heart failure) Heart failure chronicity: acute Heart failure type: unspecified Qualified Code(s): I50.9 - Heart failure, unspecified
--- NOTE | 2023-01-24 05:07 | Ultrasound Report ---
Exam(s): US VENOUS BILATERAL LOWER EXTREMITIES EXAM: US Duplex Bilateral Lower Extremities Veins CLINICAL HISTORY: Reason for exam: le erythema and swelling. TECHNIQUE: Real-time duplex ultrasound scan of the bilateral lower extremity veins integrating B-mode two-dimensional vascular structure, Doppler spectral analysis, color flow Doppler imaging and compression. COMPARISON: No relevant prior studies available. FINDINGS: Right deep veins: Unremarkable. No DVT in the right common femoral, femoral, proximal deep femoral or popliteal veins. The veins demonstrate normal color flow, are normally compressible, with normal phasic flow and/or augmentation response. Right superficial veins: Unremarkable. No thrombus in the visualized right great saphenous vein. Left deep veins: Unremarkable. No DVT in the left common femoral, femoral, proximal deep femoral or popliteal veins. The veins demonstrate normal color flow, are normally compressible, with normal phasic flow and/or augmentation response. Left superficial veins: Unremarkable. No thrombus in the visualized left great saphenous vein. Soft tissues: No acute findings. No popliteal cyst. IMPRESSION: Normal bilateral lower extremity duplex venous ultrasound. Electronically signed by: Julio Mercer MD 01/24/23 05:06 AM
[2023-01-24] MEDS ORDERED: DEXTROSE 50% 50 ML SYRINGE IV PRN (05:16)
[2023-01-24] MEDS ORDERED: PHARMACY GLYCEMIC MGMT CONSULT PRN (05:16)
[2023-01-24] MEDS ORDERED: CARBOHYDRATES FOR HYPOGLYCEMIA PO PRN (05:16)
[2023-01-24] MEDS ORDERED: GLUCAGON FOR INJ 1 MG VIAL SQ PRN (05:16)
[2023-01-24] MEDS ORDERED: GLUCOSE 10 TAB/TUBE PO PRN (05:16)
[2023-01-24] MEDS ORDERED: GLUCOSE 40% GEL 15 GM TUBE PO PRN (05:16)
[2023-01-24] MEDS: HEPARIN SOD 5,000 UNIT/0.5 ML VIAL SQ SCH ×3 (05:38→20:41)
--- NOTE | 2023-01-24 07:20 | Hospitalist Progress Note ---
Date of Service January 24, 2023 Assessment & Plan (1) CHF (congestive heart failure): Plan: Clinically appears hypervolemic proBNP elevated in the ED at 644 Initial troponin not elevated and EKG does not show evidence of acute ischemia. Chest x-ray preliminary report shows evidence of volume overload . TTE with grade 1 diastolic dysfunction, EF= 55-60% LE Doppler negative for DVT Continue to monitor I/Os Continue Lasix, will reevaluate kidney function tomorrow morning and dose Lasix based on kidney function Cardiology consulted, appreciate recommendations Continue to monitor on telemetry (2) COPD (chronic obstructive pulmonary disease): Plan: Exam consistent with acute exacerbation of COPD Will continue Solu-Medrol at 50mg IV daily Continue with home inhaler regimen (3) Hypocalcemia: Plan: Patient found to have significant hypocalcemia with serum calcium level at 5 upon initial arrival along with low albumin level of 1.9 Patient given IV calcium in the ED and repeat calcium level improved to 9.4 Will continue to trend (4) Hypomagnesemia: Plan: Patient found to have low magnesium of 0.9 in the ED Patient given IV magnesium for supplementation Continue to trend (5) Hypokalemia: Plan: Hypokalemic on presentation Repleted Continue to trend Goal of Mg=2, K= 4 (6) Hyperlipidemia: Plan: Continue statin therapy with Lipitor (7) Hypertension: Plan: continue home dose of angiotensin receptor kelsi irbesartan daily (8) Type II diabetes mellitus: Plan: Hold oral hypoglycemics while inpatient SSI Glycemic Consult, appreciate recommendations Hemoglobin A1c= 7.3 Admission and Anticipated Discharge Date Admission Date: January 24, 2023 Supervising Physician Co-Signing Physician Notes ATTESTATION I also saw the patient and confirmed bridges portions of the history and exam. I agree with the impression and plan in the resident documentation, and as summarized below. Upon our early afternoon exam, the patient is semireclined in bed with family at bedside. He reports little improved ease of breathing this afternoon compared to yesterday. He also notes that his lower extremities are slightly less edematous when compared to yesterday. In talking today, it sounds as if he has had a gradual increase of lower extremity edema over the past 3 weeks or so. He has been on varying doses of Lasix as an outpatient, which sound to have been adjusted due to his renal function. Despite the addition of diuretics, he has gained somewhere around 40 pounds since his admission earlier this year for pancreatitis. In terms of diet, really no changes; salt intake seems about the same. He also has a history of COPD, and he has noted some audible wheezing. EXAM 106/67, 85, 18, 36.5, 94% on OxyMask at 4 L/min He is pleasant and alert. No acute distress. Lungs are tight with diffuse wheezing; limited air exchange Heart is regular Extremities with bilateral pitting edema above the knees; erythema of the bilateral lower extremities, but nontender DATA Labs Hemoglobin 16.8, platelet count 266 Sodium 139, potassium 4.7, BUN 26, creatinine 1.02 Hemoglobin A1c 7.3% Imaging Chest x-ray dated 01/24/2023 shows cardiomegaly with interstitial pulmonary edema, small right and trace left pleural effusions. Lower extremity Dopplers completed 01/24/2023 demonstrate no DVT Micro Blood cultures dated 01/23/2023 show no growth IMPRESSION & PLAN Clear there is in a lot of a COPD exacerbation based on his lung exam. Not quite sure why he is so hypervolemic, disproportionate to what I would expect in looking at his echocardiogram; his edema seems more peripheral than central. COPD, acute exacerbation Lung exam is consistent with acute exacerbation; decreased air movement with wheezing Resume IV steroids Continue home inhaler regimen CHF, lower extremity edema He has had about 40 pound weight gain in a relatively short period of time Echocardiogram completed today shows preserved systolic function, minimal diastolic dysfunction He had 1+ protein on admission urinalysis; 2+ protein on previous urinalysis; creatinine 1.02 Continue diuresis Consult cardiology (they had seen him for similar in outpatient office last month) Additional per resident documentation Subjective Saw Tyree at bedside this morning. Doing well. Improvement in LE edema. Still notes dyspnea, especially with exertion. Review of Systems Review of Systems: As per above Physical Exam Physical Exam: Constitutional: well-appearing, no acute distress HEENT: NCAT, no conjunctival injection CV: regular rhythm, no murmur appreciated, extremities well-perfused, 2+ LE past knees Resp: Diminished breath sounds with diffuse wheezing GI: soft, mildly distended, nontender, BS normoactive MSK: no gross deformities appreciated Skin: warm, dry, no rash appreciated. LE mild erythematous B/L without any open wounds Neuro: alert, oriented, no focal neurologic deficit appreciated Results & Data Results & Data Vital Signs (Past 12 Hours) Vital Signs Temp Pulse Pulse Resp BP BP Pulse Ox 01/24/23 05:08 91 H 01/24/23 03:50 01/24/23 04:09 37 C 99 H 16 145/84 H 92 01/24/23 03:56 37 C 99 H 16 145/84 H 92 01/24/23 03:56 01/24/23 02:45 88 17 94 01/24/23 02:45 123/69 01/24/23 02:30 91 H 16 93 01/24/23 02:30 135/73 01/24/23 02:15 87 19 90 01/24/23 02:15 110/74 01/24/23 02:00 92 H 19 93 01/24/23 02:00 124/71 01/24/23 01:45 89 17 01/24/23 01:45 122/69 01/24/23 01:30 94 H 22 01/24/23 01:30 130/78 01/24/23 01:15 89 19 01/24/23 01:15 122/74 01/24/23 01:00 100 H 24 89 L 01/24/23 01:00 135/91 01/24/23 00:45 93 H 19 91 01/24/23 00:45 125/74 01/24/23 00:30 104 H 17 90 01/24/23 01:04 97 H 01/24/23 00:15 90 23 125/81 93 01/24/23 00:00 97 H 25 H 92 01/24/23 00:00 142/88 H 01/23/23 23:45 88 23 90 01/23/23 23:45 126/79 01/23/23 23:30 97 H 22 93 01/23/23 23:30 145/96 H 01/23/23 23:15 92 H 23 93 01/23/23 23:15 128/82 01/23/23 23:00 89 27 H 98 01/23/23 23:00 133/75 01/23/23 22:45 86 22 92 01/23/23 22:45 131/84 01/23/23 22:30 85 19 96 01/23/23 22:30 115/69 01/23/23 22:15 86 21 96 01/23/23 22:15 121/72 01/23/23 22:00 93 H 26 H 96 01/23/23 22:00 114/74 01/23/23 21:45 88 17 96 01/23/23 21:45 114/73 01/23/23 21:30 91 H 25 H 97 01/23/23 21:30 114/73 01/23/23 21:15 108 H 25 H 96 01/23/23 21:15 122/72 01/23/23 21:11 101 H 25 H 97 01/23/23 21:11 107/82 01/23/23 21:04 102 H 30 H 96 01/23/23 21:02 01/23/23 21:21 95 01/23/23 21:06 101 H 01/23/23 20:45 36.7 C 112 H 22 128/75 73 L Pulse Ox O2 Del Method O2 Del Method O2 Flow Rate O2 Flow Rate 01/24/23 05:08 01/24/23 03:50 Oxymask 6 01/24/23 04:09 Oxymask 6 01/24/23 03:56 Nasal Cannula 6 01/24/23 03:56 92 Oxymask 6 01/24/23 02:45 01/24/23 02:45 01/24/23 02:30 01/24/23 02:30 01/24/23 02:15 01/24/23 02:15 01/24/23 02:00 01/24/23 02:00 01/24/23 01:45 01/24/23 01:45 01/24/23 01:30 01/24/23 01:30 01/24/23 01:15 01/24/23 01:15 01/24/23 01:00 01/24/23 01:00 01/24/23 00:45 01/24/23 00:45 01/24/23 00:30 01/24/23 01:04 01/24/23 00:15 01/24/23 00:00 01/24/23 00:00 01/23/23 23:45 01/23/23 23:45 01/23/23 23:30 01/23/23 23:30 01/23/23 23:15 01/23/23 23:15 01/23/23 23:00 01/23/23 23:00 01/23/23 22:45 01/23/23 22:45 01/23/23 22:30 01/23/23 22:30 01/23/23 22:15 01/23/23 22:15 01/23/23 22:00 01/23/23 22:00 01/23/23 21:45 01/23/23 21:45 01/23/23 21:30 01/23/23 21:30 01/23/23 21:15 01/23/23 21:15 01/23/23 21:11 01/23/23 21:11 01/23/23 21:04 01/23/23 21:02 Room Air, Nasal Cannula, Oxymask 6 01/23/23 21:21 Oxymask 6 01/23/23 21:06 01/23/23 20:45 Room Air Resident Activity Tracking Resident Involvement: Resident Care Provided Care Provided: Adult Hospital Medicine (1) CHF (congestive heart failure) Heart failure chronicity: acute Heart failure type: diastolic Qualified Code(s): I50.31 - Acute diastolic (congestive) heart failure
--- NOTE | 2023-01-24 08:02 | XRay Report ---
XR chest 1V portable CLINICAL HISTORY: Dyspnea. COMPARISON STUDY: Chest CT January 02, 2015. Chest radiograph June 02, 2018. FINDINGS: There is no pneumothorax. Small right and trace left pleural effusions are present. Bibasil ar airspace opacities are noted. There is cardiomegaly with interstitial pulmonary edema. IMPRESSION: 1. Cardiomegaly with interstitial pulmonary edema. 2. Small right and trace left pleural effusions with bibasilar opacities which could reflect pneumoni a or atelectasis. Radiographic follow-up to ensure resolution is recommended. ACT 112: Negative or not required by law. Electronically signed by: Krishan Garcia M.D. 01/24/2023 7:59 AM
[2023-01-24] MEDS: buPROPion XL 150 MG TABCR PO SCH (08:12)
[2023-01-24] MEDS: ASPIRIN 81 MG ECTAB PO SCH (08:12)
[2023-01-24] MEDS: CHOLECALCIFEROL 1,000 UNITS 25 MCG TAB PO SCH (08:13)
[2023-01-24] MEDS: UMECLIDINIUM/VILANTEROL 62.5/25MCG 7 PUFFS/INHALER INH SCH (08:13)
[2023-01-24] MEDS: LOSARTAN POTASSIUM 50 MG TAB PO SCH (08:13)
[2023-01-24] MEDS: FLUTICASONE FUROATE 200MCG 14 PUFFS/INHALER INH SCH (08:13)
[2023-01-24] MEDS: FUROSEMIDE INJ 20 MG/2 ML VIAL IV SCH ×2 (08:14→13:06)
[2023-01-24] MEDS: INSULIN ASPART PER UNIT CHARGE SC SCH ×4 (08:15→20:29)
[2023-01-24] MEDS ORDERED: NON-FORMULARY MEDICATION (Fluticasone-Umeclidin-Vilanter [Trelegy Ellipta] 200-62.5-25 mcg INH SCH (09:00)
[2023-01-24] MEDS ORDERED: IRBESARTAN 150 MG TAB PO SCH (09:00)
[2023-01-24 10:29] LABS: Basophils # (auto) 0.01 K/uL (0-0.2); Basophils % (auto) 0.2 %; Hematocrit (blood only) 54.6 % (42.0-52.0); Hemoglobin 16.8 g/dl (14.0-18.0); Immature Granulocytes # (auto) 0.03 K/uL (0.01-0.20); Immature Granulocytes % (auto) 0.5 %; Lymphocytes # (auto) 0.42 K/uL (1.2-3.4); Lymphocytes % (auto) 6.4 %; Mean Corpuscular Hemoglobin 29.3 pg (25.0-34.0); Mean Corpuscular Hgb Conc 30.8 g/dL (32.0-36.0); Mean Corpuscular Volume 95.1 fL (80.0-100.0); Mean Platelet Volume 9.4 fL (9.4-12.4); Monocytes # (auto) 0.73 K/uL (0.11-0.59); Monocytes % (auto) 11.1 %; Neutrophils # (auto) 5.39 K/uL (1.40-6.50); Neutrophils % (auto) 81.8 %; Platelet Count 266 K/uL (130-400); RDW Coefficient of Variation 15.2 % (11.5-14.5); Red Blood Count 5.74 M/uL (4.70-6.10); White Blood Count 6.58 K/ul (4.8-10.8)
[2023-01-24 10:48] LABS: Estimated Average Glucose 163 mg/dl; Hemoglobin A1C 7.3 % (4.5-5.6)
[2023-01-24 10:53] LABS: Albumin Globulin Ratio 1.3 (0.9-2); Albumin Level 3.6 gm/dl (3.4-5.0); BUN Creatinine Ratio 25.5 (10-20); Bilirubin,Total 0.6 mg/dl (0.2-1.0); Calcium 9.1 mg/dl (8.6-10.3); Creatinine Clr Calc Pharmacy 98.2 ml/min; Est GFR (Non-African American) 76.8 ml/min; Globulin 2.8 gm/dl (2.5-4.0); Magnesium 1.7 mg/dl (1.7-2.4); Potassium 4.7 mmol/L (3.5-5.1); Total Protein 6.4 gm/dl (6.0-8.3); Troponin I High Sensitivity 11.8 pg/ml (0-20)
--- NOTE | 2023-01-24 11:12 | XCELERA ---
[id number]
--- NOTE | 2023-01-24 11:27 | Pharmacy Report ---
Pharmacy Glycemic Short Note 2 - Date of Service January 24, 2023 - Glycemic Short BSG Results (Last 24 hours): 01/23/23 01/23/23 01/23/23 21:10 22:30 23:01 Glucose Cancelled 76 POC Glucose POC Glucose (other) 102 H 01/24/23 01/24/23 01/24/23 03:56 07:35 10:13 Glucose 64 L POC Glucose 115 H 128 H POC Glucose (other) 01/24/23 11:06 Glucose POC Glucose 75 POC Glucose (other) OUTPATIENT ANTIDIABETIC REGIMEN: * Jardiance 10 mg PO daily * Metformin 500 mg PO qAM, 1000 mg PO qPM HbA1c: 7.3% (01/24/23) ASSESSMENT: * DN is a 67 year old male who presented to ED overnight with worsening shortness of breath * Pertinent PMH includes T2DM, CHF, and COPD * Received 60 mg IV Solu-medrol x 1 yesterday, no ongoing steroids at this time * BSGs have been on low-side thus far, received 3 units of insulin at breakfast, which resulted in a lunchtime BSG of 75 mg/dL * Will hold further carb coverage and utilize CF only until upward trend noted PLAN FOR INPATIENT GLYCEMIC CONTROL: * Hold outpatient oral diabetes medications * Basal insulin * hold * Bolus insulin * NovoLog per scale ACHS or Q6hrs while NPO * Goal Range: Low 110 mg/dL - High 140 mg/dL * Correction Factor: 35 mg/dL/unit * Hold carb coverage at this time
[2023-01-24] MEDS ORDERED: methylPREDNISolone 50 MG in SYRINGE 0 ML IV SCH (15:00)
--- NOTE | 2023-01-24 15:23 | Electrocardiogram Report ---
Test Reason : Blood Pressure : / mmHG Vent. Rate : 103 BPM Atrial Rate : 103 BPM P-R Int : 184 ms QRS Dur : 114 ms QT Int : 328 ms P-R-T Axes : 084 130 -62 degrees QTc Int : 429 ms Sinus tachycardia Possible Left atrial enlargement Right axis deviation Incomplete right bundle branch block Possible Right ventricular hypertrophy Abnormal ECG Confirmed by Jose Martin Damico ([id number]) on 01/24/2023 3:23:25 PM Referred By: REFERRED SELF Confirmed By:Serg Damico
[2023-01-24] MEDS: ATORVASTATIN 20 MG TAB PO SCH (20:41)
[2023-01-25] MEDS: methylPREDNISolone 40 MG in SYRINGE 0 ML IV SCH ×3 (03:16→20:22)
[2023-01-25] MEDS: HEPARIN SOD 5,000 UNIT/0.5 ML VIAL SQ SCH ×3 (05:23→20:23)
[2023-01-25 06:39] LABS: Hemoglobin 17.1 g/dl (14.0-18.0); Mean Corpuscular Hemoglobin 28.9 pg (25.0-34.0); Mean Corpuscular Hgb Conc 31.1 g/dL (32.0-36.0); Mean Corpuscular Volume 93.1 fL (80.0-100.0); Mean Platelet Volume 9.9 fL (9.4-12.4); Platelet Count 263 K/uL (130-400); RDW Coefficient of Variation 15.4 % (11.5-14.5); Red Blood Count 5.91 M/uL (4.70-6.10); White Blood Count 6.45 K/ul (4.8-10.8)
[2023-01-25 07:09] LABS: BUN Creatinine Ratio 28.6 (10-20); Calcium 9.3 mg/dl (8.6-10.3); Est GFR (African American) 110.4 ml/min; Est GFR (Non-African American) 95.2 ml/min; Magnesium 1.6 mg/dl (1.7-2.4); Potassium 4.8 mmol/L (3.5-5.1)
--- NOTE | 2023-01-25 07:23 | Hospitalist Progress Note ---
Date of Service January 25, 2023 Assessment & Plan (1) CHF (congestive heart failure): Plan: HFpEF - Clinically appears hypervolemic - proBNP elevated in the ED at 644 - Initial troponin not elevated and EKG does not show evidence of acute ischemia. - TTE with grade 1 diastolic dysfunction, EF= 55-60% - LE Doppler negative for DVT - Continue to monitor I/Os , so far this admission net negative 6L - Continue Lasix, will reevaluate kidney function tomorrow morning and dose Lasix based on kidney function - Continue to monitor on telemetry COPD - Exam consistent with acute exacerbation of COPD - Will continue Solu-Medrol at 40mg IV daily - Continue with home inhaler regimen Hypocalcemia - Patient found to have significant hypocalcemia with serum calcium level at 5 upon initial arrival along with low albumin level of 1.9 - Patient given IV calcium in the ED and repeat calcium level improved to 9.3 - Will continue to trend Hypomagnesemia - Mg= 1.6 this morning - Repleted - Will continue to trend Hypokalemia - Present on presentation, resolved - Continue to trend HLD - continue statin HTN - continue home ARB, losartan on formulary DM2 - Hold oral hypoglycemics while inpatient - SSI - Glycemic Consult, appreciate recommendations - Hemoglobin A1c= 7.3 (2) COPD (chronic obstructive pulmonary disease): (3) Hypocalcemia: (4) Hypomagnesemia: (5) Hypokalemia: (6) Hyperlipidemia: (7) Hypertension: (8) Type II diabetes mellitus: Admission and Anticipated Discharge Date Admission Date: January 24, 2023 Supervising Physician Co-Signing Physician Notes ATTESTATION I also saw the patient and confirmed bridges portions of the history and exam. I agree with the impression and plan in the resident documentation, and as summarized below. He feels subjective further decrease in his lower extremity edema. Breathing is about the same. Maybe a little bit more tired today overall. EXAM 122/65, 85, 18, 36.6, 90% on nasal cannula at 4 L/min This morning weight 119.6 kg, down from 123.9 yesterday (although there are multiple weights yesterday, 118.388 kg and 123.9 kg) Lungs still fairly tight, global wheezing, similar to modest improvements compared to yesterday's lung exam Heart regular rate Extremities with bilateral edema, proximal to knees; skin seems less taunt when compared to yesterday. Erythema seems less; no warmth or tenderness. DATA Labs Hemoglobin 17.1 Potassium 4.8, BUN 22, creatinine 0.77 Hemoglobin A1c 7.3% Imaging Chest x-ray dated 01/24/2023 shows cardiomegaly with interstitial pulmonary edema, small right and trace left pleural effusions. Lower extremity Dopplers completed 01/24/2023 demonstrate no DVT Echocardiogram performed 01/24/2023 shows normal left ventricular systolic function without segmental wall motion abnormalities, grade 1 diastolic dysfunction, impaired relaxation which may be normal for age. Micro Blood cultures dated 01/23/2023 show no growth at 24 hours IMPRESSION & PLAN COPD, acute exacerbation Lung exam is consistent with acute exacerbation; decreased air movement with wheezing Continue IV steroids Continue home inhaler regimen CHF, lower extremity edema He has had about 40 pound weight gain in a relatively short period of time Echocardiogram completed yesterday shows preserved systolic function, minimal diastolic dysfunction He had 1+ protein on admission urinalysis; 2+ protein on previous urinalysis; creatinine 1.02 Continue diuresis (he is just shy of -6 L this admission) Renal function preserved Daily BMP Additional per resident documentation Subjective Doing well today. Notes continued improvement in LE edema. Denies dyspnea, chest pain. Appetite is good. Review of Systems Review of Systems: As per above Physical Exam Physical Exam: Constitutional: well-appearing, no acute distress HEENT: NCAT, no conjunctival injection CV: regular rhythm, no murmur appreciated, extremities well-perfused, 2+ LE to mid ramirez Resp: Diminished breath sounds with diffuse wheezing GI: soft, mildly distended, nontender, BS normoactive MSK: no gross deformities appreciated Skin: warm, dry, no rash appreciated. LE mild erythematous B/L without any open wounds Neuro: alert, oriented, no focal neurologic deficit appreciated Results & Data Results & Data Vital Signs (Past 12 Hours) Vital Signs Temp Pulse Pulse Resp BP Pulse Ox O2 Del Method 01/25/23 07:16 36.5 C 91 H 18 145/78 H 91 Nasal Cannula 01/25/23 03:44 36.6 C 88 20 121/76 92 Nasal Cannula 01/24/23 23:00 97 H 01/24/23 22:46 36.9 C 89 20 118/68 91 Nasal Cannula 01/24/23 19:36 36.9 C 94 H 20 130/71 90 Nasal Cannula O2 Flow Rate 01/25/23 07:16 5 01/25/23 03:44 4 01/24/23 23:00 01/24/23 22:46 4 01/24/23 19:36 4 Resident Activity Tracking Resident Involvement: Resident Care Provided Care Provided: Adult Hospital Medicine (1) CHF (congestive heart failure) Heart failure chronicity: acute Heart failure type: diastolic Qualified Code(s): I50.31 - Acute diastolic (congestive) heart failure
[2023-01-25] MEDS: INSULIN ASPART PER UNIT CHARGE SC SCH ×4 (08:22→20:20)
[2023-01-25] MEDS: MAGNESIUM SULFATE / D5W 1 GM/100 ML BAG IV SCH ×2 (08:33→10:42)
[2023-01-25] MEDS: ASPIRIN 81 MG ECTAB PO SCH (08:34)
[2023-01-25] MEDS: CHOLECALCIFEROL 1,000 UNITS 25 MCG TAB PO SCH (08:34)
[2023-01-25] MEDS: FLUTICASONE FUROATE 200MCG 14 PUFFS/INHALER INH SCH (08:35)
[2023-01-25] MEDS: LOSARTAN POTASSIUM 50 MG TAB PO SCH (08:35)
[2023-01-25] MEDS: buPROPion XL 150 MG TABCR PO SCH (08:35)
[2023-01-25] MEDS: UMECLIDINIUM/VILANTEROL 62.5/25MCG 7 PUFFS/INHALER INH SCH (08:36)
[2023-01-25 10:59] LABS: Appearance Urine Clear (Clear); Bilirubin Urine Negative (Negative); Blood Urine Negative (Negative); Color Urine Yellow; Glucose Urine UA Negative (Negative); Ketones Urine Negative (Negative); Leukocyte Esterase Urine Negative (Negative); Nitrite Urine Negative (Negative); Protein Urine Negative (Negative); Specific Gravity Urine 1.014 (1.000-1.030); Urobilinogen Urine Negative (Negative); pH Urine 5.5 (4.5-7.5)
[2023-01-25] MEDS ORDERED: FUROSEMIDE INJ 20 MG/2 ML VIAL IV ONE (13:00)
[2023-01-25] MEDS: guaiFENesin 600 MG TABCR PO PRN (15:58)
[2023-01-25] MEDS: LANTUS PER UNIT CHARGE SC SCH (20:21)
[2023-01-25] MEDS: ATORVASTATIN 20 MG TAB PO SCH (20:23)
[2023-01-26] MEDS: methylPREDNISolone 40 MG in SYRINGE 0 ML IV SCH ×3 (03:03→19:52)
[2023-01-26] MEDS: HEPARIN SOD 5,000 UNIT/0.5 ML VIAL SQ SCH ×3 (05:08→19:53)
[2023-01-26 06:52] LABS: Hematocrit (blood only) 52.6 % (42.0-52.0); Hemoglobin 16.1 g/dl (14.0-18.0); Mean Corpuscular Hgb Conc 30.6 g/dL (32.0-36.0); Mean Corpuscular Volume 94.8 fL (80.0-100.0); Mean Platelet Volume 9.3 fL (9.4-12.4); Platelet Count 271 K/uL (130-400); RDW Standard Deviation 52.1 fL (36.4-46.3); Red Blood Count 5.55 M/uL (4.70-6.10); White Blood Count 6.58 K/ul (4.8-10.8)
--- NOTE | 2023-01-26 07:07 | Hospitalist Progress Note ---
Date of Service January 26, 2023 Assessment & Plan (1) CHF (congestive heart failure): Plan: HFpEF - Clinically appears hypervolemic - proBNP elevated in the ED at 644 - Initial troponin not elevated and EKG does not show evidence of acute ischemia. - TTE with grade 1 diastolic dysfunction, EF= 55-60% - LE Doppler negative for DVT - Continue to monitor I/Os , so far this admission net negative 8.5L - Continue Lasix, plan to increase to 20mg BID as long as kidneys continue to tolerate - Cardiology consulted, appreciate recommendations - Restart Jardiance - will consider starting spironolactone - Continue to monitor on telemetry COPD - Exam consistent with acute exacerbation of COPD - Will continue Solu-Medrol at 40mg IV q8 - Continue with home inhaler regimen - DuoNebs - Incentive spirometry, flutter valve Hypocalcemia - Patient found to have significant hypocalcemia with serum calcium level at 5 upon initial arrival along with low albumin level of 1.9 - Patient given IV calcium in the ED and repeat calcium level improved to 9.3 - Will continue to trend Hypomagnesemia - Mg= 1.6 this morning - Repleted - Will continue to trend Hypokalemia - Present on presentation, resolved - Continue to trend HLD - continue statin HTN - continue home ARB, losartan on formulary DM2 - continue to hold metformin, restart Jardiance - SSI - Glycemic Consult, appreciate recommendations - Hemoglobin A1c= 7.3 (2) COPD (chronic obstructive pulmonary disease): (3) Hypocalcemia: (4) Hypomagnesemia: (5) Hypokalemia: (6) Hyperlipidemia: (7) Hypertension: (8) Type II diabetes mellitus: Admission and Anticipated Discharge Date Admission Date: January 24, 2023 Supervising Physician Co-Signing Physician Notes ATTESTATION I also saw the patient and confirmed bridges portions of the history and exam. I agree with the impression and plan in the resident documentation, and as sum marized below. He continues to diurese quite impressively; he is down another 2 kg in 24 hours and cumulative negative balance of -7.5 L this admission. EXAM 133/73, 66, 20, 36.6, 91% on nasal cannula at 4 L/min This morning's weight is 117.7, down from 119.6 yesterday, and 123.9 the day previous. Alert and oriented. No distress appreciated. Lungs with generalized wheezing, slightly improved compared to yesterday Heart regular DATA Labs Hemoglobin 16.1 Sodium 140, potassium 4.7, BUN 21, creatinine 0.72 Imaging No new imaging As noted previously, echocardiogram performed 01/24/2023 shows normal left ventricular systolic function without segmental wall motion abnormalities, grade 1 diastolic dysfunction, impaired relaxation which may be normal for age. Micro Blood cultures dated 01/23/2023 show no growth at 48 hours IMPRESSION & PLAN COPD, acute exacerbation Lung exam is consistent with acute exacerbation; decreased air movement with wheezing Continue IV steroids; consider transition to p.o. prednisone tomorrow Continue home inhaler regimen CHF, lower extremity edema Continues to diurese well, -1.5 L since admission He has had about 40 pound weight gain in a relatively short period of time Increase Lasix to 40 mg IV every morning, 20 mg every afternoon Daily BMP Additional per resident documentation Subjective Doing well this morning. States that his dyspnea is improving, able to walk around room. LE edema has been improving. Pain in legs is also improving. Review of Systems Review of Systems: As per above Physical Exam Physical Exam: Constitutional: well-appearing, no acute distress HEENT: NCAT, no conjunctival injection CV: regular rhythm, no murmur appreciated, extremities well-perfused, 2+ LE to mid ramirez Resp: Diminished breath sounds with diffuse wheezing GI: soft, mildly distended, nontender, BS normoactive MSK: no gross deformities appreciated Skin: warm, dry, no rash appreciated. LE mild erythematous B/L without any open wounds; improving Neuro: alert, oriented, no focal neurologic deficit appreciated Results & Data Results & Data Vital Signs (Past 12 Hours) Vital Signs Temp Pulse Pulse Resp BP Pulse Ox O2 Del Method 01/26/23 03:22 36.6 C 68 18 117/68 91 Nasal Cannula 01/25/23 23:00 75 01/25/23 23:05 36.7 C 76 16 114/61 91 Nasal Cannula 01/25/23 19:51 36.9 C 93 H 20 115/54 L 91 Nasal Cannula 01/25/23 19:06 Nasal Cannula O2 Flow Rate 01/26/23 03:22 4 01/25/23 23:00 01/25/23 23:05 4 01/25/23 19:51 4 01/25/23 19:06 4 Resident Activity Tracking Resident Involvement: Resident Care Provided Care Provided: Adult Hospital Medicine (1) CHF (congestive heart failure) Heart failure chronicity: acute Heart failure type: diastolic Qualified Code(s): I50.31 - Acute diastolic (congestive) heart failure
[2023-01-26 07:24] LABS: Anion Gap 3 (3-11); BUN Creatinine Ratio 29.2 (10-20); Blood Urea Nitrogen 21 mg/dl (6-23); Calcium 9.3 mg/dl (8.6-10.3); Carbon Dioxide 42 mmol/L (21-32); Chloride 95 mmol/L (98-107); Creatinine Clr Calc Pharmacy 135.5 ml/min; Est GFR (African American) 113.5 ml/min; Est GFR (Non-African American) 97.9 ml/min; Glucose 133 mg/dl (70-99(Fasting)); Magnesium 1.7 mg/dl (1.7-2.4); Sodium 140 mmol/L (136-145)
[2023-01-26] MEDS ORDERED: ALBUT/IPRATROP 3MG/0.5MG NEB 3 ML VIAL NEB PRN (07:34)
[2023-01-26] MEDS: INSULIN ASPART PER UNIT CHARGE SC SCH ×4 (08:09→21:44)
[2023-01-26] MEDS: FLUTICASONE FUROATE 200MCG 14 PUFFS/INHALER INH SCH (08:14)
[2023-01-26] MEDS: UMECLIDINIUM/VILANTEROL 62.5/25MCG 7 PUFFS/INHALER INH SCH (08:15)
[2023-01-26] MEDS: LOSARTAN POTASSIUM 50 MG TAB PO SCH (08:17)
[2023-01-26] MEDS: CHOLECALCIFEROL 1,000 UNITS 25 MCG TAB PO SCH (08:17)
[2023-01-26] MEDS: ASPIRIN 81 MG ECTAB PO SCH (08:17)
[2023-01-26] MEDS: buPROPion XL 150 MG TABCR PO SCH (08:17)
[2023-01-26] MEDS: guaiFENesin 600 MG TABCR PO PRN ×2 (08:38→19:52)
--- NOTE | 2023-01-26 10:05 | Cardiology Consultation ---
Date of Consultation January 26, 2023 Assessment & Plan (1) CHF (congestive heart failure): (2) SOB (shortness of breath): (3) Edema: (4) Right bundle branch block: Plan 1. Shortness of breath: He appears to have had an element of pulmonary vascular congestion at the time of admission. He underwent aggressive diuresis with significant improvement in his breathing. Still some element of dyspnea, likely associated with his known COPD. 2. Edema: He continues to have an element of significant edema. He reports having increasing abdominal girth and a firm belly previously. This is improved since he has been in the hospital. Likely combination of known venous insufficiency and diastolic heart failure. Perhaps an element of cor pulmonale as well. 3. Heart failure with preserved ejection fraction: He seems to have had an element of pulmonary vascular congestion which would imply some diastolic heart failure. Unclear precipitant. No history consistent with an arrhythmia. Blood pressure appears to be well controlled. No dietary indiscretion by report. No ischemic event. I would restart the patient's Jardiance I will continue diuresis, 20 mg of Lasix intravenous daily seems to be working well I would consider starting spironolactone as he approaches euvolemia provided his potassium also is a little lower He would likely also benefit from conservative measures such as leg elevation, compression stockings or Feliz wrap. History of Present Illness Reason for Consultation: Edema, shortness of breath Requesting Physician: Librado Attending Physician: Bishop Williamson, History of Present Illness The patient is a 67-year-old gentleman with a history of an abdominal aortic aneurysm status post endovascular repair who also suffers from lower extremity venous insufficiency. The patient apparently had been doing quite well with r espect to lower extremity edema until approximately 1 week prior to admission. He did notice progressive worsening of lower extremity edema, thigh edema and increasing abdominal girth. This was eventually followed by worsening shortness of breath as well. He had some associated weight gain. He was noted by family members to be short of breath and was advised to go to the emergency room for evaluation. At the hospital he was discovered to have significant edema in an element of pulmonary vascular congestion. Over the past several days he has undergone a diuresis with improvement in his symptoms. Patient states that his breathing is nearly back to normal. Before admission the patient is able ambulate only a few feet before becoming quite short of breath. He denied any associated dizziness or palpitation. He was noticing some minor chest pressure at the time of admission which appears to have resolved with diuresis. Generally speaking he does not have any chest pain on exertion. He denies any change in his diet. He does most of the cooking himself. He does have a pulse oximeter at home and did report some elevated heart rate just prior to admission. However, his heart rate was only around 100 beats per minute by report. Normally he is around 70 beats per minute. Allergies Allergy/AdvReac Type Severity Reaction Status Date / Time No Known Allergies Allergy Verified 01/23/23 22:15 Home Medications Medication Instructions Recorded Confirmed Type cholecalciferol (vitamin D3) 50 2,000 unit PO QAM 12/23/19 01/23/23 History mcg (2,000 unit) tablet aspirin 81 mg tablet,delayed 81 mg PO QAM 01/08/21 01/23/23 History release irbesartan 150 mg tablet 150 mg PO QAM #90 tabs 04/05/22 01/23/23 Rx atorvastatin 20 mg tablet 20 mg PO HS #90 tabs 06/10/22 01/23/23 Rx furosemide 40 mg tablet 40 mg PO Q OTHER DAY 08/14/22 01/23/23 History potassium chloride 10 mEq 10 meq PO Q OTHER DAY 08/14/22 01/23/23 History capsule,extended release fluticasone fur. 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 GALLARDO Tubular adenoma of colon Type II diabetes mellitus Surgical History History of appendectomy History of bowel resection APPROX 20 yr ago History of cataract surgery Bilateral History of colonoscopy History of open reduction and internal fixation (ORIF) procedure left ankle History of tooth extraction Hx of total adrenalectomy left S/P AAA repair 2015 Family History Aunt Ovarian cancer Mother Diabetes Hypertension Father Diabetes Hypertension Denies family history of Prostate cancer Myocardial infarction Breast cancer Colorectal cancer Social History Smoking Status: Current some day smoker Cigarettes Per Day: 1-5; Second Hand Exposure: No; Do You Dip or Chew Tobacco: No; Hx Alcohol Use: No Hx Substance Use: No Preferred Language: Romanian Communication Ability: Effective Visual Impairment: No Limitations Teacher Tutor Required: No Beliefs That Will Affect Care: None marital status: Current Living Situation: Alone Current Living Situation Comment: alone, children check on patient often Feels Safe at Home: Yes Diet: regular caffeine: Yes Seatbelt Use: always Sunscreen Use: No Assistive Devices: Denture - Upper and Glasses Review of Systems Review of Systems: Per HPI. No recent constitutional symptoms such as fevers or chills. Physical Exam Physical Exam: The patient is alert and oriented. Mood and affect appeared normal. He answered all questions appropriately. HEENT: Pupils are equal and reactive to light and accommodation. Extraocular movements are intact. The sclerae are anicteric. Neuro: Cranial nerves intact Neck: Patient's neck is supple. Lungs: Poor air movement overall. No rales. No expiratory wheezing. Prolonged expiratory phase. Cardiac: Heart demonstrates a regular rate and rhythm. Normal S1 and S2. No murmurs on examination. Pulses: The patient has palpable radial pulses bilaterally that are equal in intensity Extremities: There was no evidence of hypoperfusion. There is no cyanosis or clubbing. Severe lower extremity edema to the thighs. Skin: I did not appreciate any rashes on examination today. Results & Data Vital Signs (Past 12 Hours) Vital Signs Temp Pulse Pulse Resp BP Pulse Ox O2 Del Method 01/26/23 07:37 36.6 C 78 20 133/73 91 Nasal Cannula 01/26/23 07:41 66 01/26/23 03:22 36.6 C 68 18 117/68 91 Nasal Cannula 01/25/23 23:00 75 01/25/23 23:05 36.7 C 76 16 114/61 91 Nasal Cannula O2 Flow Rate 01/26/23 07:37 4 01/26/23 07:41 01/26/23 03:22 4 01/25/23 23:00 01/25/23 23:05 4 Laboratory Results Abnormal Lab Results 01/25/23 01/25/23 01/25/23 11:17 16:31 20:19 WBC RBC Hgb Hct MCV MCH MCHC RDW Std Deviation RDW Coeff of Brooks Plt Count MPV Sodium Potassium Chloride Carbon Dioxide Anion Gap BUN Creatinine Est Cr Clr Drug Dosing Est GFR ( Amer) Est GFR (Non-Af Amer) BUN/Creatinine Ratio Glucose POC Glucose 137 H 160 H 123 H Calcium Magnesium Urine Color Urine Appearance Urine pH Ur Specific [place] Urine Protein Urine Glucose (UA) Urine Ketones Urine Blood Urine Nitrite Urine Bilirubin Urine Urobilinogen Ur Leukocyte Esterase 01/25/23 01/26/23 01/26/23 Unknown 05:26 05:26 WBC 6.58 RBC 5.55 Hgb 16.1 Hct 52.6 H MCV 94.8 MCH 29.0 MCHC 30.6 L RDW Std Deviation 52.1 H RDW Coeff of Brooks 15.0 H Plt Count 271 MPV 9.3 L Sodium 140 Potassium TNP Chloride 95 L Carbon Dioxide 42 H* Anion Gap 3 BUN 21 Creatinine 0.72 Est Cr Clr Drug Dosing 135.5 Est GFR ( Amer) 113.5 Est GFR (Non-Af Amer) 97.9 BUN/Creatinine Ratio 29.2 H Glucose 133 H POC Glucose Calcium 9.3 Magnesium 1.7 Urine Color Yellow Urine Appearance Clear Urine pH 5.5 Ur Specific [place] 1.014 Urine Protein Negative Urine Glucose (UA) Negative Urine Ketones Negative Urine Blood Negative Urine Nitrite Negative Urine Bilirubin Negative Urine Urobilinogen Negative Ur Leukocyte Esterase Negative 01/26/23 01/26/23 07:33 08:40 WBC RBC Hgb Hct MCV MCH MCHC RDW Std Deviation RDW Coeff of Brooks Plt Count MPV Sodium Potassium 4.7 Chloride Carbon Dioxide Anion Gap BUN Creatinine Est Cr Clr Drug Dosing Est GFR ( Amer) Est GFR (Non-Af Amer) BUN/Creatinine Ratio Glucose POC Glucose 147 H Calcium Magnesium Urine Color Urine Appearance Urine pH Ur Specific [place] Urine Protein Urine Glucose (UA) Urine Ketones Urine Blood Urine Nitrite Urine Bilirubin Urine Urobilinogen Ur Leukocyte Esterase Diagnostic Findings Echocardiogram performed 01/24/2023: Normal LV systolic function with ejection fraction of 55-60%. Stage I diastolic dysfunction. Mildly dilated right ventricle with normal function. Mild tricuspid regurgitation. Increased IVC diameter. PG Care Time/CCT Total # of Minutes Spent Total Time Spent with Patient: Total time spent is greater than 50% in coordination of care (as documented) at patient's floor/unit and/or counseling patient: Coding Level of Care Code 03395 INT INP/OBS CARE 75MIN Diagnoses CHF (congestive heart failure) I50.31 Heart failure chronicity: acute Heart failure type: diastolic SOB (shortness of breath) R06.02 Edema R60.9 Edema type: unspecified Right bundle branch block I45.10 (1) CHF (congestive heart failure) Heart failure chronicity: acute Heart failure type: diastolic Qualified Code(s): I50.31 - Acute diastolic (congestive) heart failure (3) Edema Edema type: unspecified Qualified Code(s): R60.9 - Edema, unspecified
[2023-01-26] MEDS ORDERED: FUROSEMIDE INJ 20 MG/2 ML VIAL IV ONE (13:10)
[2023-01-26] MEDS: ATORVASTATIN 20 MG TAB PO SCH (19:52)
[2023-01-26] MEDS: LANTUS PER UNIT CHARGE SC SCH (21:44)
[2023-01-27] MEDS: methylPREDNISolone 40 MG in SYRINGE 0 ML IV SCH ×3 (02:24→19:57)
[2023-01-27] MEDS: HEPARIN SOD 5,000 UNIT/0.5 ML VIAL SQ SCH ×3 (04:44→19:56)
--- NOTE | 2023-01-27 07:35 | Hospitalist Progress Note ---
Date of Service January 27, 2023 Assessment & Plan (1) CHF (congestive heart failure): Plan: HFpEF - Clinically appears hypervolemic - proBNP elevated in the ED at 644 - Initial troponin not elevated and EKG does not show evidence of acute ischemia. - TTE with grade 1 diastolic dysfunction, EF= 55-60% - LE Doppler negative for DVT - Continue to monitor I/Os , so far this admission net negative 8.5L - Continue Lasix 20mg BID as long as kidneys continue to tolerate - Restart Jardiance - will consider starting spironolactone once closer to d/c - Continue to monitor on telemetry COPD - Exam consistent with acute exacerbation of COPD - Will continue Solu-Medrol at 40mg IV q8 - Continue with home inhaler regimen -Elevated bicarb on labs, could be secondary to COPD. RACHELLE also possibility, will need sleep study as an OP - Has PFTs scheduled for 03/2023 - DuoNebs - Incentive spirometry, flutter valve Hypocalcemia - Patient found to have significant hypocalcemia with serum calcium level at 5 upon initial arrival along with low albumin level of 1.9 - Patient given IV calcium in the ED and repeat calcium level improved to 9.3 - Will continue to trend Hypomagnesemia - Mg= 1.6 this morning - Repleted - Will continue to trend Hypokalemia - Present on presentation, resolved - Continue to trend HLD - continue statin HTN - continue home ARB, losartan on formulary DM2 - continue to hold metformin, restart Jardiance - SSI - Glycemic Consult, appreciate recommendations - Hemoglobin A1c= 7.3 (2) COPD (chronic obstructive pulmonary disease): (3) Hypocalcemia: (4) Hypomagnesemia: (5) Hypokalemia: (6) Hyperlipidemia: (7) Hypertension: (8) Type II diabetes mellitus: Admission and Anticipated Discharge Date Admission Date: January 24, 2023 Supervising Physician Co-Signing Physician Notes I personally examined the patient and verified all bridges points of history and exam, discussed case, and agree with decision making with Dr Pavon Feeling better than whenever he came in. Still requiring oxygen. Does not recall ever being tested for sleep apneadoes relate that he has COPD but does not think it is very bad. Relates he had PFTs years ago, has them scheduled for early March. Vitals noted, in general he is awake and alert pleasant no distress. HEENT normocephalic atraumatic mucous membranes moist. Breathing unlabored no accessory muscle use good effort, still on 4L acute hypoxic respiratory failureappears to be predominantly acute diastolic CHF, also possible elements of COPD. Continue to diurese for now, PFTs pending, workup for RACHELLE/OHS (sleep study as outpt unless ABG/overnight pulse ox obviate the need) otherwise as above Subjective Tyree states that he is feeling better. Shortness of breath improving. Edema in legs has also improved. Review of Systems Review of Systems: As per above Physical Exam Physical Exam: Constitutional: well-appearing, no acute distress HEENT: NCAT, no conjunctival injection CV: regular rhythm, no murmur appreciated, extremities well-perfused, 2+ LE to mid ramirez Resp: Diminished breath sounds with diffuse wheezing GI: soft, mildly distended, nontender, BS normoactive MSK: no gross deformities appreciated Skin: warm, dry, no rash appreciated. LE mild erythematous B/L without any open wounds; improving Neuro: alert, oriented, no focal neurologic deficit appreciated Results & Data Results & Data Vital Signs (Past 12 Hours) Vital Signs Temp Pulse Pulse Resp BP Pulse Ox O2 Del Method 01/27/23 03:03 36.7 C 81 18 133/82 95 Nasal Cannula 01/26/23 23:00 78 01/26/23 23:10 37.1 C 70 20 146/76 H 92 Nasal Cannula 01/26/23 19:50 Nasal Cannula O2 Flow Rate 01/27/23 03:03 4.0 01/26/23 23:00 01/26/23 23:10 4.0 01/26/23 19:50 4 Resident Activity Tracking Resident Involvement: Resident Care Provided Care Provided: Adult Hospital Medicine (1) CHF (congestive heart failure) Heart failure chronicity: acute Heart failure type: diastolic Qualified Code(s): I50.31 - Acute diastolic (congestive) heart failure
[2023-01-27 07:41] LABS: Hematocrit (blood only) 56.4 % (42.0-52.0); Hemoglobin 17.1 g/dl (14.0-18.0); Mean Corpuscular Hemoglobin 28.9 pg (25.0-34.0); Mean Corpuscular Hgb Conc 30.3 g/dL (32.0-36.0); Mean Corpuscular Volume 95.3 fL (80.0-100.0); Mean Platelet Volume 9.4 fL (9.4-12.4); Platelet Count 252 K/uL (130-400); RDW Coefficient of Variation 15.3 % (11.5-14.5); RDW Standard Deviation 52.4 fL (36.4-46.3); Red Blood Count 5.92 M/uL (4.70-6.10); White Blood Count 6.43 K/ul (4.8-10.8)
[2023-01-27 08:11] LABS: Magnesium 1.7 mg/dl (1.7-2.4)
[2023-01-27] MEDS: INSULIN ASPART PER UNIT CHARGE SC SCH ×4 (08:25→19:50)
[2023-01-27] MEDS: UMECLIDINIUM/VILANTEROL 62.5/25MCG 7 PUFFS/INHALER INH SCH (08:38)
[2023-01-27] MEDS: CHOLECALCIFEROL 1,000 UNITS 25 MCG TAB PO SCH (08:39)
[2023-01-27] MEDS: FLUTICASONE FUROATE 200MCG 14 PUFFS/INHALER INH SCH (08:39)
[2023-01-27] MEDS: buPROPion XL 150 MG TABCR PO SCH (08:39)
[2023-01-27] MEDS: LOSARTAN POTASSIUM 50 MG TAB PO SCH (08:39)
[2023-01-27] MEDS: ASPIRIN 81 MG ECTAB PO SCH (08:39)
[2023-01-27] MEDS: EMPAGLIFLOZIN 10 MG TAB PO SCH (08:39)
[2023-01-27] MEDS: FUROSEMIDE INJ 20 MG/2 ML VIAL IV SCH ×2 (08:40→17:32)
[2023-01-27 09:18] LABS: BUN Creatinine Ratio 23.3 (10-20); Blood Urea Nitrogen 21 mg/dl (6-23); Calcium 9.9 mg/dl (8.6-10.3); Carbon Dioxide > 45 mmol/L (21-32); Chloride 92 mmol/L (98-107); Creatinine Clr Calc Pharmacy 106.9 ml/min; Est GFR (African American) 103.5 ml/min; Est GFR (Non-African American) 89.3 ml/min; Glucose 132 mg/dl (70-99(Fasting)); Potassium 5.2 mmol/L (3.5-5.1); Sodium 142 mmol/L (136-145)
--- NOTE | 2023-01-27 12:03 | Pharmacy Report ---
Pharmacy Glycemic Short Note 2 - Date of Service January 27, 2023 - Glycemic Short BSG Results (Last 24 hours): 01/26/23 01/26/23 01/27/23 16:23 21:40 07:12 Glucose 132 H POC Glucose 143 H 128 H 01/27/23 01/27/23 07:15 11:07 Glucose POC Glucose 118 H 104 H OUTPATIENT ANTIDIABETIC REGIMEN: * Jardiance 10 mg PO daily * Metformin 500 mg PO qAM, 1000 mg PO qPM HbA1c: 7.3% (01/24/23) ASSESSMENT: 01/27/23 * BSGs yesterday were [id number] mg/dL. Patient received 7 units of insulin yesterday, all bolus insulin. * Fasting today is 118 mg/dL. Continue to hold Lantus. * Medicine team resumed Jardiance. * Patient continues on Solu-Medrol 40 mg IV TID. * Continue Novolog- low threshold to remove CR now that Jardiance resumed. BACKGROUND * DN is a 67 year old male who presented to ED overnight with worsening shortness of breath * Pertinent PMH includes T2DM, CHF, and COPD * Received 60 mg IV Solu-medrol x 1 yesterday, no ongoing steroids at this time * BSGs have been on low-side thus far, received 3 units of insulin at breakfast, which resulted in a lunchtime BSG of 75 mg/dL * Will hold further carb coverage and utilize CF only until upward trend noted PLAN FOR INPATIENT GLYCEMIC CONTROL: * Hold outpatient oral diabetes medications- Jardiance resumed 01/27/23 * Basal insulin * hold * Bolus insulin * NovoLog per scale ACHS or Q6hrs while NPO * Goal Range: Low 110 mg/dL - High 140 mg/dL * Correction Factor: 35 mg/dL/unit * Carbohydrate ratio: 1 unit per 15 grams CHO consumed
--- NOTE | 2023-01-27 18:37 | Billing Data ---
Date of Service January 27, 2023 Coding Level of Care Code 35668 SUB INP/OBS CARE
[2023-01-27] MEDS: ATORVASTATIN 20 MG TAB PO SCH (19:57)
[2023-01-28] MEDS: methylPREDNISolone 40 MG in SYRINGE 0 ML IV SCH ×2 (04:09→10:45)
[2023-01-28] MEDS: HEPARIN SOD 5,000 UNIT/0.5 ML VIAL SQ SCH ×3 (05:14→21:10)
--- NOTE | 2023-01-28 06:59 | Hospitalist Progress Note ---
Date of Service January 28, 2023 Assessment & Plan (1) CHF (congestive heart failure): Plan: HFpEF - Clinically appears hypervolemic, significantly better than when he was admitted - proBNP elevated in the ED at 644 - Initial troponin not elevated and EKG does not show evidence of acute ischemia. - TTE with grade 1 diastolic dysfunction, EF= 55-60% - LE Doppler negative for DVT - Continue to monitor I/Os , so far this admission net negative 16L - Continue Lasix 20mg BID as long as kidneys continue to tolerate - Restart Jardiance - will consider starting spironolactone once closer to d/c - Continue to monitor on telemetry COPD - Exam consistent with acute exacerbation of COPD; improving - Will decrease Solu-Medrol at 40mg IV BID - Continue with home inhaler regimen -Elevated bicarb on labs, could be secondary to COPD. RACHELLE also possibility, will need sleep study as an OP. Start on acetazolamide - Has PFTs scheduled for 03/2023 - DuoNebs - Incentive spirometry, flutter valve Hypocalcemia - Patient found to have significant hypocalcemia with serum calcium level at 5 upon initial arrival along with low albumin level of 1.9 - Patient given IV calcium in the ED and repeat calcium level improved to 9.3 - Will continue to trend Hypomagnesemia - Repleted - Will continue to trend Hypokalemia - Present on presentation, resolved - Continue to trend HLD - continue statin HTN - continue home ARB, losartan on formulary DM2 - continue to hold metformin, restart Jardiance - SSI - Hemoglobin A1c= 7.3 (2) COPD (chronic obstructive pulmonary disease): (3) Hypocalcemia: (4) Hypomagnesemia: (5) Hypokalemia: (6) Hyperlipidemia: (7) Hypertension: (8) Type II diabetes mellitus: Admission and Anticipated Discharge Date Admission Date: January 24, 2023 Supervising Physician Co-Signing Physician Notes I personally examined the patient and verified all bridges points of history and exam, discussed case, and agree with decision making with Dr Pavon Feels better breathing easier legs less swollen overall feeling improved continues to put out significant amounts of urine. Vitals noted, in general he is awake and alert pleasant no distress. HEENT normocephalic atraumatic mucous membranes moist. Breathing unlabored no accessory muscle use good effort, still on 4L. Edema visibly improved acute hypoxic respiratory failureappears to be predominantly acute diastolic CHF, also possible elements of COPD. Continue to diurese for now (added Diamox given metabolic alkalosis), PFTs pending to be done as outpatient, workup for RACHELLE/OHS (sleep study as outpt unless ABG/overnight pulse ox obviate the need) otherwise as above Subjective Tyree is doing well today. States that he is feeling great. Breathing easier. Walking around the room. Review of Systems Review of Systems: As per above Physical Exam Physical Exam: Constitutional: well-appearing, no acute distress HEENT: NCAT, no conjunctival injection CV: regular rhythm, no murmur appreciated, extremities well-perfused, +1 pitting edema to mid ramirez Resp: End expiratory wheezes MSK: no gross deformities appreciated Skin: warm, dry, no rash appreciated. LE mild erythematous B/L without any open wounds; improving Neuro: alert, oriented, no focal neurologic deficit appreciated Results & Data Results & Data Vital Signs (Past 12 Hours) Vital Signs Temp Pulse Pulse Resp BP BP Pulse Ox 01/28/23 03:32 36.5 C 80 15 151/81 H 95 01/27/23 23:00 94 H 01/27/23 23:00 37 C 68 15 146/76 H 92 01/27/23 19:52 01/27/23 19:02 36.7 C 87 20 120/63 91 O2 Del Method O2 Flow Rate 01/28/23 03:32 Nasal Cannula 4 01/27/23 23:00 01/27/23 23:00 Nasal Cannula 4 01/27/23 19:52 Nasal Cannula 4 01/27/23 19:02 Nasal Cannula 4 Resident Activity Tracking Resident Involvement: Resident Care Provided Care Provided: Adult Hospital Medicine (1) CHF (congestive heart failure) Heart failure chronicity: acute Heart failure type: diastolic Qualified Code(s): I50.31 - Acute diastolic (congestive) heart failure
[2023-01-28 08:17] LABS: Hematocrit (blood only) 57.7 % (42.0-52.0); Hemoglobin 17.8 g/dl (14.0-18.0); Mean Corpuscular Hemoglobin 28.8 pg (25.0-34.0); Mean Corpuscular Hgb Conc 30.8 g/dL (32.0-36.0); Mean Corpuscular Volume 93.4 fL (80.0-100.0); Mean Platelet Volume 9.4 fL (9.4-12.4); Platelet Count 241 K/uL (130-400); RDW Coefficient of Variation 15.5 % (11.5-14.5); RDW Standard Deviation 51.2 fL (36.4-46.3); Red Blood Count 6.18 M/uL (4.70-6.10)
[2023-01-28] MEDS: INSULIN ASPART PER UNIT CHARGE SC SCH ×4 (08:17→21:09)
[2023-01-28 08:43] LABS: BUN Creatinine Ratio 30.8 (10-20); Blood Urea Nitrogen 24 mg/dl (6-23); Calcium 9.9 mg/dl (8.6-10.3); Carbon Dioxide > 45 mmol/L (21-32); Chloride 90 mmol/L (98-107); Creatinine Clr Calc Pharmacy 120.4 ml/min; Est GFR (African American) 109.8 ml/min; Est GFR (Non-African American) 94.7 ml/min; Glucose 128 mg/dl (70-99(Fasting)); Magnesium 1.7 mg/dl (1.7-2.4); Potassium 4.4 mmol/L (3.5-5.1); Sodium 141 mmol/L (136-145)
[2023-01-28] MEDS: UMECLIDINIUM/VILANTEROL 62.5/25MCG 7 PUFFS/INHALER INH SCH (09:11)
[2023-01-28] MEDS: FLUTICASONE FUROATE 200MCG 14 PUFFS/INHALER INH SCH (09:11)
[2023-01-28] MEDS: buPROPion XL 150 MG TABCR PO SCH (09:12)
[2023-01-28] MEDS: LOSARTAN POTASSIUM 50 MG TAB PO SCH (09:13)
[2023-01-28] MEDS: ASPIRIN 81 MG ECTAB PO SCH (09:13)
[2023-01-28] MEDS: CHOLECALCIFEROL 1,000 UNITS 25 MCG TAB PO SCH (09:13)
[2023-01-28] MEDS: EMPAGLIFLOZIN 10 MG TAB PO SCH (09:13)
[2023-01-28] MEDS: FUROSEMIDE INJ 20 MG/2 ML VIAL IV SCH ×2 (10:15→16:06)
[2023-01-28] MEDS: acetaZOLAMIDE 250 MG TAB PO SCH ×2 (10:16→21:10)
--- NOTE | 2023-01-28 12:34 | Pharmacy Report ---
Pharmacy Glycemic Sign Off Nt - Date of Service January 28, 2023 - Assessment & Plan ASSESSMENT: * Pharmacy was consulted by Dr Navarro on 01/23/23 for glycemic control and to write orders per [facility] inpatient glycemic control protocol. * Major changes made by pharmacy to antidiabetic regimen include: * initiation of Novolog with CF only * Patient has been receiving/requiring 7 units of insulin per day for adequate glycemic control * BSGs ranging 104- 134 mg/dl * Regimen has only required minor adjustments over the past 48hrs to achieve this level of control * Do not anticipate further changes in patient status that would quickly deteriorate glycemic control (i.e. patient to be NPO for upcoming procedure, steroids tapering, starting tube feedings, etc). * Please see recommendations for outpatient antidiabetic regimen below. PLAN FOR INPATIENT GLYCEMIC CONTROL: No changes needed to current regimen. * Continue to hold basal insulin * Continue NovoLog per scale ACHS/Q6hrs while NPO * Goal range = 110- 140 mg/dl * CF = 45 mg/dl/unit * CR = 1 unit for ever -- g CHO consumed * Pharmacy is signing off of glycemic consult and will no longer be making adjustments to inpatient regimen. Please feel free to re-consult if needed. Thank you.
--- NOTE | 2023-01-28 17:53 | Billing Data ---
Date of Service January 28, 2023 Coding Level of Care Code 73635 SUB INP/OBS CARE
[2023-01-28] MEDS: ATORVASTATIN 20 MG TAB PO SCH (21:10)
[2023-01-29] MEDS: HEPARIN SOD 5,000 UNIT/0.5 ML VIAL SQ SCH ×3 (05:20→20:38)
--- NOTE | 2023-01-29 07:01 | Hospitalist Progress Note ---
Date of Service January 29, 2023 Assessment & Plan (1) CHF (congestive heart failure): Plan: HFpEF - Clinically appears as though he could be approaching euvolemia - proBNP elevated in the ED at 644 - Initial troponin not elevated and EKG does not show evidence of acute ischemia. - TTE with grade 1 diastolic dysfunction, EF= 55-60% - LE Doppler negative for DVT - Continue to monitor I/Os , so far this admission net negative 22L - Continue Lasix 20mg BID as long as kidneys continue to tolerate - Restart Jardiance - will consider starting spironolactone once closer to d/c - Continue to monitor on telemetry - Has had a consistent 4L oxygen requirement, will likely need home oxygen upon discharge COPD - Exam consistent with acute exacerbation of COPD; improving - Will decrease steroids to prednisone 50mg po daily - Continue with home inhaler regimen -Elevated bicarb on labs, could be secondary to COPD. RACHELLE also possibility, will need sleep study as an OP. - Started on acetazolamide with improvement in bicarb - Has PFTs scheduled for 03/2023 - DuYara - Incentive spirometry, flutter valve Hypocalcemia - Patient found to have significant hypocalcemia with serum calcium level at 5 upon initial arrival along with low albumin level of 1.9 - Patient given IV calcium in the ED and repeat calcium level improved to 9.3 - Will continue to trend Hypomagnesemia - Repleted - Will continue to trend Hypokalemia - Present on presentation, resolved - Continue to trend HLD - continue statin HTN - continue home ARB, losartan on formulary DM2 - continue to hold metformin, restart Jardiance - SSI - Hemoglobin A1c= 7.3 (2) COPD (chronic obstructive pulmonary disease): (3) Hypocalcemia: (4) Hypomagnesemia: (5) Hypokalemia: (6) Hyperlipidemia: (7) Hypertension: (8) Type II diabetes mellitus: Admission and Anticipated Discharge Date Admission Date: January 24, 2023 Supervising Physician Co-Signing Physician Notes I personally examined the patient and verified all bridges points of history and exam, discussed case, and agree with decision making with Dr Pavon Continues to put out significant volume, continues to feel better. Vitals noted, in general he is awake and alert pleasant no distress. HEENT normocephalic atraumatic mucous membranes moist. Breathing unlabored no accessory muscle use good effort, still on 4L. Sitting up on the side of the bed acute hypoxic respiratory failureappears to be predominantly acute diastolic CHF, also possible elements of COPD. Continue to diurese for now and follow BMP daily (continue Diamox as well given metabolic alkalosis), PFTs pending to be done as outpatient, workup for RACHELLE/OHS (sleep study as outpt unless ABG/overnight pulse ox obviate the need) otherwise as above Subjective Tyree continues to do well. Continues to feel better, breathing easier. Notes decreased LE edema. Review of Systems Review of Systems: As per above Physical Exam Physical Exam: Constitutional: well-appearing, no acute distress HEENT: NCAT, no conjunctival injection CV: regular rhythm, no murmur appreciated, extremities well-perfused, trace LE edema Resp: End expiratory wheezes MSK: no gross deformities appreciated Skin: warm, dry, no rash appreciated. Neuro: alert, oriented, no focal neurologic deficit appreciated Results & Data Results & Data Vital Signs (Past 12 Hours) Vital Signs Temp Pulse Pulse Resp BP Pulse Ox O2 Del Method 01/29/23 03:24 36.4 C L 67 20 120/66 93 Room Air 01/28/23 23:00 80 01/28/23 22:37 36.3 C L 67 18 116/70 91 Nasal Cannula 01/28/23 19:17 36.8 C 77 20 128/73 90 Nasal Cannula 01/28/23 19:24 Nasal Cannula O2 Flow Rate 01/29/23 03:24 01/28/23 23:00 01/28/23 22:37 4 01/28/23 19:17 4 01/28/23 19:24 4 Resident Activity Tracking Resident Involvement: Resident Care Provided Care Provided: Adult Hospital Medicine (1) CHF (congestive heart failure) Heart failure chronicity: acute Heart failure type: diastolic Qualified Code(s): I50.31 - Acute diastolic (congestive) heart failure
[2023-01-29 07:31] LABS: Basophils # (auto) 0.02 K/uL (0-0.2); Basophils % (auto) 0.3 %; Eosinophils # (auto) 0.08 K/uL (0-0.50); Eosinophils % (auto) 1.1 %; Hematocrit (blood only) 60.2 % (42.0-52.0); Hemoglobin 18.4 g/dl (14.0-18.0); Immature Granulocytes # (auto) 0.02 K/uL (0.01-0.20); Immature Granulocytes % (auto) 0.3 %; Lymphocytes # (auto) 0.78 K/uL (1.2-3.4); Mean Corpuscular Hemoglobin 28.8 pg (25.0-34.0); Mean Corpuscular Hgb Conc 30.6 g/dL (32.0-36.0); Mean Corpuscular Volume 94.1 fL (80.0-100.0); Mean Platelet Volume 9.5 fL (9.4-12.4); Monocytes # (auto) 0.74 K/uL (0.11-0.59); Monocytes % (auto) 10.5 %; Neutrophils # (auto) 5.44 K/uL (1.40-6.50); Neutrophils % (auto) 76.8 %; Platelet Count 250 K/uL (130-400); RDW Coefficient of Variation 15.8 % (11.5-14.5); RDW Standard Deviation 51.9 fL (36.4-46.3); White Blood Count 7.08 K/ul (4.8-10.8)
[2023-01-29] MEDS: LOSARTAN POTASSIUM 50 MG TAB PO SCH (07:52)
[2023-01-29] MEDS: ASPIRIN 81 MG ECTAB PO SCH (07:52)
[2023-01-29] MEDS: CHOLECALCIFEROL 1,000 UNITS 25 MCG TAB PO SCH (07:53)
[2023-01-29] MEDS: acetaZOLAMIDE 250 MG TAB PO SCH ×2 (07:53→20:38)
[2023-01-29] MEDS: buPROPion XL 150 MG TABCR PO SCH (07:53)
[2023-01-29] MEDS: FUROSEMIDE INJ 20 MG/2 ML VIAL IV SCH ×2 (07:53→17:03)
[2023-01-29] MEDS: FLUTICASONE FUROATE 200MCG 14 PUFFS/INHALER INH SCH (07:54)
[2023-01-29] MEDS: EMPAGLIFLOZIN 10 MG TAB PO SCH (07:54)
[2023-01-29] MEDS: UMECLIDINIUM/VILANTEROL 62.5/25MCG 7 PUFFS/INHALER INH SCH (07:54)
[2023-01-29 08:03] LABS: BUN Creatinine Ratio 26.3 (10-20); Calcium 9.8 mg/dl (8.6-10.3); Creatinine Clr Calc Pharmacy 92.4 ml/min; Est GFR (African American) 92.2 ml/min; Est GFR (Non-African American) 79.6 ml/min; Magnesium 1.9 mg/dl (1.7-2.4); Potassium 3.8 mmol/L (3.5-5.1)
[2023-01-29] MEDS: INSULIN ASPART PER UNIT CHARGE SC SCH ×4 (08:05→20:31)
[2023-01-29] MEDS ORDERED: methylPREDNISolone 40 MG in SYRINGE 0 ML IV SCH (09:00)
--- NOTE | 2023-01-29 19:15 | Billing Data ---
Date of Service January 29, 2023 Coding Level of Care Code 22697 SUB INP/OBS CARE
[2023-01-29] MEDS: ATORVASTATIN 20 MG TAB PO SCH (20:38)
[2023-01-30] MEDS: HEPARIN SOD 5,000 UNIT/0.5 ML VIAL SQ SCH ×3 (05:13→20:23)
--- NOTE | 2023-01-30 07:04 | Hospitalist Progress Note ---
Date of Service January 30, 2023 Assessment & Plan (1) CHF (congestive heart failure): Plan: HFpEF - Clinically appears as though he could be approaching euvolemia - proBNP elevated in the ED at 644 - Initial troponin not elevated and EKG does not show evidence of acute ischemia. - TTE with grade 1 diastolic dysfunction, EF= 55-60% - LE Doppler negative for DVT - Continue to monitor I/Os , so far this admission net negative 22L - Continue Lasix 20mg BID as long as kidneys continue to tolerate, likely close to euvolemic - Restart Jardiance - Continue to monitor on telemetry - Has had a consistent 4L oxygen requirement, will likely need home oxygen upon discharge COPD - Exam consistent with acute exacerbation of COPD; improving - Think larger component of CHF vs COPD, plan to stop steroids - Continue with home inhaler regimen -Elevated bicarb on labs, could be secondary to COPD. RACHELLE also possibility, will need sleep study as an OP. - Started on acetazolamide with improvement in bicarb - Has PFTs scheduled for 03/2023 - DuoNebs - Incentive spirometry, flutter valve - Plan to check overnight pulse ox with ABG qAM tonight Hypocalcemia - Patient found to have significant hypocalcemia with serum calcium level at 5 upon initial arrival along with low albumin level of 1.9 - Patient given IV calcium in the ED and repeat calcium level improved to 9.3 - Will continue to trend Hypomagnesemia - Repleted - Will continue to trend Hypokalemia - Present on presentation, resolved - Continue to trend HLD - continue statin HTN - continue home ARB, losartan on formulary DM2 - continue to hold metformin, restart Jardiance - SSI - Hemoglobin A1c= 7.3 (2) COPD (chronic obstructive pulmonary disease): (3) Hypocalcemia: (4) Hypomagnesemia: (5) Hypokalemia: (6) Hyperlipidemia: (7) Hypertension: (8) Type II diabetes mellitus: Admission and Anticipated Discharge Date Admission Date: January 24, 2023 Supervising Physician Co-Signing Physician Notes I personally examined the patient and verified all bridges points of history and exam, discussed case, and agree with decision making with Dr Pavon Feeling good overall. Started to discuss discharge planning more. Vitals noted, in general he is awake and alert pleasant no distress. HEENT normocephalic atraumatic mucous membranes moist. Breathing unlabored no accessory muscle use good effort, still on 4L. acute hypoxic respiratory failureappears to be predominantly acute diastolic CHF, also possible elements of COPD. Continue to diurese for now and follow BMP daily (continue Diamox as well given metabolic alkalosis), PFTs pending to be done as outpatient, workup for RACHELLE/OHS (sleep study as outpt unless ABG/overnight pulse ox obviate the need). hopefully home soon otherwise as above Subjective Tyree is feeling well this morning. No complaints. Continues to have improvem ent in edema. Review of Systems Review of Systems: As per above Physical Exam Physical Exam: Constitutional: well-appearing, no acute distress HEENT: NCAT, no conjunctival injection CV: regular rhythm, no murmur appreciated, extremities well-perfused, trace LE edema Resp: End expiratory wheezes MSK: no gross deformities appreciated Skin: warm, dry, no rash appreciated. Neuro: alert, oriented, no focal neurologic deficit appreciated Results & Data Results & Data Vital Signs (Past 12 Hours) Vital Signs Temp Pulse Pulse Resp BP Pulse Ox Pulse Ox 01/30/23 03:00 92 01/30/23 03:00 36.6 C 81 20 121/73 92 01/29/23 22:18 68 01/29/23 22:44 36.3 C L 67 20 113/68 93 01/29/23 19:15 O2 Del Method O2 Del Method O2 Flow Rate O2 Flow Rate 01/30/23 03:00 Nasal Cannula 4 01/30/23 03:00 Nasal Cannula 4 01/29/23 22:18 01/29/23 22:44 Nasal Cannula 4 01/29/23 19:15 Room Air (1) CHF (congestive heart failure) Heart failure chronicity: acute Heart failure type: diastolic Qualified Code(s): I50.31 - Acute diastolic (congestive) heart failure
[2023-01-30] MEDS: CHOLECALCIFEROL 1,000 UNITS 25 MCG TAB PO SCH (07:49)
[2023-01-30] MEDS: buPROPion XL 150 MG TABCR PO SCH (07:49)
[2023-01-30] MEDS: EMPAGLIFLOZIN 10 MG TAB PO SCH (07:49)
[2023-01-30] MEDS: acetaZOLAMIDE 250 MG TAB PO SCH ×2 (07:49→20:22)
[2023-01-30] MEDS: LOSARTAN POTASSIUM 50 MG TAB PO SCH (07:50)
[2023-01-30] MEDS: ASPIRIN 81 MG ECTAB PO SCH (07:50)
[2023-01-30] MEDS: FLUTICASONE FUROATE 200MCG 14 PUFFS/INHALER INH SCH (08:10)
[2023-01-30] MEDS: FUROSEMIDE INJ 20 MG/2 ML VIAL IV SCH ×2 (08:12→17:14)
[2023-01-30] MEDS: INSULIN ASPART PER UNIT CHARGE SC SCH ×4 (08:18→20:23)
[2023-01-30 08:54] LABS: Calcium 9.7 mg/dl (8.6-10.3); Potassium 3.9 mmol/L (3.5-5.1)
[2023-01-30 08:59] LABS: BUN Creatinine Ratio 32.6 (10-20); Creatinine Clr Calc Pharmacy 95.4 ml/min; Est GFR (Non-African American) 83.7 ml/min
[2023-01-30] MEDS ORDERED: predniSONE 50 MG TAB PO SCH (09:00)
[2023-01-30] MEDS: UMECLIDINIUM/VILANTEROL 62.5/25MCG 7 PUFFS/INHALER INH SCH (09:20)
--- NOTE | 2023-01-30 12:55 | Billing Data ---
Date of Service January 30, 2023 Coding Level of Care Code 36291 SUB INP/OBS CARE
[2023-01-30] MEDS: ATORVASTATIN 20 MG TAB PO SCH (20:23)
[2023-01-31] MEDS: HEPARIN SOD 5,000 UNIT/0.5 ML VIAL SQ SCH ×2 (06:27→13:59)
[2023-01-31 06:32] LABS: Allen Test Pos (Pos); Base Excess ABG 4.7 mEq/L (-9-1.8); HCO3 ABG 32 mmol/L (19-24); Oxygen Saturation ABG 95.1 % (90-95); PCO2 ABG 58 mmHg (35-46); PO2 ABG 75 mmHg (80-95); pH ABG 7.35 (7.35-7.45)
[2023-01-31 06:59] LABS: BUN Creatinine Ratio 42.9 (10-20); Calcium 9.4 mg/dl (8.6-10.3); Creatinine Clr Calc Pharmacy 98.7 ml/min; Est GFR (African American) 102.1 ml/min; Est GFR (Non-African American) 88.1 ml/min; Magnesium 1.9 mg/dl (1.7-2.4); Potassium 3.9 mmol/L (3.5-5.1)
--- NOTE | 2023-01-31 07:28 | Hospitalist Progress Note ---
Date of Service January 31, 2023 Assessment & Plan (1) CHF (congestive heart failure): Plan: HFpEF - Clinically appears as though he could be approaching euvolemia - proBNP elevated in the ED at 644 - Initial troponin not elevated and EKG does not show evidence of acute ischemia. - TTE with grade 1 diastolic dysfunction, EF= 55-60% - LE Doppler negative for DVT - Continue to monitor I/Os , so far this admission net negative 22L - Continue Lasix 20mg BID as long as kidneys continue to tolerate, likely close to euvolemic - Restart Jardiance - Continue to monitor on telemetry - Has had a consistent 4L oxygen requirement, will likely need home oxygen upon discharge COPD - Exam consistent with acute exacerbation of COPD; improving - Think larger component of CHF vs COPD, plan to stop steroids - Continue with home inhaler regimen -Elevated bicarb on labs, could be secondary to COPD. RACHELLE also possibility, will need sleep study as an OP. - Started on acetazolamide with improvement in bicarb - Has PFTs scheduled for 03/2023 - DuoNebs - Incentive spirometry, flutter valve - Plan to check overnight pulse ox with ABG qAM tonight Hypocalcemia - Patient found to have significant hypocalcemia with serum calcium level at 5 upon initial arrival along with low albumin level of 1.9 - Patient given IV calcium in the ED and repeat calcium level improved to 9.3 - Will continue to trend Hypomagnesemia - Repleted - Will continue to trend Hypokalemia - Present on presentation, resolved - Continue to trend HLD - continue statin HTN - continue home ARB, losartan on formulary DM2 - continue to hold metformin, restart Jardiance - SSI - Hemoglobin A1c= 7.3 (2) COPD (chronic obstructive pulmonary disease): (3) Hypocalcemia: (4) Hypomagnesemia: (5) Hypokalemia: (6) Hyperlipidemia: (7) Hypertension: (8) Type II diabetes mellitus: Admission and Anticipated Discharge Date Admission Date: January 24, 2023 Review of Systems Review of Systems: As per above Physical Exam Physical Exam: Constitutional: well-appearing, no acute distress HEENT: NCAT, no conjunctival injection CV: regular rhythm, no murmur appreciated, extremities well-perfused, trace LE edema Resp: End expiratory wheezes MSK: no gross deformities appreciated Skin: warm, dry, no rash appreciated. Neuro: alert, oriented, no focal neurologic deficit appreciated Results & Data Results & Data Vital Signs (Past 12 Hours) Vital Signs Temp Pulse Pulse Pulse Pulse Pulse Resp 01/31/23 07:02 91 H 01/31/23 03:41 36.5 C 73 18 01/31/23 03:00 01/31/23 02:34 67 01/30/23 22:00 72 01/30/23 23:20 66 67 01/30/23 22:19 71 01/30/23 22:18 73 71 01/30/23 22:15 72 01/30/23 21:36 01/30/23 20:21 76 01/30/23 22:41 36.4 C L 69 17 BP BP Pulse Ox Pulse Ox Pulse Ox Pulse Ox Pulse Ox 01/31/23 07:02 01/31/23 03:41 109/64 92 01/31/23 03:00 93 01/31/23 02:34 92 01/30/23 22:00 01/30/23 23:20 85 L 92 01/30/23 22:19 89 L 01/30/23 22:18 86 L 87 L 01/30/23 22:15 88 L 01/30/23 21:36 01/30/23 20:21 113/64 01/30/23 22:41 111/64 93 O2 Del Method O2 Del Method O2 Del Method O2 Del Method O2 Del Method O2 Flow Rate O2 Flow Rate 01/31/23 07:02 01/31/23 03:41 Nasal Cannula 4.0 01/31/23 03:00 Nasal Cannula 01/31/23 02:34 Nasal Cannula 4 01/30/23 22:00 01/30/23 23:20 Nasal Cannula Nasal Cannula 3 01/30/23 22:19 Nasal Cannula 3 01/30/23 22:18 Room Air Nasal Cannula 2 01/30/23 22:15 Room Air Room Air 01/30/23 21:36 Nasal Cannula 3 01/30/23 20:21 01/30/23 22:41 Nasal Cannula 3 O2 Flow Rate O2 Flow Rate FiO2 01/31/23 07:02 01/31/23 03:41 01/31/23 03:00 4 01/31/23 02:34 01/30/23 22:00 01/30/23 23:20 4 01/30/23 22:19 01/30/23 22:18 01/30/23 22:15 21 01/30/23 21:36 01/30/23 20:21 01/30/23 22:41 (1) CHF (congestive heart failure) Heart failure chronicity: acute Heart failure type: diastolic Qualified Code(s): I50.31 - Acute diastolic (congestive) heart failure
[2023-01-31] MEDS: INSULIN ASPART PER UNIT CHARGE SC SCH ×3 (07:56→16:54)
[2023-01-31] MEDS: FLUTICASONE FUROATE 200MCG 14 PUFFS/INHALER INH SCH (08:07)
[2023-01-31] MEDS: UMECLIDINIUM/VILANTEROL 62.5/25MCG 7 PUFFS/INHALER INH SCH (08:07)
[2023-01-31] MEDS: buPROPion XL 150 MG TABCR PO SCH (08:09)
[2023-01-31] MEDS: CHOLECALCIFEROL 1,000 UNITS 25 MCG TAB PO SCH (08:10)
[2023-01-31] MEDS: acetaZOLAMIDE 250 MG TAB PO SCH (08:10)
[2023-01-31] MEDS: ASPIRIN 81 MG ECTAB PO SCH (08:10)
[2023-01-31] MEDS: EMPAGLIFLOZIN 10 MG TAB PO SCH (08:10)
[2023-01-31] MEDS: LOSARTAN POTASSIUM 50 MG TAB PO SCH (08:11)
[2023-01-31] MEDS: FUROSEMIDE INJ 20 MG/2 ML VIAL IV SCH (08:57)
--- NOTE | 2023-01-31 10:49 | Discharge Summary ---
Date of Service January 31, 2023 Admission HPI Per Admitting Provider This is a 66-year-old male with past medical history significant for underlying COPD, type 2 diabetes mellitus, hyperlipidemia, hypertension, CHF who presents to the emergency department complaints of worsening shortness of breath over the past week. Patient reports that has been having increasing exertional dyspnea associated with increased swelling in his lower extremities. Patient had reported developing flulike symptoms about 3 to 4 weeks ago and has been recovering subsequent to this. However patient reported that over the last week he developed increasing shortness of breath that worsens with exertion. The lower extremity edema has been involving both his extremities and patient has been having weight gains with fatigue even with minor exertion. The symptoms are worsened over the past 24 hours and hence patient presents to ED for further evaluation. Patient otherwise denies any fevers or chills. No chest pain reported. Patient reports that his lower extremity has been swollen and has been uncomfortable . Patient admits to taking his medications as prescribed. Patient was evaluated in the ED and found to have evidence of bilateral lower extremity edema along with elevated proBNP and was given a dose of IV Lasix along with bronchodilators. Patient being admitted for further management of his acute CHF. Principal Diagnosis HFpEF Discharge Exam Constitutional: well-appearing, no acute distress HEENT: NCAT, no conjunctival injection CV: regular rhythm, no murmur appreciated, extremities well-perfused, trace LE edema Resp: End expiratory wheezes MSK: no gross deformities appreciated Skin: warm, dry, no rash appreciated. Neuro: alert, oriented, no focal neurologic deficit appreciated Discharge Data Allergies Allergy/AdvReac Type Severity Reaction Status Date / Time No Known Allergies Allergy Verified 01/23/23 22:15 Consultations 01/23/23 23:56 ED Decision to Admit Stat 01/24/23 03:56 Consult Cardiology Routine Ordered Studies 01/24/23 02:36 US venous doppler LE Urgent Hospital Course (1) CHF (congestive heart failure): HFpEF - Upon presentation proBNP elevated in the ED at 644 and clinically appeared hypervolemic - Initial troponin not elevated and EKG does not show evidence of acute ischemia. - TTE with grade 1 diastolic dysfunction, EF= 55-60% - LE Doppler negative for DVT - Was diuresed with Lasix and ended up net negative 26L - Plan to discharge on 40mg Lasix daily, f/u with PCP next week. Repeat BMP and adjust Lasix based on creatine. - Low sodium diet - Did require 4L NC throughout admission, plan to d/c on home oxygen RACHELLE - overnight pulse ox and qAM ABG qualified for CPAP - Working to get set up for home - Of note did have elevated bicarb on labs, was on acetazolamide-> stopped at d/c. Repeat BMP next week and adjust accordingly. COPD - Initial concern for COPD exacerbation - Treated with steroids, weaned prior to d/c - Plan to continue with home inhaler regimen Hypocalcemia - Patient found to have significant hypocalcemia with serum calcium level at 5 upon initial arrival along with low albumin level of 1.9 - Patient given IV calcium in the ED and repeat calcium level improved to 9.3 and remained stable Hypomagnesemia - Repleted; resolved Hypokalemia - Repleted; Resolved - Repeat BMP early next week to ensure it is stable with the Lasix HLD - continue statin HTN - continue home ARB, losartan on formulary DM2 - Hemoglobin A1c= 7.3 - continue home medications (2) COPD (chronic obstructive pulmonary disease): (3) Hypocalcemia: (4) Hypomagnesemia: (5) Hypokalemia: (6) Hyperlipidemia: (7) Hypertension: (8) Type II diabetes mellitus: Total Time Total Time Spent Total Time Spent (In Minutes): <30 Discharge Plan Discharge Items Patient Disposition: Home - Self-Care Reason For Visit: ACUTE CHF EXACERBATION Discharge Diagnosis: HFpEF Condition on Discharge: Serious Activity: Per Instructions section Non-emergency contact: Primary Care Provider Call non-emergency contact if: you have any medication questions Follow-up/Referrals: Jose Martin Bourgeois MD [Primary Care Provider] - 02/04/23 8:30 am (Will see Elba Valencia PA-C at Dr Bourgeois's office) Diet: Regular Addtl Attending Provider Instructions: While you were in the hospital we were able to get quite a bite of fluid off of you. We think this likely built up because of your heart, but the over all trigger was likely too much sodium in the diet. When you go home it will be important to have a low sodium diet. Your maximum sodium for the day should be 2000mg. It will be a lot easier to stay under the 200mg of sodium eating "real" foods as opposed to packaged foods. It will be important to read food labels, and pay attention to the serving size when you calculate how much sodium is in it. Over the next month write down and keep a log on paper or on your phone with the amount of sodium you are eating in a day. When you get home, starting on Friday, we would like you to start taking 40mg of Lasix (furosemide) every day. This is the same dose you were taking before coming to the hospital, but we would like you to take it every day. Going forward your primary care doctor will be able to monitor your kidney and adjust your dose of Lasix. We would like you to follow up with him in the office early next week and have labs checked at that time. While you were in the hospital you were on oxygen. We plan to send you home with oxygen, we will get this all set up for you.Overtime there is a good chance you will able to decrease the amount of oxygen you need, and eventually stop using it. Based in the labs and studies that you had in the hospital, we feel that you have sleep apnea. You were approved to get a CPAP machine, based on your labs in the hospital, so you will not need to get a sleep study done. We ordered a CPAP and are working to have the equipment delivered to you. Once you start using the CPAP, try to keep an open mind and go in with the mind set that using the CPAP will help you to feel less fatigued. It will also help to protect your heart and lungs from further damage from the sleep apnea. Pending Studies at Discharge: No Stand-Alone Forms: [facility], Smoking Cessation Medications and DC Order Prescriptions: Continued irbesartan 150 mg tablet 150 mg PO QAM Qty: 90 3RF atorvastatin 20 mg tablet 20 mg PO HS Qty: 90 3RF Trelegy Ellipta 200-62.5-25 mcg blister with device 1 inh inhalation DAILY Qty: 1 5RF metformin 500 mg tablet extended release 24 hr 500 mg PO .COMPLEX Qty: 270 3RF Hold Instructions: due to pancreatitis Rx Instructions: 500 mg PO ; Take one tablet in the morning and then 2 tablets in the evening bupropion HCl 150 mg tablet extended release 24 hr 150 mg PO QAM Qty: 30 5RF Jardiance 10 mg tablet 10 mg PO DAILY Qty: 30 5RF Rx Instructions: PER PT "STOPPED TAKING ABOUT A WEEK AGO, ? SIDE EFFECT FROM MED CAUSING LEGS TO SWELL". cholecalciferol (vitamin D3) 50 mcg (2,000 unit) tablet 2,000 unit PO QAM aspirin 81 mg Tablet,Delayed Release (Dr/Ec) 81 mg PO QAM tramadol 50 mg tablet 50 - 100 mg PO Q6H PRN (Reason: Pain) Rx Instructions: 1-2 tablets PO Q6H PRN; Changed furosemide 40 mg tablet 40 mg PO DAILY 30 Days Qty: 30 1RF Held potassium chloride 10 mEq capsule, extended release 10 meq PO Q OTHER DAY Hold Instructions: Hold until f/u instructions with PCP Rx Instructions: Take every other day on days that lasix is taken. Discharge Orders: Discharge Order (Routine); Ordered 01/31/23 Ordered By: Latrice Foss/Other Patient Handouts: Managing Type 2 Diabetes, Special Foot Care for Diabetes Admission Data Admit Date/Time: 01/24/23 01:52 Attending Provider: Last [facility] Admit Provider: Osiel Moore Primary Care Provider: Jose Martin Bourgeois Other Providers: Osiel Moore ; Cj Bennett ; Roni Gar ; Kashif Walker ; Guy Rendon ; Tomas Lawton ; Kevin Rashid Jr ; Jose Rothman ; Ellen Medina ; Yady Bro ; Damien Antonio ; Jose Martin Damico ; Ishan Carmichael ; Penny Best ; Fernanda Taylor ; Gavino Jefferson ; Fili Robertson ; Guy Ji V. Other Interventions: Discharge Summary Assessment (RN) Last Done: 01/31/23 15:10 Supervising Physician Co-Signing Physician Notes I personally examined the patient and verified all bridges points of history and exam, discussed case, and agree with decision making with Dr Pavon Feels good overall. Feels up to going home. Discussed oxygen, sodium restriction, nocturnal pressure support discussed extensively. Vitals noted, in general he is awake and alert pleasant no distress. HEENT normocephalic atraumatic mucous membranes moist. Breathing unlabored no accessory muscle use good effort, still on 4L. acute hypoxic respiratory failure and chronic hypercapnic respiratory failure, possibly/probably some degree of chronic hypoxic respiratory failureappears to be predominantly acute diastolic CHF, also possible elements of COPD. home on lasix 40mg for now -discussed that over time we might be to wean this down to nothingespecially if he is careful about sodium restriction. Follow-up PCP in 3 to 5 daysbasic metabolic panelcontinue to titrate Lasix based on his fluid status, blood pressure, breathing, and labs. Trilogy set up for home due to his highly probable OHS, and hypercapnic respiratory failure that is probably a mixture of COPD, RACHELLE, OHSwe will ask that he be referred to sleep medicine follow-up for ongoing management and titration, but definitely appeared that he would significantly benefit from nocturnal pressure support trilogy can provide. otherwise as above Patient has Chronic Hypercarbic Respiratory failure due to COPD, RACHELLE/OHS. He has evidence for CO2 retention and requires noninvasive ventilation at home for optimal management. BiPAP was considered and ruled out to the inability to provide noninvasive ventilation of adequate degree. Continuous alarm systems and backup are required for optimal management due to power outage. This patient is at risk for respiratory failure without noninvasive ventilation at home. This could prevent repeated hospital admissions and improve the quality of life for the patient. Resident Activity Tracking Resident Involvement: Resident Care Provided Care Provided: Adult Hospital Medicine
--- NOTE | 2023-01-31 15:43 | Billing Data ---
Date of Service January 31, 2023 Coding Level of Care Code 39320 IN/OBS DISCH 30 MIN/LESS
[2023-01-31 17:05] VITALS: BP 103/69; PULSE 90; TEMP 97.9; O2SAT 90
== END 2023-01-31 17:56 | disposition home or self-care (01) | DRG 291 ==
LOC: ED 20:42 → 2S 01-24 01:52 → SUATTDRO 01-24 01:52 → 2S 01-24 02:59